=== PATIENT | female | born 1955 | race Caucasian/White ===

== ENCOUNTER → 2017-05-06 | Outpatient (CLI) | payer OTHER ==
[~2017-05-06] MED LIST: ACET325 PO; ALBU.083IS IH; ALBU8HFA2 INH; ALBU90I INH; ALBU90OI INH; ALBU90OI6 INH; ARIP10 PO; ASPI81EC PO; Abilify5 MG PO; Aspir-Trin325 MG PO; Augmentin 875-1 EACH PO; BISA10S PR; BUME2 PO; BUSP10 PO; BUSP5 PO; CEPH500 PO; CIPR250 PO; CIPR500 PO; CLON.1 PO; CLON1 PO; CLOT10 MT; CLOT10 SS; CYCL0.05OP; CYCL10 PO; Cipro500 MG PO; Cymbalta20 MG PO; DOCSEN PO; DOCU100 PO; DOXE10 PO; DOXE25 PO; DOXE50 PO; DULO30 PO; DULO60 PO; ENOX40I SC; FERR325 PO; FLUSAL1005 IH; FLUSAL2505 INH; FLUSAL5005 IH; FURO20 PO; FURO40 PO; Ferrous Glucon324 M1 PO; GABA100 PO; GABA300 PO; GUAI600T33 PO; HYDACE5 PO; HYDHOMSY; HYDMOR2 PO; HYDR1TAB94 PO; IBUP600 PO; IBUP800 PO; INSUASPI SC; INSULANI SC; INSULANPEN SC; LACT10SY PO; LACTULOSE20 GM/30 M PO; LAVAP17G PO; LEVFLO500 PO; LEVO750 PO; LIDO700A20 TOP; Lactulose10 GM/151 PO; MAGCHL64ER PO; MAGIC MOUTHWASH; MAGOXI400 PO; MEDR10 PO; METCAR500 PO; METF500 PO; METO2.5 PO; MILK THISTLE PO; MONT10T PO; MORP15ER PO; Melatonin5 M1 PO; Motion Sickness25 M1 PO; NICO21TP TOP; NORT10 PO; NYSTRITC; Norco 5-325 Ta1 EACH PO; Novolog Fl100 UNIT/1 SC; OLAN5 PO; OMEP20ER PO; OXYACE5T PO; OXYC10TA19 PO; OXYC5; OXYC5 PO; Omeprazole20 M1 PO; Oxycodone HCl20 M1 PO; Oxycontin20 MG PO; PANT40 PO; PERIDEX15 ML; PHENA200 PO; POTA10T; POTCHL20ER PO; PRAM.125 PO; PRAMIPEXOLE D0.25 MG PO; PRED10 PO; PRED20; PRED20 PO; Permethrin60 GM; Prednisone20 MG PO; Prilosec Otc20 MG PO; RANI150; RANI150 PO; RIFA550T2 PO; Robaxin500 MG PO; Ropinirole HCl0.5 MG PO; Roxicodone5 MG PO; SACC250C PO; SENN187 PO; SPIR50 PO; SPIRIVA RESPIMAT4 GM IH; TRAACE PO; Ultram50 MG PO; VANC250 IV; VANCOMYCIN2 GM/250 M IV; VITAMIN D PO; Ventolin/Prove6.7 GM; ZOLP10 PO; ZOLP5 PO; Zithromax250 MG PO; Zofran Odt4 MG SL; [UNRECOGNIZED DRUG - REMARK] PO
[2017-05-07 17:15] LABS: Creatinine Urine 17.2 mg/dL (27.00-270.00)
[2017-05-07 18:04] LABS: Calcium, Urine 6.9 mg/dL (2.0-17.5); Calcium, Urine Calculation 193.2 mg/24hrs (42.0-353.0)
== END ==
LOC: LAB 07:24 → LAB SHORT 07:24
PROVIDERS: Internal Medicine
DX: M81.0 Age-related osteoporosis without current pathological fracture (principal)
CPT/HCPCS: 81050; 82340; 82570

== ENCOUNTER → 2017-10-11 | Outpatient (CLI) | payer OTHER ==
[~2017-10-11] MED LIST changes: -BUSP10 PO; -BUSP5 PO; -GABA100 PO; -GABA300 PO; -HYDHOMSY; -HYDR1TAB94 PO; -IBUP800 PO; -LIDO700A20 TOP; -Lactulose10 GM/151 PO; -METCAR500 PO; -Omeprazole20 M1 PO; -PERIDEX15 ML; -POTA10T; -PRAM.125 PO; -PRAMIPEXOLE D0.25 MG PO; -RIFA550T2 PO; -Robaxin500 MG PO; -Ropinirole HCl0.5 MG PO; -SPIRIVA RESPIMAT4 GM IH; -Ultram50 MG PO; -Ventolin/Prove6.7 GM
[2017-10-11 16:16] LABS: BASOPHILS ABSOLUTE AUTO 0.07 K/mm3 (0.00-0.23); BASOPHILS PERCENT AUTO 1 % (0-2); EOSINOPHILS ABSOLUTE AUTO 0.39 K/mm3 (0.00-0.68); EOSINOPHILS PERCENT AUTO 5 % (0-6); Hematocrit 45.5 % (33.0-51.0); Hemoglobin 15.6 g/dL (11.5-16.0); IMMATURE GRAN ABSOLUTE AUTO 0.04 K/mm3 (0.00-0.10); IMMATURE GRAN PERCENT AUTO 1 % (0-1); LYMPHOCYTES ABSOLUTE AUTO 1.33 K/mm3 (0.84-5.20); LYMPHOCYTES PERCENT AUTO 15 % (21-46); MONOCYTES ABSOLUTE AUTO 0.59 K/mm3 (0.16-1.47); MONOCYTES PERCENT AUTO 7 % (4-13); Mean Corpuscular HGB 29.7 pg (26.0-34.0); Mean Corpuscular HGB Conc 34.3 g/dL (31.5-36.5); Mean Corpuscular Volume 87 fL (80-100); Mean Platelet Volume 12.4 fL (9.1-12.4); NEUTROPHILS ABSOLUTE AUTO 6.21 K/mm3 (1.96-9.15); NEUTROPHILS PERCENT AUTO 72 % (41-73); Platelet Count 85 K/mm3 (150-400); RDW Coefficient Variation 15.8 % (11.7-14.2); RDW Standard Deviation 48.6 fL (35.1-46.3); Red Blood Cell Count 5.26 M/mm3 (3.80-5.20); White Blood Cell Count 8.63 K/mm3 (4.00-11.30)
[2017-10-11 16:26] LABS: Albumin/Globulin Ratio 0.7 (0.8-1.8); Bilirubin, Total 1.8 mg/dL (0.1-1.0); Calcium, Blood 9.8 mg/dL (8.5-10.1); Creatinine, Blood 1.35 mg/dL (0.40-1.00); Globulin, Blood 4.1 g/dL (2.2-4.0); Total Protein, Blood 7.1 g/dL (6.4-8.2)
== END | disposition home or self-care (01) ==
LOC: LAB EV 16:12 → LAB SHORT 16:12
PROVIDERS: General Practice
DX: K74.60 Unspecified cirrhosis of liver (principal)
CPT/HCPCS: 80053; 85025

== ENCOUNTER → 2017-10-13 | Outpatient (CLI) | payer OTHER ==
[2017-10-13 17:06] LABS: Albumin, Blood 3.6 g/dL (3.4-5.0); Albumin/Globulin Ratio 0.9 (0.8-1.8); Bilirubin, Indirect 1.7 mg/dL (0.1-0.7); Bilirubin, Total 2.7 mg/dL (0.1-1.0); Creatinine, Blood 1.09 mg/dL (0.40-1.00); Globulin, Blood 4.2 g/dL (2.2-4.0); Total Protein, Blood 7.8 g/dL (6.4-8.2)
[2017-10-13 17:07] LABS: Potassium, Blood 6.3 mmol/L (3.5-5.5)
== END ==
LOC: LAB 16:34 → LAB SHORT 16:34
PROVIDERS: Internal Medicine Nephrology
DX: N18.3 Chronic kidney disease, stage 3 (moderate) (principal); E55.9 Vitamin D deficiency, unspecified; N25.81 Secondary hyperparathyroidism of renal origin; E78.00 Pure hypercholesterolemia, unspecified; E76.9 Glucosaminoglycan metabolism disorder, unspecified; R94.5 Abnormal results of liver function studies; R94.6 Abnormal results of thyroid function studies; D63.1 Anemia in chronic kidney disease
CPT/HCPCS: 80076; 82374; 82565; 84132; 84295

== ENCOUNTER → 2017-10-14 | Outpatient (CLI) | payer OTHER | END | disposition home or self-care (01) | LOC: LAB SHORT 11:39 → LAB 11:39 | DX: K74.60 Unspecified cirrhosis of liver (principal); K72.90 Hepatic failure, unspecified without coma | CPT/HCPCS: 82140 ==

== ENCOUNTER → 2017-10-14 | Outpatient (CLI) | payer OTHER ==
[2017-10-14 12:01] LABS: Potassium, Blood 4.3 mmol/L (3.5-5.5)
== END | disposition home or self-care (01) ==
LOC: LAB SHORT 11:38 → LAB 11:38
PROVIDERS: Internal Medicine Nephrology
DX: E87.5 Hyperkalemia (principal); E87.2 Acidosis
CPT/HCPCS: 82374; 84132

== ENCOUNTER 2017-10-21 17:36 | Observation (INO) | payer OTHER ==
[~2017-10-21] VITALS: Ht 152.4 cm; Wt 80.3 kg
[2017-10-21 20:04] LABS: BASOPHILS ABSOLUTE AUTO 0.02 K/mm3 (0.00-0.23); BASOPHILS PERCENT AUTO 0 % (0-2); EOSINOPHILS ABSOLUTE AUTO 0.33 K/mm3 (0.00-0.68); EOSINOPHILS PERCENT AUTO 6 % (0-6); Hematocrit 34.8 % (33.0-51.0); Hemoglobin 11.7 g/dL (11.5-16.0); IMMATURE GRAN ABSOLUTE AUTO 0.02 K/mm3 (0.00-0.10); IMMATURE GRAN PERCENT AUTO 0 % (0-1); LYMPHOCYTES ABSOLUTE AUTO 0.76 K/mm3 (0.84-5.20); LYMPHOCYTES PERCENT AUTO 15 % (21-46); MONOCYTES ABSOLUTE AUTO 0.59 K/mm3 (0.16-1.47); MONOCYTES PERCENT AUTO 12 % (4-13); Mean Corpuscular HGB 29.4 pg (26.0-34.0); Mean Corpuscular HGB Conc 33.6 g/dL (31.5-36.5); Mean Corpuscular Volume 87 fL (80-100); Mean Platelet Volume 11.2 fL (9.1-12.4); NEUTROPHILS ABSOLUTE AUTO 3.42 K/mm3 (1.96-9.15); NEUTROPHILS PERCENT AUTO 67 % (41-73); RDW Coefficient Variation 15.3 % (11.7-14.2); RDW Standard Deviation 49.2 fL (35.1-46.3); Red Blood Cell Count 3.98 M/mm3 (3.80-5.20); White Blood Cell Count 5.14 K/mm3 (4.00-11.30)
[2017-10-21] MEDS ORDERED: Lactulose10 GM/151 PO (20:07)
[2017-10-21] MEDS ORDERED: GABA300 PO (20:08)
[2017-10-21 20:09] LABS: Platelet Count 43 K/mm3 (150-400)
[2017-10-21 20:22] LABS: Magnesium, Blood 1.5 mg/dL (1.6-2.4)
[2017-10-21 20:38] LABS: Alanine Aminotransfer (ALT/SGP 54 U/L (12-78); Albumin, Blood 2.4 g/dL (3.4-5.0); Albumin/Globulin Ratio 0.8 (0.8-1.8); Alk Phos 255 U/L (50-136); Anion Gap 10 mmol/L (6-16); Aspartate Aminotrans (AST/SGOT 38 U/L (12-37); Bilirubin, Total 1.9 mg/dL (0.1-1.0); Blood Urea Nitrogen 8 mg/dL (8-24); Bun/Creatinine Ratio 11.9 (12.0-20.0); CO2, Blood 30 mmol/L (21-32); Chloride, Blood 97 mmol/L (98-108); Creatinine, Blood 0.67 mg/dL (0.40-1.00); Glomerular Filtration Rate >60 (60-); Glucose, Blood 212 mg/dL (70-99); Potassium, Blood 2.1 mmol/L (3.5-5.5); Sodium, Blood 137 mmol/L (136-145); Total Protein, Blood 5.4 g/dL (6.4-8.2)
[2017-10-22 03:27] LABS: BASOPHILS ABSOLUTE AUTO 0.02 K/mm3 (0.00-0.23); BASOPHILS PERCENT AUTO 1 % (0-2); EOSINOPHILS ABSOLUTE AUTO 0.23 K/mm3 (0.00-0.68); EOSINOPHILS PERCENT AUTO 7 % (0-6); Hematocrit 32.8 % (33.0-51.0); IMMATURE GRAN ABSOLUTE AUTO 0.01 K/mm3 (0.00-0.10); IMMATURE GRAN PERCENT AUTO 0 % (0-1); LYMPHOCYTES ABSOLUTE AUTO 0.62 K/mm3 (0.84-5.20); LYMPHOCYTES PERCENT AUTO 18 % (21-46); MONOCYTES ABSOLUTE AUTO 0.33 K/mm3 (0.16-1.47); MONOCYTES PERCENT AUTO 9 % (4-13); Mean Corpuscular HGB 29.5 pg (26.0-34.0); Mean Corpuscular HGB Conc 33.5 g/dL (31.5-36.5); Mean Corpuscular Volume 88 fL (80-100); Mean Platelet Volume 12.7 fL (9.1-12.4); NEUTROPHILS ABSOLUTE AUTO 2.32 K/mm3 (1.96-9.15); NEUTROPHILS PERCENT AUTO 66 % (41-73); RDW Coefficient Variation 15.4 % (11.7-14.2); RDW Standard Deviation 49.8 fL (35.1-46.3); Red Blood Cell Count 3.73 M/mm3 (3.80-5.20); White Blood Cell Count 3.53 K/mm3 (4.00-11.30)
[2017-10-22 03:34] LABS: Platelet Count 36 K/mm3 (150-400)
[2017-10-22 03:50] LABS: Alanine Aminotransfer (ALT/SGP 49 U/L (12-78); Albumin, Blood 2.1 g/dL (3.4-5.0); Albumin/Globulin Ratio 0.8 (0.8-1.8); Alk Phos 218 U/L (50-136); Anion Gap 8 mmol/L (6-16); Aspartate Aminotrans (AST/SGOT 34 U/L (12-37); Bilirubin, Total 1.5 mg/dL (0.1-1.0); Blood Urea Nitrogen 9 mg/dL (8-24); Bun/Creatinine Ratio 13.8 (12.0-20.0); CO2, Blood 31 mmol/L (21-32); Calcium, Blood 7.6 mg/dL (8.5-10.1); Chloride, Blood 99 mmol/L (98-108); Creatinine, Blood 0.65 mg/dL (0.40-1.00); Globulin, Blood 2.7 g/dL (2.2-4.0); Glomerular Filtration Rate >60 (60-); Glucose, Blood 299 mg/dL (70-99); Potassium, Blood 2.3 mmol/L (3.5-5.5); Sodium, Blood 138 mmol/L (136-145); Total Protein, Blood 4.8 g/dL (6.4-8.2)
[2017-10-22 05:26] LABS: Magnesium, Blood 2.3 mg/dL (1.6-2.4); Phosphorus, Blood 3.7 mg/dL (2.5-4.9)
[2017-10-22 13:12] LABS: Source, Urine Clean Catch
[2017-10-22 13:26] LABS: Appearance, Urine Clear (Clear); Bilirubin, Urine Neg (Neg); Blood, Urine 3+ (Neg); Color, Urine Yellow (P-Yellow); Glucose Qualitative, Urine 3+ (Neg); Ketones, Urine Neg (Neg); Leukocyte Esterase, Urine 1+ (Neg); Nitrite, Urine Neg (Neg); Protein, Urine Neg (Neg); Urobilinogen, Urine NORM (Normal)
[2017-10-22 13:35] LABS: Bacteria Many /hpf; Squamous Epithelial Cells Few /hpf (Few)
[2017-10-23 05:26] LABS: BASOPHILS ABSOLUTE AUTO 0.02 K/mm3 (0.00-0.23); BASOPHILS PERCENT AUTO 1 % (0-2); EOSINOPHILS ABSOLUTE AUTO 0.36 K/mm3 (0.00-0.68); EOSINOPHILS PERCENT AUTO 8 % (0-6); Hematocrit 32.8 % (33.0-51.0); IMMATURE GRAN ABSOLUTE AUTO 0.01 K/mm3 (0.00-0.10); IMMATURE GRAN PERCENT AUTO 0 % (0-1); LYMPHOCYTES ABSOLUTE AUTO 0.69 K/mm3 (0.84-5.20); LYMPHOCYTES PERCENT AUTO 16 % (21-46); MONOCYTES ABSOLUTE AUTO 0.39 K/mm3 (0.16-1.47); MONOCYTES PERCENT AUTO 9 % (4-13); Mean Corpuscular HGB 29.6 pg (26.0-34.0); Mean Corpuscular HGB Conc 33.5 g/dL (31.5-36.5); Mean Corpuscular Volume 88 fL (80-100); Mean Platelet Volume 10.8 fL (9.1-12.4); NEUTROPHILS ABSOLUTE AUTO 2.87 K/mm3 (1.96-9.15); NEUTROPHILS PERCENT AUTO 66 % (41-73); RDW Coefficient Variation 15.7 % (11.7-14.2); RDW Standard Deviation 50.6 fL (35.1-46.3); Red Blood Cell Count 3.71 M/mm3 (3.80-5.20); White Blood Cell Count 4.34 K/mm3 (4.00-11.30)
[2017-10-23 05:41] LABS: Platelet Count 43 K/mm3 (150-400)
[2017-10-23 05:46] LABS: Anion Gap 6 mmol/L (6-16); Blood Urea Nitrogen 10 mg/dL (8-24); Bun/Creatinine Ratio 13.6 (12.0-20.0); CO2, Blood 28 mmol/L (21-32); Calcium, Blood 8.8 mg/dL (8.5-10.1); Chloride, Blood 106 mmol/L (98-108); Creatinine, Blood 0.73 mg/dL (0.40-1.00); Glomerular Filtration Rate >60 (60-); Glucose, Blood 125 mg/dL (70-99); Magnesium, Blood 2.2 mg/dL (1.6-2.4); Phosphorus, Blood 2.6 mg/dL (2.5-4.9); Potassium, Blood 3.4 mmol/L (3.5-5.5); Sodium, Blood 140 mmol/L (136-145)
[2017-10-23] MEDS ORDERED: POTA10T (11:43)
== END 2017-10-23 12:32 | disposition home or self-care (01) ==
LOC: ER 17:36 → MEDS 17:37 → ENPENDDIS 10-23 09:30 → MEDS 10-23 12:32
PROVIDERS: Emergency Medicine; Hospitalist; Internal Medicine
DX: E87.6 Hypokalemia (principal); E83.42 Hypomagnesemia; J44.9 Chronic obstructive pulmonary disease, unspecified; E11.40 Type 2 diabetes mellitus with diabetic neuropathy, unspecified; F41.9 Anxiety disorder, unspecified; F32.9 Major depressive disorder, single episode, unspecified; B19.20 Unspecified viral hepatitis C without hepatic coma; F17.210 Nicotine dependence, cigarettes, uncomplicated; Z79.4 Long term (current) use of insulin; Z88.2 Allergy status to sulfonamides; Z88.5 Allergy status to narcotic agent; Z88.8 Allergy status to other drugs, medicaments and biological substances; Z79.899 Other long term (current) drug therapy
CPT/HCPCS: 36415; 80048; 80053; 81001; 82947; 83735; 84100; 84132; 85025; 87077; 87086; 87186; 93005; 93010; 94640; 94760; 96365; 96366; 96374; 96375; 96376; 99285; G0378; J0696; J1815; J2001; J2405; J3010; J3475; J3480; J7030; J7050; J7060

== ENCOUNTER → 2017-11-05 | Outpatient (CLI) | payer OTHER ==
[~2017-11-05] MED LIST changes: +GABA300 PO; +Lactulose10 GM/151 PO; +POTA10T
[2017-11-05 18:15] LABS: White Blood Cells, Urine TNTC /hpf (0-5)
[2017-11-05 18:16] LABS: Bacteria Few /hpf; Squamous Epithelial Cells Few /hpf (Few)
[2017-11-05 19:24] LABS: Protein, Urine Random 12.8 mg/dL (0.0-11.9)
[2017-11-05 19:38] LABS: Creatinine, Urine Random 10.5 mg/dL (27.00-270.00)
== END | disposition home or self-care (01) ==
LOC: LAB SHORT 12:30 → OLS 12:30
PROVIDERS: Internal Medicine
DX: K72.90 Hepatic failure, unspecified without coma (principal)
CPT/HCPCS: 81015; 82570; 84156

== ENCOUNTER → 2018-05-13 | Outpatient (CLI) | payer OTHER | LOC: LAB 17:41 → LAB SHORT 17:41 | DX: N39.0 Urinary tract infection, site not specified (principal) | CPT/HCPCS: 87077; 87086; 87186 ==

== ENCOUNTER → 2018-06-09 | Outpatient (CLI) | payer OTHER ==
[~2018-06-09] MED LIST changes: +BUSP5 PO; +HYDHOMSY; +METCAR500 PO; +PERIDEX15 ML; +PRAM.125 PO; +SPIRIVA RESPIMAT4 GM IH; +Ventolin/Prove6.7 GM
[2018-06-09 12:43] LABS: Source, Urine Clean Catch
[2018-06-09 14:11] LABS: White Blood Cells, Urine 25-50 /hpf (0-5)
[2018-06-09 14:12] LABS: Bacteria Many /hpf; Squamous Epithelial Cells Rare /hpf (Few)
== END ==
LOC: LAB SHORT 12:24 → LAB 12:24 → LAB FUT 05-05 17:30
PROVIDERS: Nurse Practitioner Family
DX: R32 Unspecified urinary incontinence (principal); E11.9 Type 2 diabetes mellitus without complications
CPT/HCPCS: 81015; 82043; 87077; 87086; 87186

== ENCOUNTER 2018-06-18 00:22 | Emergency (ER) | payer OTHER ==
[~2018-06-18] VITALS: Ht 149.9 cm; Wt 72.6 kg
[~2018-06-18 00:22] MED LIST changes: -BUSP5 PO; -HYDHOMSY; -METCAR500 PO; -PERIDEX15 ML; -PRAM.125 PO; -SPIRIVA RESPIMAT4 GM IH; -Ventolin/Prove6.7 GM
[2018-06-18] MEDS ORDERED: Ventolin/Prove6.7 GM (00:45)
[2018-06-18] MEDS ORDERED: DOXE50 PO (00:45)
[2018-06-18] MEDS ORDERED: POTCHL20ER PO (00:45)
[2018-06-18] MEDS ORDERED: LEVO750 PO (00:45)
[2018-06-18] MEDS ORDERED: BUSP5 PO (00:46)
[2018-06-18] MEDS ORDERED: METCAR500 PO (00:46)
[2018-06-18] MEDS ORDERED: SPIRIVA RESPIMAT4 GM IH (00:46)
[2018-06-18] MEDS ORDERED: HYDHOMSY (00:46)
[2018-06-18] MEDS ORDERED: PERIDEX15 ML (00:47)
== END 2018-06-18 02:14 | disposition home or self-care (01) ==
LOC: ER 00:22
DX: R07.89 Other chest pain (principal); J44.9 Chronic obstructive pulmonary disease, unspecified; Z88.2 Allergy status to sulfonamides; Z88.5 Allergy status to narcotic agent; Z87.891 Personal history of nicotine dependence; Z79.899 Other long term (current) drug therapy
CPT/HCPCS: 71046; 93005; 93010; 96372; 99283-25; J1885

== ENCOUNTER → 2018-06-18 | Outpatient (CLI) | payer OTHER ==
[2018-06-18 23:03] LABS: Adenovirus F 40/41 Not Detected (NOT DETECT); Astrovirus Not Detected (NOT DETECT); Campylobacter Sp Not Detected (NOT DETECT); Cryptosporidium Not Detected (NOT DETECT); Cyclospora Cayetanensis Not Detected (NOT DETECT); E. Coli O157 Not Detected (NOT DETECT); Entamoeba Histolytica Not Detected (NOT DETECT); Enteroaggregative E. coli-EAEC Not Detected (NOT DETECT); Enteropathogenic E. coli-EPEC Not Detected (NOT DETECT); Enterotoxigenic E. coli-ETEC Not Detected (NOT DETECT); Giardia Lamblia Not Detected (NOT DETECT); Norovirus GI/GII Not Detected (NOT DETECT); Plesiomonas Shigelloides Not Detected (NOT DETECT); Rotavirus A Not Detected (NOT DETECT); Salmonella Sp Not Detected (NOT DETECT); Sapovirus Not Detected (NOT DETECT); Shiga Toxin-prod E. coli-STEC Not Detected (NOT DETECT); Shigella/Enteroin E. coli-EIEC Not Detected (NOT DETECT); Vibrio Cholerae Not Detected (NOT DETECT); Vibrio Sp Not Detected (NOT DETECT); Yersinia Enterocolitica Not Detected (NOT DETECT)
== END | disposition home or self-care (01) ==
LOC: LAB SHORT 16:05 → LAB 16:05
PROVIDERS: Internal Medicine Gastroenterology
DX: R19.7 Diarrhea, unspecified (principal)
CPT/HCPCS: 87507

== ENCOUNTER 2018-07-27 01:42 | Emergency (ER) | payer OTHER ==
[~2018-07-27] VITALS: Ht 149.9 cm; Wt 68.0 kg
[~2018-07-27 01:42] MED LIST changes: +BUSP5 PO; +HYDHOMSY; +METCAR500 PO; +PERIDEX15 ML; +SPIRIVA RESPIMAT4 GM IH; +Ventolin/Prove6.7 GM
[2018-07-27] MEDS ORDERED: PRAM.125 PO (02:28)
== END 2018-07-27 03:42 | disposition home or self-care (01) ==
LOC: ER 01:42
DX: G25.81 Restless legs syndrome (principal); F41.9 Anxiety disorder, unspecified; Z88.2 Allergy status to sulfonamides; Z88.8 Allergy status to other drugs, medicaments and biological substances; Z88.5 Allergy status to narcotic agent; Z79.899 Other long term (current) drug therapy; Z79.891 Long term (current) use of opiate analgesic; Z79.4 Long term (current) use of insulin; J44.9 Chronic obstructive pulmonary disease, unspecified; F17.210 Nicotine dependence, cigarettes, uncomplicated

== ENCOUNTER 2018-08-29 17:33 | Emergency (ER) | payer OTHER ==
[~2018-08-29] VITALS: Ht 149.9 cm; Wt 68.0 kg
[~2018-08-29 17:33] MED LIST changes: +PRAM.125 PO
[2018-08-29] MEDS ORDERED: IBUP800 PO (18:32)
[2018-08-29] MEDS ORDERED: Norco 5-325 Ta1 EACH PO (18:32)
== END 2018-08-29 18:40 | disposition home or self-care (01) ==
LOC: ER 17:33
DX: R07.81 Pleurodynia (principal); M79.671 Pain in right foot; J45.909 Unspecified asthma, uncomplicated; Z88.2 Allergy status to sulfonamides; Z88.5 Allergy status to narcotic agent; Z88.8 Allergy status to other drugs, medicaments and biological substances; Z79.899 Other long term (current) drug therapy; Z86.19 Personal history of other infectious and parasitic diseases; Z87.891 Personal history of nicotine dependence; Z79.4 Long term (current) use of insulin
CPT/HCPCS: 71101; 73630; 99283-25

== ENCOUNTER 2018-09-05 20:43 | Emergency (ER) | payer OTHER ==
[~2018-09-05] VITALS: Ht 149.9 cm; Wt 68.0 kg
[~2018-09-05 20:43] MED LIST changes: +IBUP800 PO
[2018-09-05] MEDS ORDERED: BUSP10 PO (21:36)
[2018-09-05] MEDS ORDERED: GABA100 PO (21:36)
[2018-09-05] MEDS ORDERED: PRAMIPEXOLE D0.25 MG PO (21:36)
[2018-09-05] MEDS ORDERED: Omeprazole20 M1 PO (21:37)
[2018-09-05] MEDS ORDERED: DULO60 PO (21:38)
[2018-09-05] MEDS ORDERED: Ropinirole HCl0.5 MG PO (21:38)
[2018-09-05] MEDS ORDERED: RIFA550T2 PO (21:42)
[2018-09-05 21:44] LABS: Source, Urine Clean Catch
[2018-09-05 21:46] LABS: Bilirubin, Urine Neg (Neg); Blood, Urine Neg (Neg); Glucose Qualitative, Urine Neg (Neg); Ketones, Urine Neg (Neg); Leukocyte Esterase, Urine Neg (Neg); Nitrite, Urine Neg (Neg); Protein, Urine Neg (Neg); Specific Gravity, Urine 1.005 (1.003-1.022); Urobilinogen, Urine NORM (Normal)
[2018-09-05 21:47] LABS: Appearance, Urine Clear (Clear); Color, Urine Yellow (P-Yellow)
[2018-09-05 21:47] LABS: BASOPHILS ABSOLUTE AUTO 0.02 K/mm3 (0.00-0.23); BASOPHILS PERCENT AUTO 0 % (0-2); EOSINOPHILS ABSOLUTE AUTO 0.25 K/mm3 (0.00-0.68); EOSINOPHILS PERCENT AUTO 6 % (0-6); Hematocrit 32.9 % (33.0-51.0); Hemoglobin 10.3 g/dL (11.5-16.0); IMMATURE GRAN ABSOLUTE AUTO 0.01 K/mm3 (0.00-0.10); IMMATURE GRAN PERCENT AUTO 0 % (0-1); LYMPHOCYTES ABSOLUTE AUTO 0.73 K/mm3 (0.84-5.20); LYMPHOCYTES PERCENT AUTO 16 % (21-46); MONOCYTES ABSOLUTE AUTO 0.42 K/mm3 (0.16-1.47); MONOCYTES PERCENT AUTO 9 % (4-13); Mean Corpuscular HGB 24.6 pg (26.0-34.0); Mean Corpuscular HGB Conc 31.3 g/dL (31.5-36.5); Mean Corpuscular Volume 79 fL (80-100); NEUTROPHILS ABSOLUTE AUTO 3.08 K/mm3 (1.96-9.15); NEUTROPHILS PERCENT AUTO 68 % (41-73); Platelet Count 59 K/mm3 (150-400); RDW Coefficient Variation 19.6 % (11.7-14.2); RDW Standard Deviation 54.7 fL (35.1-46.3); Red Blood Cell Count 4.19 M/mm3 (3.80-5.20); White Blood Cell Count 4.51 K/mm3 (4.00-11.30)
[2018-09-05 22:03] LABS: Alanine Aminotransfer (ALT/SGP 52 U/L (12-78); Albumin, Blood 2.9 g/dL (3.4-5.0); Albumin/Globulin Ratio 0.8 (0.8-1.8); Alk Phos 284 U/L (50-136); Anion Gap 8 mmol/L (6-16); Aspartate Aminotrans (AST/SGOT 42 U/L (12-37); Bilirubin, Total 1.4 mg/dL (0.1-1.0); Blood Urea Nitrogen 19 mg/dL (8-24); Bun/Creatinine Ratio 25.2 (12.0-20.0); CO2, Blood 27 mmol/L (21-32); Calcium, Blood 8.6 mg/dL (8.5-10.1); Chloride, Blood 100 mmol/L (98-108); Creatinine, Blood 0.75 mg/dL (0.40-1.00); Globulin, Blood 3.8 g/dL (2.2-4.0); Glomerular Filtration Rate >60 (60-); Glucose, Blood 256 mg/dL (70-99); Sodium, Blood 135 mmol/L (136-145); Total Protein, Blood 6.7 g/dL (6.4-8.2)
[2018-09-05] MEDS ORDERED: Ultram50 MG PO (22:26)
== END 2018-09-05 23:20 | disposition home or self-care (01) ==
LOC: ER 20:43
PROVIDERS: Emergency Medicine
DX: S92.354A Nondisplaced fracture of fifth metatarsal bone, right foot, initial encounter for closed fracture (principal); R51 Headache; J44.9 Chronic obstructive pulmonary disease, unspecified; F17.200 Nicotine dependence, unspecified, uncomplicated; Z88.2 Allergy status to sulfonamides; Z88.5 Allergy status to narcotic agent; Z88.8 Allergy status to other drugs, medicaments and biological substances; Z79.899 Other long term (current) drug therapy; Z86.19 Personal history of other infectious and parasitic diseases; W19.XXXA Unspecified fall, initial encounter
CPT/HCPCS: 36415; 80053; 81003; 85025; 93005; 93010; 99283-25

== ENCOUNTER → 2018-09-30 | Outpatient (CLI) | payer OTHER ==
[~2018-09-30] MED LIST changes: +BUSP10 PO; +GABA100 PO; +HYDR1TAB94 PO; +LIDO700A20 TOP; +Omeprazole20 M1 PO; +PRAMIPEXOLE D0.25 MG PO; +RIFA550T2 PO; +Robaxin500 MG PO; +Ropinirole HCl0.5 MG PO; +Ultram50 MG PO
== END | disposition home or self-care (01) ==
LOC: LAB SHORT 17:33 → LAB 17:33
DX: N39.0 Urinary tract infection, site not specified (principal)
CPT/HCPCS: 87086

== ENCOUNTER 2018-10-09 22:02 | Emergency (ER) | payer OTHER ==
[~2018-10-09] VITALS: Ht 149.9 cm; Wt 69.0 kg
== END 2018-10-10 01:50 | disposition home or self-care (01) ==
LOC: ER 22:02
DX: S09.90XA Unspecified injury of head, initial encounter (principal); W01.198A Fall on same level from slipping, tripping and stumbling with subsequent striking against other object, initial encounter; Z88.2 Allergy status to sulfonamides; Z88.5 Allergy status to narcotic agent; Z88.8 Allergy status to other drugs, medicaments and biological substances; Z79.899 Other long term (current) drug therapy; Z79.4 Long term (current) use of insulin; J44.9 Chronic obstructive pulmonary disease, unspecified; F17.200 Nicotine dependence, unspecified, uncomplicated
CPT/HCPCS: 70450; 72125; 96372; 99283-25; J1885; L0160

== ENCOUNTER 2018-11-02 08:34 | Emergency (ER) | payer OTHER ==
[~2018-11-02] VITALS: Ht 149.9 cm; Wt 69.0 kg
[2018-11-02] MEDS ORDERED: Robaxin500 MG PO (10:34)
[2018-11-02] MEDS ORDERED: LIDO700A20 TOP (10:34)
[2018-11-02] MEDS ORDERED: Norco 5-325 Ta1 EACH PO (10:34)
== END 2018-11-02 10:45 | disposition home or self-care (01) ==
LOC: ER 08:34
DX: S22.41XA Multiple fractures of ribs, right side, initial encounter for closed fracture (principal); W19.XXXA Unspecified fall, initial encounter; Z88.2 Allergy status to sulfonamides; Z88.8 Allergy status to other drugs, medicaments and biological substances; Z88.5 Allergy status to narcotic agent; Z79.899 Other long term (current) drug therapy; Z79.4 Long term (current) use of insulin; J44.9 Chronic obstructive pulmonary disease, unspecified; F17.200 Nicotine dependence, unspecified, uncomplicated
CPT/HCPCS: 71101; 99283-25

== ENCOUNTER 2018-11-04 23:41 | Emergency (ER) | payer OTHER ==
[~2018-11-04] VITALS: Ht 149.9 cm; Wt 70.3 kg
[2018-11-05 01:00] LABS: BASOPHILS ABSOLUTE AUTO 0.03 K/mm3 (0.00-0.23); BASOPHILS PERCENT AUTO 1 % (0-2); EOSINOPHILS ABSOLUTE AUTO 0.31 K/mm3 (0.00-0.68); EOSINOPHILS PERCENT AUTO 6 % (0-6); Hematocrit 30.8 % (33.0-51.0); Hemoglobin 9.4 g/dL (11.5-16.0); IMMATURE GRAN ABSOLUTE AUTO 0.02 K/mm3 (0.00-0.10); IMMATURE GRAN PERCENT AUTO 0 % (0-1); LYMPHOCYTES ABSOLUTE AUTO 0.81 K/mm3 (0.84-5.20); LYMPHOCYTES PERCENT AUTO 16 % (21-46); MONOCYTES ABSOLUTE AUTO 0.53 K/mm3 (0.16-1.47); MONOCYTES PERCENT AUTO 11 % (4-13); Mean Corpuscular HGB Conc 30.5 g/dL (31.5-36.5); Mean Corpuscular Volume 79 fL (80-100); NEUTROPHILS ABSOLUTE AUTO 3.37 K/mm3 (1.96-9.15); NEUTROPHILS PERCENT AUTO 66 % (41-73); Platelet Count 54 K/mm3 (150-400); RDW Coefficient Variation 21.7 % (11.7-14.2); RDW Standard Deviation 61.2 fL (35.1-46.3); Red Blood Cell Count 3.91 M/mm3 (3.80-5.20); White Blood Cell Count 5.07 K/mm3 (4.00-11.30)
[2018-11-05 01:13] LABS: International Normalized Ratio 1.27; Prothrombin Time Results 13.2 Sec (9.7-11.5)
[2018-11-05 01:20] LABS: Alanine Aminotransfer (ALT/SGP 41 U/L (12-78); Albumin, Blood 2.6 g/dL (3.4-5.0); Albumin/Globulin Ratio 0.8 (0.8-1.8); Alk Phos 232 U/L (50-136); Anion Gap 7 mmol/L (6-16); Aspartate Aminotrans (AST/SGOT 25 U/L (12-37); Blood Urea Nitrogen 14 mg/dL (8-24); Bun/Creatinine Ratio 17.9 (12.0-20.0); CO2, Blood 27 mmol/L (21-32); Chloride, Blood 102 mmol/L (98-108); Creatinine, Blood 0.78 mg/dL (0.40-1.00); Globulin, Blood 3.4 g/dL (2.2-4.0); Glomerular Filtration Rate >60 (60-); Glucose, Blood 96 mg/dL (70-99); Potassium, Blood 4.2 mmol/L (3.5-5.5); Sodium, Blood 136 mmol/L (136-145)
== END 2018-11-05 02:01 | disposition home or self-care (01) ==
LOC: ER 23:41
PROVIDERS: Emergency Medicine
DX: S30.1XXA Contusion of abdominal wall, initial encounter (principal); W18.30XA Fall on same level, unspecified, initial encounter; Z88.2 Allergy status to sulfonamides; Z88.8 Allergy status to other drugs, medicaments and biological substances; Z88.5 Allergy status to narcotic agent; Z79.899 Other long term (current) drug therapy; Z79.4 Long term (current) use of insulin; J44.9 Chronic obstructive pulmonary disease, unspecified; F17.290 Nicotine dependence, other tobacco product, uncomplicated
CPT/HCPCS: 36415; 80053; 82140; 83690; 85025; 85610; 99283; A9270-GY

== ENCOUNTER → 2018-11-10 | Outpatient (CLI) | payer OTHER ==
[2018-11-10 13:15] LABS: BASOPHILS ABSOLUTE AUTO 0.02 K/mm3 (0.00-0.23); BASOPHILS PERCENT AUTO 1 % (0-2); EOSINOPHILS ABSOLUTE AUTO 0.38 K/mm3 (0.00-0.68); EOSINOPHILS PERCENT AUTO 9 % (0-6); Hematocrit 30.2 % (33.0-51.0); Hemoglobin 9.8 g/dL (11.5-16.0); IMMATURE GRAN ABSOLUTE AUTO 0.02 K/mm3 (0.00-0.10); IMMATURE GRAN PERCENT AUTO 1 % (0-1); LYMPHOCYTES ABSOLUTE AUTO 0.64 K/mm3 (0.84-5.20); LYMPHOCYTES PERCENT AUTO 15 % (21-46); MONOCYTES ABSOLUTE AUTO 0.51 K/mm3 (0.16-1.47); MONOCYTES PERCENT AUTO 12 % (4-13); Mean Corpuscular HGB 24.2 pg (26.0-34.0); Mean Corpuscular HGB Conc 32.5 g/dL (31.5-36.5); NEUTROPHILS ABSOLUTE AUTO 2.64 K/mm3 (1.96-9.15); NEUTROPHILS PERCENT AUTO 63 % (41-73); RDW Standard Deviation 55.6 fL (35.1-46.3); Red Blood Cell Count 4.05 M/mm3 (3.80-5.20); White Blood Cell Count 4.21 K/mm3 (4.00-11.30)
[2018-11-10 13:58] LABS: Mean Corpuscular Volume 75 fL (80-100)
[2018-11-10 14:54] LABS: Platelet Count 87 K/mm3 (150-400)
== END | disposition home or self-care (01) ==
LOC: LAB EV 12:55 → LAB SHORT 12:55
PROVIDERS: Physician Assistant
DX: S20.211D Contusion of right front wall of thorax, subsequent encounter (principal)
CPT/HCPCS: 85025

== ENCOUNTER 2019-01-19 21:06 | Emergency (ER) | payer OTHER ==
[~2019-01-19] VITALS: Ht 149.9 cm; Wt 67.1 kg
== END 2019-01-19 23:43 | disposition home or self-care (01) ==
LOC: ER 21:06
DX: G25.81 Restless legs syndrome (principal); Z88.2 Allergy status to sulfonamides; Z88.8 Allergy status to other drugs, medicaments and biological substances; Z88.5 Allergy status to narcotic agent; Z79.899 Other long term (current) drug therapy; Z79.4 Long term (current) use of insulin; J44.9 Chronic obstructive pulmonary disease, unspecified; F17.200 Nicotine dependence, unspecified, uncomplicated
CPT/HCPCS: 96372; 99283-25; J1885

== ENCOUNTER → 2019-01-27 | Outpatient (CLI) | payer OTHER ==
[2019-02-01 13:19] LABS: Stool Occult Bld Immuno 1 Negative (NEGATIVE)
== END | disposition home or self-care (01) ==
LOC: LAB 13:00 → LAB SHORT 13:00
PROVIDERS: Internal Medicine Gastroenterology
DX: K57.30 Diverticulosis of large intestine without perforation or abscess without bleeding (principal); Z86.010 Personal history of colon polyps
CPT/HCPCS: 82274

== ENCOUNTER → 2019-02-10 | Outpatient (CLI) | payer OTHER | END | disposition home or self-care (01) | LOC: LAB SHORT 15:39 → LAB EV 15:39 | DX: J02.9 Acute pharyngitis, unspecified (principal) | CPT/HCPCS: 87081; 87102; 87106 ==

== ENCOUNTER 2019-03-15 20:08 | Emergency (ER) | payer OTHER ==
[~2019-03-15] VITALS: Ht 152.4 cm; Wt 81.7 kg
[2019-03-15] MEDS ORDERED: Norco 5-325 Ta1 EACH PO (21:44)
== END 2019-03-15 21:56 | disposition home or self-care (01) ==
LOC: ER 20:08
DX: S22.41XA Multiple fractures of ribs, right side, initial encounter for closed fracture (principal); J44.9 Chronic obstructive pulmonary disease, unspecified; F17.200 Nicotine dependence, unspecified, uncomplicated; Z88.2 Allergy status to sulfonamides; Z88.8 Allergy status to other drugs, medicaments and biological substances; Z88.5 Allergy status to narcotic agent; Z79.899 Other long term (current) drug therapy; Z79.4 Long term (current) use of insulin; W01.0XXA Fall on same level from slipping, tripping and stumbling without subsequent striking against object, initial encounter
CPT/HCPCS: 71101; 99283-25; A9270; A9270-GY

== ENCOUNTER 2019-04-26 17:45 | Emergency (ER) | payer OTHER ==
[~2019-04-26] VITALS: Ht 149.9 cm; Wt 77.1 kg
[2019-04-26] MEDS ORDERED: Norco 5-325 Ta1 EACH PO (19:05)
== END 2019-04-26 19:19 | disposition home or self-care (01) ==
LOC: ER 17:45
DX: M53.3 Sacrococcygeal disorders, not elsewhere classified (principal); W18.30XA Fall on same level, unspecified, initial encounter; Z88.2 Allergy status to sulfonamides; Z88.8 Allergy status to other drugs, medicaments and biological substances; Z88.5 Allergy status to narcotic agent; Z79.899 Other long term (current) drug therapy; Z79.4 Long term (current) use of insulin; J44.9 Chronic obstructive pulmonary disease, unspecified; F17.200 Nicotine dependence, unspecified, uncomplicated
CPT/HCPCS: 72220; 99283-25; A9270-GY

== ENCOUNTER 2019-05-26 17:32 | Emergency (ER) | payer OTHER ==
[~2019-05-26] VITALS: Ht 149.9 cm; Wt 72.6 kg
[~2019-05-26 17:32] MED LIST changes: -Ropinirole HCl0.5 MG PO; +Ropinirole HCl1 MG PO
== END 2019-05-26 18:01 | disposition home or self-care (01) ==
LOC: ER 17:32
DX: M79.18 Myalgia, other site (principal); J44.9 Chronic obstructive pulmonary disease, unspecified; F17.200 Nicotine dependence, unspecified, uncomplicated; Z88.5 Allergy status to narcotic agent; Z79.899 Other long term (current) drug therapy; W19.XXXA Unspecified fall, initial encounter
CPT/HCPCS: 99283; A9270

== ENCOUNTER 2019-06-19 20:42 | Inpatient (IN) | payer OTHER ==
[~2019-06-19] VITALS: Ht 149.9 cm; Wt 82.2 kg
[2019-06-19 21:14] LABS: Hematocrit 40.2 % (33.0-51.0); Hemoglobin 12.2 g/dL (11.5-16.0); Mean Corpuscular HGB 30.7 pg (26.0-34.0); Mean Corpuscular HGB Conc 30.3 g/dL (31.5-36.5); Mean Corpuscular Volume 101 fL (80-100); Mean Platelet Volume 12.6 fL (9.1-12.4); Platelet Count 108 K/mm3 (150-400); RDW Coefficient Variation 15.9 % (11.7-14.2); Red Blood Cell Count 3.98 M/mm3 (3.80-5.20); White Blood Cell Count 30.01 K/mm3 (4.00-11.30)
[2019-06-19 21:15] LABS: Chloride (POC) 102 mmol/L (98-108); Creatinine (POC) 4.2 mg/dL (0.6-1.0); Glucose (ISTAT POC) 199 mg/dL (70-99); Hemoglobin (POC) 13.6 g/dL (12.0-16.0); Potassium (POC) 7.4 mmol/L (3.5-5.5); Sodium (POC) 128 mmol/L (135-148); Total CO2 (POC) 17 mmol/L (21-32)
[2019-06-19 21:35] LABS: Troponin I <0.015 ng/mL (0.000-0.040)
[2019-06-19 21:38] LABS: Alanine Aminotransfer (ALT/SGP 35 U/L (12-78); Albumin, Blood 2.4 g/dL (3.4-5.0); Albumin/Globulin Ratio 0.6 (0.8-1.8); Alk Phos 272 U/L (50-136); Anion Gap 14 mmol/L (6-16); Aspartate Aminotrans (AST/SGOT 40 U/L (12-37); Bilirubin, Total 2.7 mg/dL (0.1-1.0); Blood Urea Nitrogen 66 mg/dL (8-24); Bun/Creatinine Ratio 17.9 (12.0-20.0); CO2, Blood 16 mmol/L (21-32); Calcium, Blood 7.8 mg/dL (8.5-10.1); Chloride, Blood 101 mmol/L (98-108); Creatinine, Blood 3.69 mg/dL (0.40-1.00); Globulin, Blood 3.7 g/dL (2.2-4.0); Glomerular Filtration Rate 13 (60-); Glucose, Blood 198 mg/dL (70-99); Potassium, Blood 7.6 mmol/L (3.5-5.5); Sodium, Blood 131 mmol/L (136-145); Total Protein, Blood 6.1 g/dL (6.4-8.2)
[2019-06-19 21:41] LABS: BAND PERCENT MAN 23 % (0-8); BASOPHILS PERCENT MAN 0 % (0-2); EOSINOPHILS PERCENT MAN 0 % (0-6); LYMPHOCYTES PERCENT MAN 6 % (21-46); MONOCYTES PERCENT MAN 1 % (4-13); SEG NEUTROPHILS PERCENT MAN 70 % (41-73); TOTAL CELLS COUNTED 100
[2019-06-19 22:04] LABS: PCO2 Arterial 45.9 mmHg (35-45)
[2019-06-19 22:05] LABS: pH Blood Arterial 7.14 (7.35-7.45)
[2019-06-19 22:49] LABS: International Normalized Ratio 1.33
--- NOTE | 2019-06-19 23:25 | NUR ---
ADMIT: PT TRANSFERRED TO ICU 6 VIA GURNEY WITH HEART MONITOR ATTACHED, RN, RECREATIONAL ASSISTANT, AND RT AT BEDSIDE. PT ON BIPAP ON ARRIVAL. PT ABLE TO ANSWER SIMPLE QUESTIONS BUT GETS WINDED QUICK. LS COARSE DIMINISHED T/O WITH EXP WHEEZES T/O, VERY TIGHT. BIPAP 14/7 FIO2 40% WITH BIOX 93%. RR 17. PT DIFFICULT TO AROUSE AT TIMES. HEART SOUND DISTANT WITH MONITOR SHOWING ST WITH HR 102. SKIN PALE, COLD AND DRY. PPP BILAT AT 1+. PAS ON AND PUMPING. RIJ CENTRAL LINE WITH LEVOPHED @75CC/HR=20MCG/MIN. JUST TITRATED LEVOPHED DOWN TO 15MCG/MIN. NS BOLUS RUNNING IN. 20G IV LAC S/L. 18 G IV FIELD START L HAND S/L. ABD R/D WITH HYPO BTX4. GEORGE TEMP DRAINING DARK YELLOW URINE. TEMP 96.4
[2019-06-20] MEDS ORDERED: ALBU3IS INH (00:12)
[2019-06-20] MEDS ORDERED: Generlac10 GM/15 M PO (00:13)
[2019-06-20 00:54] LABS: Bun/Creatinine Ratio 18.3 (12.0-20.0); Calcium, Blood 7.3 mg/dL (8.5-10.1); Creatinine, Blood 3.39 mg/dL (0.40-1.00); Potassium, Blood 6.6 mmol/L (3.5-5.5)
--- NOTE | 2019-06-20 01:30 | NUR ---
CRITICAL VALUES: CRITICAL K+ 6.6 AND LACTIC ACID 4.[address] CHARLES WITH NEW ORDERS RECEIVED.
[2019-06-20 02:59] LABS: Adenovirus Not Detected (NOT DETECT); Bordetella pertussis Not Detected (NOT DETECT); Chlamydophila pneumoniae Not Detected (NOT DETECT); Coronavirus 229E Not Detected (NOT DETECT); Coronavirus HKU1 Not Detected (NOT DETECT); Coronavirus NL63 Not Detected (NOT DETECT); Coronavirus OC43 Not Detected (NOT DETECT); Human Metapneumovirus Not Detected (NOT DETECT); Human Rhinovirus/Enterovirus Not Detected (NOT DETECT); Influenza A Not Detected (NOT DETECT); Influenza A/2009-H1 Not Detected (NOT DETECT); Influenza A/H1 Not Detected (NOT DETECT); Influenza A/H3 Not Detected (NOT DETECT); Influenza B Not Detected (NOT DETECT); Mycoplasma pneumoniae Not Detected (NOT DETECT); Parainfluenza Virus 1 Not Detected (NOT DETECT); Parainfluenza Virus 2 Not Detected (NOT DETECT); Parainfluenza Virus 3 Not Detected (NOT DETECT); Parainfluenza Virus 4 Not Detected (NOT DETECT); Respiratory Syncytial Virus Not Detected (NOT DETECT)
[2019-06-20 04:45] LABS: Hematocrit 40.2 % (33.0-51.0); Hemoglobin 12.5 g/dL (11.5-16.0); Mean Corpuscular HGB 30.3 pg (26.0-34.0); Mean Corpuscular HGB Conc 31.1 g/dL (31.5-36.5); Mean Platelet Volume 11.6 fL (9.1-12.4); Platelet Count 129 K/mm3 (150-400); RDW Coefficient Variation 15.9 % (11.7-14.2); RDW Standard Deviation 57.1 fL (35.1-46.3); Red Blood Cell Count 4.12 M/mm3 (3.80-5.20); White Blood Cell Count 43.41 K/mm3 (4.00-11.30)
[2019-06-20 04:46] LABS: Mean Corpuscular Volume 98 fL (80-100)
[2019-06-20 05:09] LABS: Albumin/Globulin Ratio 0.8 (0.8-1.8); Bilirubin, Total 3.3 mg/dL (0.1-1.0); Bun/Creatinine Ratio 19.9 (12.0-20.0); Calcium, Blood 7.9 mg/dL (8.5-10.1); Creatinine, Blood 3.11 mg/dL (0.40-1.00); Globulin, Blood 3.7 g/dL (2.2-4.0); Potassium, Blood 6.4 mmol/L (3.5-5.5); Total Protein, Blood 6.7 g/dL (6.4-8.2)
--- NOTE | 2019-06-20 06:09 | NUR ---
SHIFT SUMMARY: PT IS NOW WIDE AWAKE AND JUST JIBBERING AWAY TO HERSELF. WHEN YOU GO IN THERE TO TALK WITH HER TO FIND OUT WHAT SHE WANTS, SHE'LL TALK TO YOU, THEN LAUGH. CONTINUALLY SAYS SHE HAS TO PEE, REMINDED THAT SHE HAS A GEORGE IN PLACE. K+ CONTINUES TO BE ELEVATED; HAS RECEIVED D50, INSULIN AND BICARB 2X FOR MY SHIFT AND ONCE IN THE ER. LEVOPHED HAS BEEN TITRATED DOWN TO 5MCG/MIN.
--- NOTE | 2019-06-20 09:01 | NUR ---
CARE ASSUMED CARE AND REPORT ASSUMED FROM HARLEEN ARMIJO. PT SLEEPING BUT EASILY AROUSES. WHEN SHE IS AWAKENED, SHE IS EUPORIC AND MOVES HER EXTREMITIES IN A SPASTIC MANOR. HAS DIFFICULTY FOLLOWING CONVERSATION. AFEBRILE 97.5. LEVOPHED GTT INFUSING AT 5 MCG; MAP 62-70. [place], HR 110. TOELRATING BIPAP WELL 14/7, FIO2 40%. PT ABLE TO TOLERATE FEW SIPS OF WATER AND TAKE PO PILLS. LUNG SOUNDS CLEAR BUT DIMINISHED AT THIS TIME. NS MIV INFUSING AT 100 ML/HR PER ORDER. WILL CONTINUE TO MONITOR. DISCUSSED WITH MD JERONIMO CRITICAL CARE CONSULT. WILL CONTINUE TO MONITOR.
[2019-06-20 11:16] LABS: Bun/Creatinine Ratio 22.1 (12.0-20.0); Calcium, Blood 7.5 mg/dL (8.5-10.1); Creatinine, Blood 2.94 mg/dL (0.40-1.00); Potassium, Blood 6.3 mmol/L (3.5-5.5)
[2019-06-20 11:49] LABS: Base Excess Venous -7.1 mmol/L; Bicarbonate Venous 18.9 mmol/L (24.0-30.0); PCO2 Venous 40.1 mmHg (38-42); PO2 Venous 57.2 mmHg (38-42); pH Blood Venous 7.29 (7.34-7.37)
--- NOTE | 2019-06-20 13:00 | NUR ---
REASSESSMENT PT INTUBATED AT 1212 TODAY AFTER STRUGGLING ON BIPAP. ETOMIDATE 20 MG AND ROCURONIUM 20 MG IVP GIVEN PRIOR TO INTUBATION. INTUBATION SMOOTHLY PERFORMED BY MD HUYNH. PT IMMEDIATELY PLACE IN BUE RESTRAINTS AND PROPOFOL GTT STARTED. OGT INSERTED AND PLACEMENT OF TUBES CONFIRMED WITH XRAY. 7.5 ETT, 23 AT LIP. VENT AC 16, TV 400, PEEP 10, FIO2 70%. CALCIUM GLUCONATE, 2 AMPS D50, AND 10 UNITS INSULIN GIVEN IVP FOR HIGH POTASSIUM. SODIUM BICARB GTT STARTED AT THIS TIME. WILL RECHECK CHEMISTRY THIS AFTERNOON. WILL CONTINUE TO MONITOR.
[2019-06-20 15:48] LABS: Base Excess Venous -7.8 mmol/L; Bicarbonate Venous 18.4 mmol/L (24.0-30.0); PCO2 Venous 41.1 mmHg (38-42); PO2 Venous 77.3 mmHg (38-42); pH Blood Venous 7.28 (7.34-7.37)
[2019-06-20 16:07] LABS: Anion Gap 9 mmol/L (6-16); Blood Urea Nitrogen 67 mg/dL (8-24); Bun/Creatinine Ratio 24.7 (12.0-20.0); CO2, Blood 21 mmol/L (21-32); Calcium, Blood 7.4 mg/dL (8.5-10.1); Chloride, Blood 104 mmol/L (98-108); Creatinine, Blood 2.71 mg/dL (0.40-1.00); Glomerular Filtration Rate 19 (60-); Glucose, Blood 293 mg/dL (70-99); Potassium, Blood 5.7 mmol/L (3.5-5.5); Sodium, Blood 134 mmol/L (136-145); Troponin I <0.015 ng/mL (0.000-0.040)
--- NOTE | 2019-06-20 16:10 | NUR ---
REASSESSMENT PT INTUBATED AND SEDATED. ETT PULLED BACK 5 CM; NOW 19 AT THE LIP; PLACEMENT VERIFIED WITH CXR AND MD HUYNH AWARE OF RESULTS. UPDATED AT BEDSIDE. VENT AC 16, 400, PEEP 10, FIO2 70%. SODIUM BICARB INFUSING AT 75 ML/HR PER ORDER. PROPOFOL GTT AT 40 MCG. LEVOPHED GTT AT 14 MCG; ATTEMPTING TO TITRATE DOWN. POTASSIUM LEVEL DECREASED TO 5.7 THIS AFTERNOON. BUE RESTRAINED. SINUSTACH, HR 120S. WILL CONTINUE TO MONITOR.
--- NOTE | 2019-06-20 17:05 | NUR ---
ECHOCARDIOGRAM COMPLETED
--- NOTE | 2019-06-20 18:11 | NUR ---
SHIFT SUMMARY PT INTUBATED AT 1212; SEE NOTE. SINCE THEN PT HAS BEEN ON PROPOFOL GTT. NIMBEX GTT STARTED 1700; INFUSING AT 2 MCG; PT TWITCHES TO STIMULATOR. FENTANYL 50 MCG IVP GIVEN NEEDED FOR SEDATION ADJUNCT. FAMILY UPDATED AT BEDSIDE. PT REMAINS IN BUE. HOB ELEVATED AND PT TURNED Q2H. OGT TO LIWS. LEVOPHED GTT INFUSING AT 14 MCG. SODIUM BICARB GTT INFUSING. MEDS GIVEN FOR POTASSIUM LEVEL. TMAX 99.4. WILL CONTINUE TO MONITOR.
--- NOTE | 2019-06-20 19:25 | NUR ---
ASSUMED CARE BEDSIDE REPORT RECIEVED. PT IS LAYING IN BED QUIETLY WITH SPOUSE AT BEDSIDE. PT IS INTUBATED, SEDATED, AND PARALYZED. VENT SETTINGS AC 16, TV 400, PEEP 10, FIO2 70%. VITAL SIGNS STABLE AT THIS TIME. CL TO RIJ C/D/I WITH BICARB INFUSING AT 75 ML/HR, PROPOFOL AT 40 MCG/KG/MIN, LEVOPHED 12 MCG/MIN, AND NIMBEX AT 2 MCG/KG/MIN. TRAIN OF FOUR IS 4/4 WITH NERVE STIMULATOR. PT TOLERATING VENT WELL AT THIS TIME. OGT IN PLACE TO LIS WITH BILE OUTPUT NOTED. GEORGE TEMP PROBE IN PLACE WITH YELLOW URINE OUTPUT NOTED. SBW RESTRAINTS IN PLACE. WILL CONTINUE TO MONITOR.
[2019-06-20 22:45] LABS: Vancomycin, Random 13.7 ug/mL
[2019-06-21 03:43] LABS: Bicarbonate Venous 25.4 mmol/L (24.0-30.0); PCO2 Venous 48.8 mmHg (38-42); PO2 Venous 55.8 mmHg (38-42); pH Blood Venous 7.36 (7.34-7.37)
[2019-06-21 03:48] LABS: Hematocrit 35.9 % (33.0-51.0); Hemoglobin 11.9 g/dL (11.5-16.0); Mean Corpuscular HGB 30.8 pg (26.0-34.0); Mean Corpuscular HGB Conc 33.1 g/dL (31.5-36.5); Mean Platelet Volume 10.2 fL (9.1-12.4); Platelet Count 114 K/mm3 (150-400); RDW Coefficient Variation 15.9 % (11.7-14.2); RDW Standard Deviation 53.5 fL (35.1-46.3); Red Blood Cell Count 3.86 M/mm3 (3.80-5.20); White Blood Cell Count 41.91 K/mm3 (4.00-11.30)
[2019-06-21 03:51] LABS: Mean Corpuscular Volume 93 fL (80-100)
[2019-06-21 04:08] LABS: BAND PERCENT MAN 21 % (0-8); BASOPHILS PERCENT MAN 0 % (0-2); EOSINOPHILS PERCENT MAN 0 % (0-6); LYMPHOCYTES ABSOLUTE MAN 0.83 K/mm3 (0.84-5.20); LYMPHOCYTES PERCENT MAN 2 % (21-46); MONOCYTES ABSOLUTE MAN 0.41 K/mm3 (0.16-1.47); MONOCYTES PERCENT MAN 1 % (4-13); NEUTROPHILS ABSOLUTE MAN 40.65 K/mm3 (1.96-9.15); SEG NEUTROPHILS PERCENT MAN 76 % (41-73); TOTAL CELLS COUNTED 100
[2019-06-21 04:10] LABS: Alanine Aminotransfer (ALT/SGP 35 U/L (12-78); Albumin, Blood 2.5 g/dL (3.4-5.0); Albumin/Globulin Ratio 0.7 (0.8-1.8); Alk Phos 184 U/L (50-136); Anion Gap 7 mmol/L (6-16); Aspartate Aminotrans (AST/SGOT 41 U/L (12-37); Bilirubin, Total 1.9 mg/dL (0.1-1.0); Blood Urea Nitrogen 70 mg/dL (8-24); Bun/Creatinine Ratio 32.4 (12.0-20.0); CO2, Blood 27 mmol/L (21-32); Calcium, Blood 7.4 mg/dL (8.5-10.1); Chloride, Blood 102 mmol/L (98-108); Creatinine, Blood 2.16 mg/dL (0.40-1.00); Globulin, Blood 3.7 g/dL (2.2-4.0); Glomerular Filtration Rate 25 (60-); Glucose, Blood 233 mg/dL (70-99); Magnesium, Blood 1.6 mg/dL (1.6-2.4); Phosphorus, Blood 4.3 mg/dL (2.5-4.9); Potassium, Blood 5.4 mmol/L (3.5-5.5); Sodium, Blood 136 mmol/L (136-145); Total Protein, Blood 6.2 g/dL (6.4-8.2); Troponin I <0.015 ng/mL (0.000-0.040)
--- NOTE | 2019-06-21 05:44 | NUR ---
SHIFT SUMMARY NO ACUTE CHANGES THIS SHIFT. PT REMAINS INTUBATED, SEDATED, AND PARALYZED. VENT SETTINGS AC 16, TV 400, PEEP 10 , FIO2 50%. PT WITH MINIMAL ETT SECRETIONS. CL TO RIJ IN PLACE WITH BICARB INFUSING AT 75 ML/HR, NS TKO, PROPOFOL 40 MCG/KG/MIN, NIMBEX 2 MCG/KG/MIN, AND LEVOPHED AT 9 MCG/MIN. VITAL SIGNS HAVE REMAINED STABLE. TRAIN OF FOUR HAS REMAINED 4/4 THIS SHIFT. PT TOLERATING VENT WELL. OGT IN PLACE TO LIS WITH MINIMAL TO NO OUTPUT NOTED. GEORGE TEMP PROBE IN PLACE WITH LARGE VOLUME OF YELLOW OUTPUT NOTED. SBW RESTRAINTS REMAIN IN PLACE. NO FAMILY AT BEDSIDE AT THIS TIME. WILL CONTINUE TO MONITOR AND REPORT OFF TO ONCOMING RN.
--- NOTE | 2019-06-21 09:18 | NUR ---
ASSUMED CARE: REPORT RECEIVED FROM FRANKLYN Harris RN. ASSUMED CARE OF THIS PT AT APPROX 0700. ON ASSESSMENT, THE PT IS INTUBATED, SEDATED & PARALYZED W/ NIMBEX. SHE APPEARS COMFORTABLE & TRAIN OF FOUR 4/4 W/ NERVE STIMULATOR USE. LS ARE COARSE T/O, PT REMAINS ON VENTILATOR W/ SETTINGS: AC 16/400/10/50%, O2 SATS > 90%. MONITOR SHOWS ST W/ HR 100s. BP STABLE W/ LEVOPHED DRIP TITRATION IN FLOWSHEET. 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 TEMP GEORGE PATENT/ DRAINING CLEAR YELLOW URINE. WILL CONTINUE TO MONITOR & UPDATE NEEDED.
--- NOTE | 2019-06-21 10:30 | NUR ---
CENTRAL LINE: DRESSING CHANGE COMPLETED AT APPROX 1000 USING STERILE TECHNIQUE.
--- NOTE | 2019-06-21 13:00 | NUR ---
TUBE FEEDINGS: VITAL HP TUBE FEEDS INITIATED AT APPROX 1300 AT 20 ML/HR, WHICH IS GOAL RATE. 30 ML H2O FLUSH Q4H. PER DIETARY ORDERS.
--- NOTE | 2019-06-21 17:31 | NUR ---
Antonina is well-known to me. she was on vent and minimally awake. She did not open eyes, but nodded that she understood I was present. Prayer and assurance provided. I will continue to visit Antonina in coming days.
--- NOTE | 2019-06-21 18:11 | NUR ---
SHIFT SUMMARY: NO ACUTE CHANGES SINCE PRIOR UPDATES. PT REMAINS INTUBATED, SEDATED W/ PROPOFOL, TITRATION IN FLOWSHEET. VENT SETTINGS: AC 16/400/10/40%, PT TOLERATING WELL W/ O2 SATS > 92%. LS COARSE T/O W/ EXP WHEEZING NOTED AT TIMES. MONITOR SHOWS SR-ST, HR 90-100s. BP STABLE W/ LEVOPHED TITRATION DOCUMENTED IN FLOWSHEET. PT TOLERATING TUBE FEED WELL W/ LOW RESIDUALS. TEMP GEORGE PATENT/ DRAINING CLEAR YELLOW URINE. SKIN OVERALL CDI, Q2H TURNS TO MAINTAIN SKIN INTEGRITY. WILL CONTINUE TO MONITOR & REPORT OFF TO ONCOMING RN.
--- NOTE | 2019-06-21 19:05 | NUR ---
ASSUME CARE: REPORT RECIEVED FROM OFF GOING RN BERTO. MONITOR INTACT SHOWING SINUS TACH. HEART RATE 100'S. INTUBATED SEDATED AND RESTRAINED. VENT SETTINGS AC 16, TV 400, FIO2 40%, PEEP 10, RATE 20-24, SPO2 95-99% LUNG SOUNDS COARSE AND DECREASED WITH OCC WHEEZE T/O. SX SMALL AMT OF COLMENARES SECRETUIONS. TF INFUSING AT 20ML/HR WHICH IS GOAL. 15 ML RESIDUAL REFED WITH ORAL CARE. ABDOMEN SOFT WITH BOWEL SOUNDS FOUR QUADS. GEORGE PATENT DRAINING HARVINDER URINE. PAS TO LOWER EXTREMITIES PEDAL PULSES PRESENT WIGGLES TOES AND FINGERS TO COMMAND. SPOUSE AT BEDSIDE FOR BEDSIDE REPORT. DRESSINGS INTACT TO VARIOUS WOUNDS ON BODY. CONTINUE TO MONITOR AND REPORT CHANGE IN PATIENT CONDITION
[2019-06-21 22:46] LABS: Vancomycin, Random 18.6 ug/mL
[2019-06-22 04:07] LABS: BASOPHILS ABSOLUTE AUTO 0.04 K/mm3 (0.00-0.23); BASOPHILS PERCENT AUTO 0 % (0-2); EOSINOPHILS ABSOLUTE AUTO 0.03 K/mm3 (0.00-0.68); EOSINOPHILS PERCENT AUTO 0 % (0-6); Hematocrit 33.9 % (33.0-51.0); Hemoglobin 11.2 g/dL (11.5-16.0); IMMATURE GRAN ABSOLUTE AUTO 0.39 K/mm3 (0.00-0.10); IMMATURE GRAN PERCENT AUTO 1 % (0-1); LYMPHOCYTES ABSOLUTE AUTO 0.72 K/mm3 (0.84-5.20); LYMPHOCYTES PERCENT AUTO 3 % (21-46); MONOCYTES ABSOLUTE AUTO 0.49 K/mm3 (0.16-1.47); MONOCYTES PERCENT AUTO 2 % (4-13); Mean Corpuscular HGB 30.4 pg (26.0-34.0); Mean Corpuscular Volume 92 fL (80-100); Mean Platelet Volume 10.3 fL (9.1-12.4); NEUTROPHILS ABSOLUTE AUTO 25.96 K/mm3 (1.96-9.15); NEUTROPHILS PERCENT AUTO 94 % (41-73); Platelet Count 68 K/mm3 (150-400); RDW Coefficient Variation 15.8 % (11.7-14.2); RDW Standard Deviation 52.7 fL (35.1-46.3); Red Blood Cell Count 3.69 M/mm3 (3.80-5.20); White Blood Cell Count 27.63 K/mm3 (4.00-11.30)
[2019-06-22 04:25] LABS: Albumin, Blood 2.2 g/dL (3.4-5.0); Albumin/Globulin Ratio 0.7 (0.8-1.8); Bilirubin, Total 1.4 mg/dL (0.1-1.0); Calcium, Blood 7.8 mg/dL (8.5-10.1); Creatinine, Blood 1.42 mg/dL (0.40-1.00); Globulin, Blood 3.3 g/dL (2.2-4.0); Magnesium, Blood 1.4 mg/dL (1.6-2.4); Potassium, Blood 4.4 mmol/L (3.5-5.5); Total Protein, Blood 5.5 g/dL (6.4-8.2)
[2019-06-22 05:16] LABS: International Normalized Ratio 1.34; Prothrombin Time Results 14.1 Sec (9.7-11.5)
[2019-06-22 05:41] LABS: PCO2 Arterial 43.2 mmHg (35-45); PO2 Arterial 52.2 mmHg (80-100); pH Blood Arterial 7.44 (7.35-7.45)
--- NOTE | 2019-06-22 06:42 | NUR ---
SHIFT SUMMARY REMAINS INTUBATED, SEDATED. AND RESTRAINED. VENT SETTINGS AC 16 TV 400, FIO2 50%, PEEP 10, RESPIRATIONS 20-24, SPO2 90-98%. LUNG SOUNDS COOARSE WITH DECREASED BASES. TUBE FEEDING INFUSING AT 20ML/HR PER [place] PUMP WITH 15,10, AND 15 MLS RESIDUAL REFED WITH ORAL CARE. ABDOMEN SOFT WITH BOWEL SOUNDS FOUR QUADS. GEORGE PATENT DRAINING HRAVINDER URINE. GENERALIZED DEPENDENT EDEMA NOTED WITH PAS TO LOWER EXTREMITIES AND ALL EXTREMITIES ELEVATED ON PILLOWS. CONTINUE TO MONITOR AND REPORT CHANGE IN PATIENT CONDITION. AROUSES TO VERBAL STIMULE AND ABLE TO FOLLOW SIMPLE COMMANDS I,E, WIGGLE TOES AND FINGERS. SX SMALL AMTS CREAMY COLMENARES PINK TINTGED SECRETIONS PER ETT.
--- NOTE | 2019-06-22 08:33 | NUR ---
ASSUMED CARE: REPORT RECEIVED FROM VÍCTOR Ceballos RN. ASSUMED CARE OF THIS PT AT APPROX 0700. ON ASSESSMENT, THE PT IS INTUBATED & SEDATED W/ PROPOFOL. SHE APPEARS COMFORTABLE & IS SHOWING NO S/SX PAIN OR DISCOMFORT AT THIS TIME. SHE AWAKENS EASILY TO VERBAL STIMULUS & IS FOLLOWING COMMANDS. LS ARE MORE CLEAR THAN YESTERDAY, SCANT AMNT CLEAR SPUTUM SUCTIONED THROUGH ETT. VENT SETTINGS: AC 16/400/10/50%. O2 SATS > 90%. MONITOR SHOWS SR-ST, 90-100s, BP STABLE W/ LEVOPHED DRIP. OGT W/ TF INFUSING AT GOAL RATE, LOW RESIDUALS. TEMP GEORGE PATENT/ DRAINING. SKIN OVERALL CDI, Q2H TURNS FOR SKIN INTEGRITY. WILL CONTINUE TO MONITOR & UPDATE NEEDED.
--- NOTE | 2019-06-22 10:59 | NUR ---
DR YEAGER: PROVIDER AT BEDSIDE TO EVAL PT. STS NO PLANS FOR EXTUBATION TODAY, ALLOW PT TO REST. CXR SLIGHTLY WORSENED & STILL REQUIRING HIGH PEEP TO MAINTAIN SATS. NO OTHER ORDERS AT THIS TIME. WILL CONTINUE TO MONITOR & UPDATE NEEDED.
--- NOTE | 2019-06-22 18:35 | NUR ---
SHIFT SUMMARY: NO ACUTE CHANGES SINCE PRIOR UPDATES. PT REMAINS INTUBATED & SEDATED W/ PROPOFOL. LS ARE MORE CLEAR, VENT SETTINGS: AC 16/400/10/45%. O2 SATS > 92%. MONITOR SHOWS SR-ST W/ HR 90-100s, BP STABLE W/ LEVOPHED DRIP TITRATION IN FLOWSHEET. PT PASSING FLATUS BUT NO BM TODAY. OGT CONTINUED W/ VITAL HP TUBE FEED AT GOAL RATE, RESIDUALS <15. TEMP GEORGE PATENT/ DRAINING CLEAR YELLOW URINE. DIFFUSE ABRASIONS TO SKIN SURFACE. WILL CONTINUE TO MONITOR & REPORT OFF TO ONCOMING RN.
[2019-06-23 04:30] LABS: BASOPHILS ABSOLUTE AUTO 0.02 K/mm3 (0.00-0.23); BASOPHILS PERCENT AUTO 0 % (0-2); EOSINOPHILS ABSOLUTE AUTO 0.27 K/mm3 (0.00-0.68); EOSINOPHILS PERCENT AUTO 2 % (0-6); Hematocrit 32.8 % (33.0-51.0); Hemoglobin 10.7 g/dL (11.5-16.0); IMMATURE GRAN ABSOLUTE AUTO 0.09 K/mm3 (0.00-0.10); IMMATURE GRAN PERCENT AUTO 1 % (0-1); LYMPHOCYTES PERCENT AUTO 4 % (21-46); MONOCYTES ABSOLUTE AUTO 0.48 K/mm3 (0.16-1.47); MONOCYTES PERCENT AUTO 3 % (4-13); Mean Corpuscular HGB 30.4 pg (26.0-34.0); Mean Corpuscular HGB Conc 32.6 g/dL (31.5-36.5); Mean Corpuscular Volume 93 fL (80-100); Mean Platelet Volume 11.5 fL (9.1-12.4); NEUTROPHILS ABSOLUTE AUTO 12.74 K/mm3 (1.96-9.15); NEUTROPHILS PERCENT AUTO 91 % (41-73); RDW Coefficient Variation 16.1 % (11.7-14.2); RDW Standard Deviation 55.2 fL (35.1-46.3); Red Blood Cell Count 3.52 M/mm3 (3.80-5.20)
[2019-06-23 04:32] LABS: Platelet Count 44 K/mm3 (150-400)
[2019-06-23 04:45] LABS: Anion Gap 7 mmol/L (6-16); Blood Urea Nitrogen 60 mg/dL (8-24); CO2, Blood 27 mmol/L (21-32); Calcium, Blood 8.1 mg/dL (8.5-10.1); Chloride, Blood 107 mmol/L (98-108); Glomerular Filtration Rate 48 (60-); Glucose, Blood 120 mg/dL (70-99); Phosphorus, Blood 2.8 mg/dL (2.5-4.9); Potassium, Blood 4.1 mmol/L (3.5-5.5); Sodium, Blood 141 mmol/L (136-145); Vancomycin, Random 16.6 ug/mL
[2019-06-23 05:31] LABS: PO2 Arterial 55.8 mmHg (80-100); pH Blood Arterial 7.43 (7.35-7.45)
--- NOTE | 2019-06-23 05:37 | NUR ---
ABG DRAWN PO2 55.8 INCREASE F102 TO 55%
--- NOTE | 2019-06-23 06:35 | NUR ---
PATIENT REMAINS INTUBATED AND SEDATED WITH VENT SET AT AC 16, TV 400, PEEP 10, FIO2 55% SUCTIONING THICK WHITE SPUTUM. FIO2 TITRATED UP BY RT DUE TO ABG RESULTS. TUBE FEEDING REMAINS AT GOAL RATE OF 20/HR WITH MIN RESIDUALS. LEVOPHED DRIP CONTINUES AT 3 MCG, ATTEMPTING TO KEEP MAP AT 60. HEPARIN DC'D DUE TO LOW PLT OF 44. PROPOFOL CONTINUE AT 45MCG FOR SEDATION PATIENT MOVING FEET SPONTANEOUSLY. GRIMACE WITH ORAL CARE AND DURING BATH. BILAT WRIST RESTRAINTS REMAIN IN PLACE DUE TO UNPREDICTABLE SEDATION AND BEHAVIOR.
--- NOTE | 2019-06-23 08:00 | NUR ---
INITIAL ASSESMENT PT INTUBATED AND SEDATED OB PROP. WILL WITHDRAW FROM PAIN AND GRIMACE, PUPILS EQUAL AND WILL NOT FOLLOW COMMANDS. HYPOTENSIVE AT TIMES WHEN WEANING LEVO AND WEANING TOLERATED FOR MAP GREATER THAN 60. PALP PULSES T/O AND AFEBRILE REMAINS IN SR. TOLERATING VENT SETTINGS BUT FIGHTS AND COUGHS VENT UPON REPOSITIONING AND SATS DROP TO HIGH 80S. DIMINISHED T/O AND SUCTIONED VIA ETT WITH MOD THICK YELLOW SXN. TOLERATING TF AND ABD SOFT ROUND AND OBESE WITH BTS T/O NO BM AND TO START BOWEL REG TONIGHT. INSULIN PER SS. UO ADEQUATE CLEAR YELLOW VIA GEORGE. TURN Q2 WILL WEAN VENT AND PRESSORS TOLERATED AND WILL CONT TO MONITOR
--- NOTE | 2019-06-23 12:00 | NUR ---
PT UPDATE REMAINS SEDATED WITH GRIMACE AND WITHDRAWL FROM PAINFUL STIM AND WEANING PROP TOLERATED. TOLERATING DECREASE OF PEEP TO 7.5 ALTHOUGH STILL DESATS WITH TURNS OR STIMULATION RELATED TO VENT RESITANCE AND COUGHING. SPUTUM TO BE SENT, SMALL YELLOW THICK SXN VIA ETT AND COURSE AND DIM BILAT. NO BM, UO ADEQUATE WILL CONT TO MONITOR
--- NOTE | 2019-06-23 16:00 | NUR ---
PT UPDATE WEANING VASOACTIVES AND VENT TOLERATED, VSS, AFEBRILE AND TURNS Q 2 HR WITH ORAL CARE PER PROTOCOL. UO ADEQUATE AND NO BM. WILL CONT TO MONITOR
--- NOTE | 2019-06-23 18:22 | NUR ---
No family present at time of visit. Prayed for Antonina at bedside and comforted through touch. She is sedated and non-responsive. Value Engineer services will remain available.
--- NOTE | 2019-06-23 21:40 | NUR ---
Assumed care at 1900. Bedside report given, Ed participated. Pt sedated, intubated, lines untangled, suction readjusted. Rails up, soft restraints have finger gap. Pt's limbs elevated for minor edema, repositioned.
[2019-06-24 04:01] LABS: BASOPHILS ABSOLUTE AUTO 0.01 K/mm3 (0.00-0.23); BASOPHILS PERCENT AUTO 0 % (0-2); EOSINOPHILS ABSOLUTE AUTO 0.25 K/mm3 (0.00-0.68); EOSINOPHILS PERCENT AUTO 4 % (0-6); Hematocrit 31.2 % (33.0-51.0); Hemoglobin 10.1 g/dL (11.5-16.0); IMMATURE GRAN ABSOLUTE AUTO 0.08 K/mm3 (0.00-0.10); IMMATURE GRAN PERCENT AUTO 1 % (0-1); LYMPHOCYTES ABSOLUTE AUTO 0.44 K/mm3 (0.84-5.20); LYMPHOCYTES PERCENT AUTO 6 % (21-46); MONOCYTES ABSOLUTE AUTO 0.43 K/mm3 (0.16-1.47); MONOCYTES PERCENT AUTO 6 % (4-13); Mean Corpuscular HGB 29.9 pg (26.0-34.0); Mean Corpuscular HGB Conc 32.4 g/dL (31.5-36.5); Mean Corpuscular Volume 92 fL (80-100); NEUTROPHILS ABSOLUTE AUTO 5.73 K/mm3 (1.96-9.15); NEUTROPHILS PERCENT AUTO 83 % (41-73); RDW Standard Deviation 53.5 fL (35.1-46.3); Red Blood Cell Count 3.38 M/mm3 (3.80-5.20); White Blood Cell Count 6.94 K/mm3 (4.00-11.30)
[2019-06-24 04:10] LABS: Platelet Count 28 K/mm3 (150-400)
[2019-06-24 04:20] LABS: Alanine Aminotransfer (ALT/SGP 35 U/L (12-78); Albumin, Blood 1.8 g/dL (3.4-5.0); Albumin/Globulin Ratio 0.6 (0.8-1.8); Alk Phos 206 U/L (50-136); Anion Gap 6 mmol/L (6-16); Aspartate Aminotrans (AST/SGOT 34 U/L (12-37); Bilirubin, Total 1.5 mg/dL (0.1-1.0); Blood Urea Nitrogen 49 mg/dL (8-24); Bun/Creatinine Ratio 50.4 (12.0-20.0); CO2, Blood 26 mmol/L (21-32); Calcium, Blood 8.1 mg/dL (8.5-10.1); Chloride, Blood 110 mmol/L (98-108); Creatinine, Blood 0.97 mg/dL (0.40-1.00); Globulin, Blood 3.2 g/dL (2.2-4.0); Glomerular Filtration Rate >60 (60-); Glucose, Blood 143 mg/dL (70-99); Magnesium, Blood 1.6 mg/dL (1.6-2.4); Phosphorus, Blood 2.1 mg/dL (2.5-4.9); Potassium, Blood 3.8 mmol/L (3.5-5.5); Sodium, Blood 142 mmol/L (136-145)
[2019-06-24 05:37] LABS: PCO2 Arterial 41.4 mmHg (35-45); pH Blood Arterial 7.44 (7.35-7.45)
[2019-06-24 05:38] LABS: PO2 Arterial 57.1 mmHg (80-100)
--- NOTE | 2019-06-24 08:00 | NUR ---
ASSUMED CARE: REPORT RECEIVED FROM FRANKLYN Harris, RN & MELVIN Castillo RN. ASSUMED CARE OF THIS PT AT APPROX 0700. ON ASSESSMENT, THE PT IS INTUBATED & SEDATED, APPEARS COMFORTABLE W/ NO CURRENT S/SX PAIN. LS ARE CLEAR IN UPPER LOBES, DIM IN LOWER LOBES. VENT SETTINGS: AC 16/400/7.5/55%. O2 SATS > 90% ON AVG, OCC DESATS TO 87% W/ COUGHING. MONITOR SHOWS SR W/ HR 90s, BP STABLE W/ LEVOPHED DRIP TITRATED IN FLOWSHEET. NO RESIDUAL DURING AM CHECK, VITAL HP TF INFUSING AT GOAL RATE. TEMP GEORGE PATENT/ DRAINING DARK YELLOW URINE. DIFFUSE BRUISING & SCABS TO SKIN SURFACE, REDNESS TO PANUS. WILL CONTINUE TO MONITOR & UPDATE NEEDED.
--- NOTE | 2019-06-24 08:45 | NUR ---
DR YEAGER: PROVIDER AT BEDSIDE TO EVAL PT. WOULD LIKE SEDATION VACATION TO BE COMPLETED & FOR HIM TO BE UPDATED ON PT's CURRENT NEURO STATUS. NO OTHER CHANGES AT THIS TIME. CONTINUE CURRENT VENT SETTINGS. WILL CONTINUE TO MONITOR & UPDATE NEEDED.
--- NOTE | 2019-06-24 10:36 | NUR ---
SEDATION VACATION: PROPOFOL ON STANDBY FROM . PT AWAKE W/ EYES OPEN SPONTANEOUSLY DURING THIS TIME. MOVEMENT IS NOTED DURING THIS TIME BUT NOT PURPOSEFUL. SHE CHEWS ON ETT, WINCES, MOVES BOTH LEGS & FEET CONTINUOUSLY, BUT DOES NOT MOVE BUE OR FOLLOW DIRECTION OTHER THAN TO OPEN EYES. SINCE SEDATION RESUMED, PT IS RESTING QUIETLY AGAIN. WILL CONTINUE TO MONITOR & UPDATE NEEDED.
--- NOTE | 2019-06-24 14:09 | NUR ---
CENTRAL LINE: PICC LINE PLACED BY JAI Leija RN, TO OSVALDO. CL TO R IJ REMOVED BY THIS RN AT 1345, MANUAL PRESSURE HELD FOR 10 MINS R/T PT's LOW PLATELET COUNT, NO OOZING NOTED AFTER MANUAL PRESSURE HELD. OCCLUSIVE DRESSING PLACED TO SITE & PT TOLERATED WE
--- NOTE | 2019-06-24 14:24 | NUR ---
ASSUMED CARE ASSUMED CARE OF PT FROM ALEKSANDER THOMSON. PT INTUBATED AND SEDATED. VENT SETTINGS AC 16, TV 400, PEEP 7.5, FIO2 55%. PT WITHDRAWS TO TACTILE STIMULUS. PROPOFOL GTT 40MCG/KG. MONITOR SHOWS SINUS RHYTHM/SINUS TACH WITH PAC'S, HR 90-100'S, BP WITH MAP >65 ON 2MCG/MIN LEVOPHED GTT. PT HAS OG TUBE IN PLACE WITH VITAL HIGH PROTEIN AT 20ML/HR c 30ML Q4H H2O FLUSH. ACTIVE BOWEL TONES T/O. PT HAD MEDIUM SOFT BM. PICC LINE PLACED TO OSVALDO THIS SHIFT, WITH LR AT 100ML/HR, PROPOFOL AND LEVOPHED. RIJ CL DC'D WITH PETROLEUM GAUZE PRESSURE DRESSING IN PLACE. ZAIN SOFT WRIST RESTRAINTS IN PLACE TO PROTECT LINES, TUBES. WILL CONTINUE TO MONITOR PT.
--- NOTE | 2019-06-24 15:30 | NUR ---
PT BECOMING RESTLESS IN BED, COUGHING AND GAGGING ON ET TUBE, DE-SATURATING TO 86-88%. MEDICATED WITH 50MCG FENTANYL. PT SETTLES SOMEWHAT. WILL CONTINUE TO MONITOR.
--- NOTE | 2019-06-24 18:05 | NUR ---
SHIFT SUMMARY PT CONTINUES INTUBATED AND SEDATED. PT DE-SATURATES WITH ANY REPOSITIONING TO MID TO UPPER 80'S. FIO2 INCREASED TO 60% ON VENTILATOR. TUBE FEEDING BOTTLE AND TUBING CHANGED. RESIDUAL CHECK 50ML, RE-FED. PROPOFOL CONTINUES AT 40 MCG/KG, LEVOPHED AT 2MCG/MIN AND LR AT 100ML/HR. PT CONTINUES RESTRAINED TO PROTECT LINES, TUBES. PT'S AND SON AT BEDSIDE, UPDATED ON PT CONDITION. WILL CONTINUE TO MONITOR PT AND GIVE HANDOFF REPORT TO ONCOMING RN.
--- NOTE | 2019-06-24 23:09 | NUR ---
Assumed care of pt at 1900. Family at bedside, pt resting, vented, sedated. Pt tolerating gtts. Ed expressed thanks for care, and stated he is happy his is here for care. Ed asked what time trials are done, and stated he'd be back then. States he wishes to participate in care.
[2019-06-25 03:30] LABS: BASOPHILS ABSOLUTE AUTO 0.02 K/mm3 (0.00-0.23); BASOPHILS PERCENT AUTO 0 % (0-2); EOSINOPHILS ABSOLUTE AUTO 0.54 K/mm3 (0.00-0.68); EOSINOPHILS PERCENT AUTO 10 % (0-6); Hematocrit 30.8 % (33.0-51.0); Hemoglobin 9.8 g/dL (11.5-16.0); IMMATURE GRAN ABSOLUTE AUTO 0.22 K/mm3 (0.00-0.10); IMMATURE GRAN PERCENT AUTO 4 % (0-1); LYMPHOCYTES ABSOLUTE AUTO 0.41 K/mm3 (0.84-5.20); LYMPHOCYTES PERCENT AUTO 7 % (21-46); MONOCYTES PERCENT AUTO 7 % (4-13); Mean Corpuscular HGB 29.9 pg (26.0-34.0); Mean Corpuscular HGB Conc 31.8 g/dL (31.5-36.5); Mean Corpuscular Volume 94 fL (80-100); Mean Platelet Volume 10.1 fL (9.1-12.4); NEUTROPHILS ABSOLUTE AUTO 4.06 K/mm3 (1.96-9.15); NEUTROPHILS PERCENT AUTO 72 % (41-73); RDW Coefficient Variation 16.2 % (11.7-14.2); RDW Standard Deviation 56.1 fL (35.1-46.3); Red Blood Cell Count 3.28 M/mm3 (3.80-5.20); White Blood Cell Count 5.65 K/mm3 (4.00-11.30)
[2019-06-25 03:36] LABS: Platelet Count 27 K/mm3 (150-400)
[2019-06-25 03:48] LABS: Alanine Aminotransfer (ALT/SGP 31 U/L (12-78); Albumin, Blood 1.6 g/dL (3.4-5.0); Albumin/Globulin Ratio 0.5 (0.8-1.8); Alk Phos 207 U/L (50-136); Anion Gap 5 mmol/L (6-16); Aspartate Aminotrans (AST/SGOT 33 U/L (12-37); Bilirubin, Total 1.7 mg/dL (0.1-1.0); Blood Urea Nitrogen 45 mg/dL (8-24); Bun/Creatinine Ratio 52.6 (12.0-20.0); CO2, Blood 25 mmol/L (21-32); Calcium, Blood 7.7 mg/dL (8.5-10.1); Chloride, Blood 113 mmol/L (98-108); Creatinine, Blood 0.86 mg/dL (0.40-1.00); Globulin, Blood 3.3 g/dL (2.2-4.0); Glomerular Filtration Rate >60 (60-); Glucose, Blood 153 mg/dL (70-99); Magnesium, Blood 1.6 mg/dL (1.6-2.4); Phosphorus, Blood 2.9 mg/dL (2.5-4.9); Potassium, Blood 3.4 mmol/L (3.5-5.5); Sodium, Blood 143 mmol/L (136-145); Total Protein, Blood 4.9 g/dL (6.4-8.2)
--- NOTE | 2019-06-25 05:42 | NUR ---
Pt tolerating further reduction in levophed gtt, now on standby. PEEP on vent turned back up at 10, as pt sats unable to maintain. However, lung sounds are clear to dim, no crackles. Pt restless. Pt held head up after being pulled up for chest xray. However, pt unable to follow commands.
--- NOTE | 2019-06-25 07:15 | NUR ---
REC'D BEDSIDE REPORT FROM FRANKLYN/MELVIN ARMIJO AND AM NOW ASSUMING CARE OF THIS PT.
--- NOTE | 2019-06-25 07:52 | NUR ---
DR MANCILLA IN TO ASSESS PT. DISCUSSED LOW K/IONIZED CA.
--- NOTE | 2019-06-25 09:41 | NUR ---
DR MCCABE AND THIS RN AT THE BEDSIDE TO ASSESS PT. UPDATED HIM ON PT'S STATUS. LOW ELECTOLYTE LEVELS THAT ARE CURRENTLY BEING REPLACED. PEEP DECREASED TO 5.0 AND RT TO WITHDRAW ETT 2.5. RT RAKESH INFORMED OF THIS FROM THIS RN. WILL GIVE LASIX IV, PT IS OVER 6+ LITERS, WILL RESTART LEVOPHED IF NEEDED.
--- NOTE | 2019-06-25 10:18 | NUR ---
PT REPOSITIONED AND BECOME VERY RESTLESS. INCREASED RR HIG 30-40'S, SP02 DECREASED TO 76% AT THIS TIME. RT AT THE BEDSIDE MAKING ADJUSTMENTS. SATS RETURNED TO >90% QUICKLY WITH 2 MINUTES 100% FI02 TITRATION. VENT SETTINGS: 16/400/5/50%.
--- NOTE | 2019-06-25 16:28 | NUR ---
SHIFT SUMMARY: PT IS DROWSY POST ENDOSCOPY, WHERE HE REC'D PROPOFOL 150MG IVP FOR SEDATION. PT EASILY AROUSABLE AND NO C/O AT THIS TIME. PT TO REMAIN ON PROTONIX/OCTREOTIDE GTT FOR NOW. OK TO START ON FULL LIQUID DIET ONCE AWAKE. LUNGS ARE CLEAR T/O BUT DIMINISHED IN THE BILATERAL BASES. SP02 >90% ON 2L 02 VIA N/C T/O SHIFT. HR REGULAR, SR-90'S RANGE. ABD IS LARGE/DISTENDED/TENDER IN THE RACHAEL (R/T "CHRONIC LIVER PAIN") PT ALSO C/O MODERATE/SEVERE PAIN AT TIMES R/T VENTRICAL HERNIA. PT RECENTLY HAD ENDOSCOPY DONE, WHERE SEVERAL BANDS WERE PLACED FOR BLEEDING ULCERS IN THE SMALL INTESTINE, PER DAY SURGERY STAFF. PT TO START ON CARAFATE/REGLAN. -FULL CODE STATUS -MONITOR FOR CONTINUED BLEEDING -MONITOR H+H
--- NOTE | 2019-06-25 19:05 | NUR ---
REPORT RECEIVED BEDSIDE REPORT RECEIVED FROM ALEKSANDER HOLLINGSWORTH. PT RESTING IN BED, SEDATED WITH PROPOFOL @ 40CC/HR AND LEVOPHED @ 3CC/HR, NS @ TKO; VENT SETTINGS AT SPONT PS 5/ VOL 400/PEEP 7/ FIO2 60%. VS; HR 107- ST WITH PACs PER MONITOR, RR 20 AND SAT 91%, B/P 125/51, 99.3 TEMP PER GEORGE CATH. TF INFUSING @ 20CC/HR. AT PT BEDSIDE. PT RESPONSIVE/OPENS EYES TO VOICE/PAIN/ACTIVITY. PT WITH BILAT SOFT WRIST RESTRAINTS IN PLACE, GEORGE TO DD, AND SCDs INTACT TO BLE. VOICED NO CONCERNS/QUESTIONS AT THIS TIME. WILL CONTINUE TO MONITOR PT THROUGHOUT THIS SHIFT.
--- NOTE | 2019-06-25 19:15 | NUR ---
REPORTED OFF TO ALEKSANDER DAVIS WHOM ARE NOW ASSUMING CARE OF THIS PT.
--- NOTE | 2019-06-25 19:29 | NUR ---
SHIFT SUMMARY: PT REMAINS INTUBATED AND SEDATED ON TITRATED PROPOFOL, CURRENTLY AT 50MCG/KG/MIN. PT AT TIMES WILL BE MORE ALERT AND CHEW ON ETT. PT DOES NOT OPEN EYES OR FOLLOW ANY COMMANDS. SPONTANEOUS MOVEMENT OF THE UE/LE'S BILATERALLY, BUT NO PURPOSEFUL MOVEMENT. PUPILS 4-5 AND SLUGGISH TO LIGHT. AT BEDSIDE AND UPDATED WITH PT'S STATUS AND PLAN OF CARE. LUNGS WITH MORE COARSENESS IN THE BILATERAL BASES THIS EVENING. PT REMAINS ON PS-5, TV-400, P-7, FI02-60%. PT AT TIMES WITH TACHYPNEA WITH RR >30'S. PICC IN THE LT UA WITH LEVOPHED DECREASE TO 3MCG/MIN THIS EVENING. PT DID WELL DIURESING WITH LASIX IVP. HR REGULAR, ST 100-110. ABD ROUND/SOFT/NO GRIMACE TO PALPATION. BT'S SOMEWHAT HYPOACTIVE DESPITE BEING AT GOAL RATE ON VHP 20ML/HR. RESIDUAL 50ML OR LESS THIS SHIFT. PT INCONTINENT OF LARGE SOFT BROWN BM.
[2019-06-26 05:07] LABS: BASOPHILS ABSOLUTE AUTO 0.04 K/mm3 (0.00-0.23); BASOPHILS PERCENT AUTO 1 % (0-2); EOSINOPHILS PERCENT AUTO 13 % (0-6); Hematocrit 32.4 % (33.0-51.0); IMMATURE GRAN ABSOLUTE AUTO 0.21 K/mm3 (0.00-0.10); IMMATURE GRAN PERCENT AUTO 3 % (0-1); LYMPHOCYTES ABSOLUTE AUTO 0.58 K/mm3 (0.84-5.20); LYMPHOCYTES PERCENT AUTO 8 % (21-46); MONOCYTES ABSOLUTE AUTO 0.58 K/mm3 (0.16-1.47); MONOCYTES PERCENT AUTO 8 % (4-13); Mean Corpuscular HGB 31.2 pg (26.0-34.0); Mean Corpuscular Volume 92 fL (80-100); NEUTROPHILS ABSOLUTE AUTO 4.77 K/mm3 (1.96-9.15); NEUTROPHILS PERCENT AUTO 67 % (41-73); RDW Coefficient Variation 16.3 % (11.7-14.2); RDW Standard Deviation 54.2 fL (35.1-46.3); Red Blood Cell Count 3.53 M/mm3 (3.80-5.20); White Blood Cell Count 7.08 K/mm3 (4.00-11.30)
[2019-06-26 05:12] LABS: Platelet Count 44 K/mm3 (150-400)
[2019-06-26 05:17] LABS: Anion Gap 5 mmol/L (6-16); Blood Urea Nitrogen 46 mg/dL (8-24); Bun/Creatinine Ratio 59.1 (12.0-20.0); CO2, Blood 25 mmol/L (21-32); Calcium, Blood 7.5 mg/dL (8.5-10.1); Chloride, Blood 108 mmol/L (98-108); Creatinine, Blood 0.78 mg/dL (0.40-1.00); Glomerular Filtration Rate >60 (60-); Glucose, Blood 231 mg/dL (70-99); Potassium, Blood 3.6 mmol/L (3.5-5.5); Sodium, Blood 138 mmol/L (136-145)
--- NOTE | 2019-06-26 06:30 | NUR ---
SHIFT SUMMARY PT RESTING IN BED THIS SHIFT, VENT SETTINGS CHANGED FROM PS 5/400/7/60 TO A/C 16, VOL 400, PEEP 8, FI02 50%. PT WILL AROUSE TO STIMULI BUT DOES NOT OPEN EYES OR FOLLOW COMMANDS. HEART RATE REMAINS 100s, ST WITH PACs. LUNGS CLEAR BUL AND DIMINISHED BLL, SATS 88-95% ON VENT. ET SUCTIONED SMALL AMT COLMENARES SPUTUM. B/P VARIED THIS SHIFT AND LEVOPHED TITRATED FOR EFFECT. PROPOFOL DECREASED TO 10 mcg THIS AM FOR SEDATION VACATION. BOWEL SOUNDS HYPOACTIVE, SMEAR BM, GEORGE TO DD WITH CLEAR YELLOW URINE NOTED; 1600cc OUT THIS SHIFT. SKIN AND ORAL CARE PERFORMED, SCDs IN PLACE, 2-3+ EDEMA PRESENT. BEDSIDE REPORT GIVEN TO DAY SHIFT RN, EDEL @ 0329.
--- NOTE | 2019-06-26 09:32 | NUR ---
DR CERVANTES IN TO ASSESS PT. UPDATED WITH PT STATUS. DISCUSSED PROPOFOL BEING ON STANDBY. PT IS CURRENTLY BITING ON THE ETT. EYES ARE OPEN, HOWEVER, PT DOES NOT TRACK/FOCUS ON ANYTHING AT THIS TIME. WILL D/C PROPOFOL AND START PT ON PRECEDEX GTT.
--- NOTE | 2019-06-26 17:04 | NUR ---
DR SIMMONS IN TO ASSESS PT. UPDATED HER ON PT'S CURRENT STATUS.
--- NOTE | 2019-06-26 18:09 | NUR ---
SHIFT SUMMARY: PT REMAINS SEDATED ON TITRATED PRECEDEX AND INTUBATED. PT WAS GIVEN A LONG SEDATION VACATION OFF OF PROPOFOL AND PT OPENED EYES, HOWEVER, NO TRACKING/FOCUSING/PURPOSEFUL MOVEMENT OR FOLLOWING COMMANDS SEEMS. LUNGS ARE CLEAR IN THE UPPER LOBES, WITH OCCASIONAL COARSENESS HEARD IN THE BILATERAL BASES, WHICH IS IMPROVED WITH COUGH. PT HAS WEAK COUGH/GAG REFLEX. SR WITH OCCAS/FREQUENT PAC'S. EDEMA IMPROVED ALL OVER R/T DIURESIS WITH LASIX. ABD ROUND/SOFT/NO GRIMACE TO PALPATION. BT'S ARE DISTANT/ACTIVE X4. VHP @ 30ML/HR AND PT TOLERATING WELL. DISCUSSED NEURO STATUS WITH DR CERVANTES AND AMT OF STOOLS. INCREASED LACTULOSE TO EVERY 8 HR. GEORGE CATH DRAINING CLEAR, DARK YELLOW COLORED URINE.
--- NOTE | 2019-06-26 19:00 | NUR ---
REPORT 1959 BEDSIDE REPORT RECEIVED FROM ALEKSANDER HOLLINGSWORTH. PT RESTING IN BED, SEDATED WITH PRECEDEX @ 0.5mcg/kg/min AND ON LEVOPHED @ 4/HR AND NS @ 10CC/HR, VENT SETTINGS A/C 16, VOL 400, PEEP 5, 40%FIO2. TF @ 30CC/HR PER PUMP. GEORGE TO DD. SCDs IN PLACE. PT TURNED TO RT SIDE WITH ASSIST X2, PILLOWS FOR SUPPORT, SMALL LOOSE BROWN BM, SKIN CARE DONE, HOB @ 30, BED LOW, RAILS UP X3, CALL LIGHT IN REACH, WILL CONTINUE TO MONITOR PT THIS SHIFT.
--- NOTE | 2019-06-26 19:14 | NUR ---
BEDSIDE REPORT GIVEN TO ALEKSANDER MARKS WHOM ARE NOW ASSUMING CARE OF THIS PT.
[2019-06-27 03:29] LABS: BASOPHILS ABSOLUTE AUTO 0.03 K/mm3 (0.00-0.23); BASOPHILS PERCENT AUTO 1 % (0-2); EOSINOPHILS ABSOLUTE AUTO 0.48 K/mm3 (0.00-0.68); EOSINOPHILS PERCENT AUTO 9 % (0-6); Hematocrit 33.6 % (33.0-51.0); Hemoglobin 10.9 g/dL (11.5-16.0); IMMATURE GRAN PERCENT AUTO 2 % (0-1); LYMPHOCYTES ABSOLUTE AUTO 0.67 K/mm3 (0.84-5.20); LYMPHOCYTES PERCENT AUTO 12 % (21-46); MONOCYTES ABSOLUTE AUTO 0.53 K/mm3 (0.16-1.47); MONOCYTES PERCENT AUTO 10 % (4-13); Mean Corpuscular HGB Conc 32.4 g/dL (31.5-36.5); Mean Corpuscular Volume 93 fL (80-100); Mean Platelet Volume 12.8 fL (9.1-12.4); NEUTROPHILS ABSOLUTE AUTO 3.73 K/mm3 (1.96-9.15); NEUTROPHILS PERCENT AUTO 67 % (41-73); RDW Coefficient Variation 15.9 % (11.7-14.2); RDW Standard Deviation 54.6 fL (35.1-46.3); Red Blood Cell Count 3.63 M/mm3 (3.80-5.20); White Blood Cell Count 5.54 K/mm3 (4.00-11.30)
[2019-06-27 03:34] LABS: Platelet Count 42 K/mm3 (150-400)
[2019-06-27 03:40] LABS: Anion Gap 5 mmol/L (6-16); Blood Urea Nitrogen 45 mg/dL (8-24); Bun/Creatinine Ratio 61.1 (12.0-20.0); CO2, Blood 26 mmol/L (21-32); Calcium, Blood 8.3 mg/dL (8.5-10.1); Chloride, Blood 117 mmol/L (98-108); Creatinine, Blood 0.74 mg/dL (0.40-1.00); Glomerular Filtration Rate >60 (60-); Glucose, Blood 241 mg/dL (70-99); Phosphorus, Blood 2.4 mg/dL (2.5-4.9); Potassium, Blood 3.3 mmol/L (3.5-5.5); Sodium, Blood 148 mmol/L (136-145)
--- NOTE | 2019-06-27 06:29 | NUR ---
shift summary PT REMAINS IN BED, TURN Q2HRS WITH RESTRAINT CHECKS. PT REMAINS ON VENT A/C 16/ 400/ 5/ 40% FIO2. LUNGS CLEAR TO BUL, DIM AND COARSE TO LLL, SATS 90-93%. HRR AT 70-80s, NSR WITH PACs PER MONITOR. SBP 100-130s. PT DOES NOT FOLLOW COMMANDS WHEN OFF SEDATION BUT DOES OPEN EYES, MOVE FEET. BS PRESENT X4 WITH TUBE FEED AT GOAL OF 40cc/HR. BLOOD SUGAR CHECKS Q6HRS; 204 & 210 /C 2u SS GIVEN. PICC LINE TO LT UPPER ARM WITH NS @ TKO, LEVOPHED @ 3cc/HR, AND PRECEDEX ON STANDBY. TEMP GEORGE IN PLACE WITH CLEAR HARVINDER URINE NOTED. SMALL BM AT BEGINNING OF SHIFT, SKIN CARES COMPLETED WITH TURNS & PRN. MAX TEMP OF 100.5 THIS SHIFT & FAN APPLIED, TYLENOL GIVEN. WILL CONTINUE TO MONITOR PT AND GIVE BEDSIDE REPORT WHEN NEXT SHIFT ARRIVES.
--- NOTE | 2019-06-27 07:44 | NUR ---
ASSUMED CARE: REPORT RECEIVED FROM ROB Dubon RN & ANIKA Castillo RN. ASSUMED CARE OF THIS PT AT APPROX 0700. ON ASSESSMENT, THE PT IS INTUBATED & SEDATED, RESTING QUIETLY. PRECEDEX HAS BEEN OFF SINCE APPROX 0345 PER REPORT. PT OPENS EYES SPONTANEOUSLY & MOVES BLE. NO MOVEMENT NOTED TO BUE & PT NOT FOLLOWING COMMANDS OR TRACKING W/ EYES. VENT SETTINGS: AC 16/400/5/40% W/ O2 SATS > 90% ON AVG. LS ARE COARSE ON L SIDE, DIM IN BASES. MONITOR SHOWS SR W/ HR 70s, BP STABLE W/ LEVOPHED DRIP TITRATION DOCUMENTED IN FLOWSHEET. TUBE FEED INFUSING AT GOAL RATE OF 40 ML/HR, TEMP GEORGE PATENT/ DRAINING. SKIN OVERALL FRAGILE & ECCHYMOTIC W/ BRUISING TO R HIP & SCATTERED ACCROSS ABD. WILL CONTINUE TO MONITOR & UPDATE NEEDED.
--- NOTE | 2019-06-27 10:08 | NUR ---
DR CERVANTES: PROVIDER AT BEDSIDE TO EVAL PT. STS NO PLANS TO EXTUBATE BASED ON PT's CURRENT MENTATION. UPDATED HIM THAT PT's STATED SHE TOOK "AT LEAST 2 DAYS" TO WAKE FULLY FROM SEDATION DURING HER LAST INTUBATION. PROVIDER PLACED PT ON SPONTANEOUS W/ PS 5, PT TOLERATING WELL W/ O2 SATS > 90%.
--- NOTE | 2019-06-27 18:26 | NUR ---
RECTAL TUBE: TUBE PLACED FOR CONTINUOUS LIQUID STLS.
--- NOTE | 2019-06-27 19:00 | NUR ---
REPORT BEDSIDE REPORT RECEIVED FROM ALEKSANDER THOMSON. PT ALERT AND REMAINS ON VENT WITH SETTINGS SPONT PS 5/ VOL 400/ PEEP 5/ 45% FIO2. HRR, SR WITH PACs PER MONITOR. PICC TO LT UPPER ARM WITH LEVO @ 4mcg/HR AND NS @ 10cc/HR. GEORGE AND RECTAL TUBE DRAINING TO GRAVITY. BILAT SOFT WRIST RESTRAINTS IN PLACE AND EDEMA NOTED. ET TUBE 21cm AT THE LIPS. WILL CONTINUE TO MONITOR PT THIS SHIFT.
--- NOTE | 2019-06-27 19:14 | NUR ---
SHIFT SUMMARY: NO ACUTE CHANGES SINCE PRIOR UPDATES. PT MORE ALERT THIS AFTERNOON, TRACKING INTERMITTENTLY W/ EYES. SHE CONTINUES NOT FOLLOWING COMMANDS OR MOVING BUE. LS COARSE IN LLL, PT W/ INCREASED THICK COLMENARES/PINK SPUTUM SUCTIONED THROUGH ETT, COUGHING MORE FREQUENTLY. VENT SETTINGS UNCHANGED: SPONTANEOUS W/ PS 5/5 & 40% FIO2. O2 SATS > 90% ON AVG, OCC DESATS TO 85% W/ COUGHING/SUCTIONING. MONITOR SHOWS SR W/ HR 80-90s, BP STABLE W/ LEVOPHED DRIP TITRATION IN FLOWSHEET. TUBE FEEDS INFUSING AT GOAL RATE, LOW RESIDUALS. RECTAL TUBE PLACED FOR CONTINUOUS LIQUID STLS. TEMP GEORGE PATENT/ DRAINING. THOROUGH CATH CARE COMPLETED AFTER INCONTINENT STLS. WILL CONTINUE TO MONITOR & REPORT OFF TO ONCOMING RN.
[2019-06-28 04:24] LABS: BASOPHILS ABSOLUTE AUTO 0.02 K/mm3 (0.00-0.23); BASOPHILS PERCENT AUTO 0 % (0-2); EOSINOPHILS ABSOLUTE AUTO 0.45 K/mm3 (0.00-0.68); EOSINOPHILS PERCENT AUTO 8 % (0-6); Hematocrit 31.3 % (33.0-51.0); Hemoglobin 9.9 g/dL (11.5-16.0); IMMATURE GRAN ABSOLUTE AUTO 0.08 K/mm3 (0.00-0.10); IMMATURE GRAN PERCENT AUTO 1 % (0-1); LYMPHOCYTES PERCENT AUTO 10 % (21-46); MONOCYTES ABSOLUTE AUTO 0.66 K/mm3 (0.16-1.47); MONOCYTES PERCENT AUTO 11 % (4-13); Mean Corpuscular HGB 29.6 pg (26.0-34.0); Mean Corpuscular HGB Conc 31.6 g/dL (31.5-36.5); Mean Corpuscular Volume 94 fL (80-100); NEUTROPHILS PERCENT AUTO 69 % (41-73); RDW Coefficient Variation 16.1 % (11.7-14.2); RDW Standard Deviation 54.8 fL (35.1-46.3); Red Blood Cell Count 3.34 M/mm3 (3.80-5.20); White Blood Cell Count 5.91 K/mm3 (4.00-11.30)
[2019-06-28 04:29] LABS: Platelet Count 38 K/mm3 (150-400)
[2019-06-28 04:37] LABS: Anion Gap 2 mmol/L (6-16); Blood Urea Nitrogen 43 mg/dL (8-24); Bun/Creatinine Ratio 67.9 (12.0-20.0); CO2, Blood 29 mmol/L (21-32); Chloride, Blood 120 mmol/L (98-108); Creatinine, Blood 0.63 mg/dL (0.40-1.00); Glomerular Filtration Rate >60 (60-); Glucose, Blood 205 mg/dL (70-99); Potassium, Blood 3.2 mmol/L (3.5-5.5); Sodium, Blood 151 mmol/L (136-145)
--- NOTE | 2019-06-28 05:50 | NUR ---
SHIFT SUMMARY PT CONTINUES TO REST IN BED, REMAINS ALERT, TRACKS BUT DOES NOT FOLLOW COMMANDS. SHAKES HEAD Y/N BUT NOT CONSISTANT WITH ANSWERS. VENT REMAINS ON SPONT WITH PRESSURE SUPPORT 5, VOL 400, PEEP 5, FI02 45% AND SATS >90%. PT IS NOT SEDATED AND HAS BEEN WEANED OFF OF LEVOPHED, NS REMAINS AT TKO VIA LT PICC LINE. HEART RATE IR, SR /C PACs, RATE 100s. LUNGS COARSE TO RUL, CLEAR TO [place], DIMINISHED IN BASES, RATE 20s. BOWEL SOUNDS PRESENT; GEORGE TO DD AND RECTAL TUBE IN PLACE R/T LOOSE STOOLS. SKIN WITH IMPROVING BRUISES TO RT HIP AND ABDOMEN WITH SCATTERED SCABS AND BRUISES OVER BODY. FREQ. ORAL CARE, SKIN CARE, AND TURNS COMPLETED. FENTANYL GIVEN ONCE THIS SHIFT FOR RESTLESSNESS. FAMILY ATTENTATIVE TO PT. WILL CONTINUE TO MONITOR PT REST OF THIS SHIFT.
--- NOTE | 2019-06-28 08:10 | NUR ---
ASSUMED CARE: REPORT RECEIVED FROM ALEXY Dubon RN. ASSUMED CARE OF THIS PT AT APPROX 0700. ON ASSESSMENT, THE PT IS AWAKE & INTUBATED. SHE IS CALM & COOPERATIVE, ANSWERING YES/NO QUESTIONS W/ HEAD NODS. NO MOVEMENT NOTED TO BUE, MOVING BLE SPONTANEOUSLY & TRACKING W/ EYES. LS ARE COARSE IN RUL, DIM IN BASES. O2 SATS > 90% ON AVG W/ VENT SETTINGS: SPONTANEOUS W/ PS 5/5 & 50% FIO2. MONITOR SHOWS ST W/ HR 90-110s, BP STABLE, LEVOPHED OFF SINCE 0215 PER REPORT. TF INFUSING AT GOAL RATE OF 40M ML/HR, RECTAL TUBE PATENT/ DRAINING BROWN LIQUID STL. TEMP GEORGE PATENT/ DRAINING DARK YELLOW URINE. SKIN OVERALL CDI. WILL CONTINUE TO MONITOT & UPDATE NEEDED.
--- NOTE | 2019-06-28 13:38 | NUR ---
Initial Pal Care Clinical visit: Staff referral for Pal Care received from [facility]. Pt is currently ventilated and has been for over a weeek. 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 She is 64 and has a hx of COPD, DM, CKD, hep C cirrhosis. She does not smoke or drink per H&P. She is and raising grandchildren with her . No family present during my visit. Pt is alert and able to nod or shake head in response to questions. I introduced myself to Antonina. She does not have any sedation at this time per RN. She appears alert, I cannot determine orientation but I have no indication that she is confused. She appears calm with no nonverbal indicators of distress noted. When asked if she is feeling any pain or distress she shakes her head no. When asked if she is feeling anxious, she shakes her head no. I asked if I could return tomorrow and visit further and she nodded yes. Her hands are edematous. Case conferenced with pt's RN after my visit. Plan for PC to visit daily to build rapport and discuss goals of care, advanced care planning and pt's goals when she is extubated and able to participate more.
--- NOTE | 2019-06-28 13:39 | NUR ---
FREE WATER FLUSH: FREE WATER FLUSH THROUGH TUBE FEEDING INCREASED BY 50 ML FOR A TOTAL OF 300ML Q6H.
--- NOTE | 2019-06-28 16:00 | NUR ---
DR CARDENAS: PROVIDER AT BEDSIDE TO EVAL PT. SHE IS AWAKE & NODDING YES/NO TO QUESTIONS ASKED OF HER. DR CARDENAS FEELS IT BEST, BASED ON HIGH FIO2 REQUIREMENTS & CONTINUED AMNTS THICK SECRETIONS, TO KEEP THE PT INTUBATED ONE MORE NIGHT. SHE IS OKAY TO REMAIN ON SPONTANEOUS IF TOLERATING WELL. PLAN IS FOR EXTUBATION IN AM IF IMPROVEMENTS TO MENTATION CONTINUE.
--- NOTE | 2019-06-28 16:39 | NUR ---
Antonina was awake at time of visit. She is vented, but tried to communicate. I provided prayer and calm assurance. No family present. Gave Antonina assurance of excellent care/attention. I will remain available to Antonina and her family.
--- NOTE | 2019-06-28 17:52 | NUR ---
SHIFT SUMMARY: NO ACUTE CHANGES SINCE PRIOR UPDATES. PT CONTINUES NOT MOVING BUE, BUT IS MORE ALERT THAN THIS AM. LS ARE CLEAR T/O, SLIGHT COARSENESS TO RUL. O2 SATS > 92% ON AVG W/ OCC DESATS TO 86% W/ SUCTIONING. VENT SETTINGS: SPONTANEOUS W/ PS 5/5 & 40% FIO2. MONITOR SHOWS SR-ST W/ FREQUENT PAC's, HR 90-100s. TF INFUSING AT GOAL RATE W/ LOW RESIDUALS, RECTAL TUBE DRAINING BROWN LIQUID STLS. TEMP GEORGE PATENT/ DRAINING. SKIN OVERALL CDI. WILL CONTINUE TO MONITOR & REPORT OFF TO ONCOMING RN.
--- NOTE | 2019-06-28 19:15 | NUR ---
REPORT BEDSIDE REPORT RECEIVED FROM ALEKSANDER THOMSON. PT RESTING IN BED, ALERT, ABLE TO SHAKE HEAD TO Y/N QUESTIONS. DENIES PAIN/DISCOMFORT AT THIS TIME. PT WITH VENT SETTINGS AT SPONT PRESSURE SUPPORT 5, VOL 400, PEEP 5, FIO2 45%. VS STABLE, TF @ GOAL AT 40ML/HR WITH FLUSH FREE WATER INCREASED TO 300ML Q6HRS. PT DOES NOT MOVE UE BUT MOVES SHOULDERS, LE, AND HEAD. SPUTUM REMAINS THICK WHITE. GEORGE AND RECTAL TUBE IN PLACE. PICC LINE TO LT UPPER ARM WITH ONLY NS INFUSING AT 10cc/HR. WILL CONTINUE TO MONITOR PT THIS SHIFT.
[2019-06-29 04:35] LABS: BASOPHILS ABSOLUTE AUTO 0.03 K/mm3 (0.00-0.23); BASOPHILS PERCENT AUTO 0 % (0-2); EOSINOPHILS ABSOLUTE AUTO 0.38 K/mm3 (0.00-0.68); EOSINOPHILS PERCENT AUTO 5 % (0-6); Hematocrit 31.1 % (33.0-51.0); Hemoglobin 9.9 g/dL (11.5-16.0); IMMATURE GRAN ABSOLUTE AUTO 0.11 K/mm3 (0.00-0.10); IMMATURE GRAN PERCENT AUTO 2 % (0-1); LYMPHOCYTES ABSOLUTE AUTO 0.76 K/mm3 (0.84-5.20); LYMPHOCYTES PERCENT AUTO 10 % (21-46); MONOCYTES ABSOLUTE AUTO 0.66 K/mm3 (0.16-1.47); MONOCYTES PERCENT AUTO 9 % (4-13); Mean Corpuscular HGB Conc 31.8 g/dL (31.5-36.5); Mean Corpuscular Volume 94 fL (80-100); Mean Platelet Volume 12.5 fL (9.1-12.4); NEUTROPHILS ABSOLUTE AUTO 5.48 K/mm3 (1.96-9.15); NEUTROPHILS PERCENT AUTO 74 % (41-73); RDW Coefficient Variation 15.9 % (11.7-14.2); RDW Standard Deviation 54.7 fL (35.1-46.3); White Blood Cell Count 7.42 K/mm3 (4.00-11.30)
[2019-06-29 04:41] LABS: Platelet Count 49 K/mm3 (150-400)
[2019-06-29 04:50] LABS: Albumin, Blood 1.8 g/dL (3.4-5.0); Anion Gap 6 mmol/L (6-16); Blood Urea Nitrogen 41 mg/dL (8-24); Bun/Creatinine Ratio 66.8 (12.0-20.0); CO2, Blood 27 mmol/L (21-32); Calcium, Blood 8.1 mg/dL (8.5-10.1); Chloride, Blood 123 mmol/L (98-108); Creatinine, Blood 0.61 mg/dL (0.40-1.00); Glomerular Filtration Rate >60 (60-); Glucose, Blood 196 mg/dL (70-99); Phosphorus, Blood 1.6 mg/dL (2.5-4.9); Potassium, Blood 3.2 mmol/L (3.5-5.5); Sodium, Blood 156 mmol/L (136-145)
--- NOTE | 2019-06-29 05:48 | NUR ---
SHIFT SUMMARY PT RESTING IN BED THIS SHIFT, VENT ON SPONT PS 5, VOL 400, PEEP 5, FIO2 FROM 45% TO 35% TONIGHT WITH SATS >90%. SMALL AMT THICK SPUTUM SUCTIONED DURING THE NIGHT. LUNGS CLEAR EXCEPT COARSE IN RT UPPER LOBE. [id number], SR /C PACs. BS PRESENT, TF @ GOAL OF 40CC/HR WITH 300ML FREE WATER Q6 HRS. SKIN CONTINUES TO HEAL AND EDEMA REMAINS. GEORGE AND FLEXISEAL TO DD. BS JUST OVER 200 AND S/S GIVEN PER ORDER. ONLY IV THIS SHIFT IS NS INFUSING AT KVO VIA PICC IN LT ARM. WILL GIVE BEDSIDE REPORT LATER THIS AM WHEN DAY SHIFT RN ARRIVES.
--- NOTE | 2019-06-29 07:30 | NUR ---
ASSUMED CARE AT 0700. REPORT FROM DAR ARMIJO. PT INTUBATED, VENT SETTINGS SPONT PS5/5/35%. NOT CURRENTLY SEDATED. PT OPENS EYES ON COMMANDS. ABLE TO MOVE FEET ON COMMAND. NO MOVEMENT TO UPPER EXTREMITIES. TRACKS STAFF IN ROOM FOR SHORT PERIODS OF TIME, APPEARS TO FALL ASLEEP s STIMULATION. INTERMITTANTLY CHEWING ON ETT. LUNGS DIMISHED IN RLL. PT c COUGH, GAG AND SWALLOW. SMALL AMOUNT OF THIS WHITE SECRETIONS THROUGH ETT. SINUS ARRTHYMIA c PACS. VSS. TUBE FEEDS AT GOAL, 40 ML/HR c 300 ML q 6 HR FLUSHES. RESIDUAL 10 ML THIS AM. ABD ROUND, SOFT, NON TENDER. BT HYPOACTIVE. EXTREMITIES EDEMATOUS, ELEVATED ON PILLOWS. GEORGE PATENT AND DRAINING CLEAR HARVINDER URINE TO GRAVITY. RECTAL TUBE IN PLACE, BAG CHANGED ON NOC SHIFT. NO STOOL IN BAG AT THIS TIME. PICC TO LIZABETH DC. PLAN FOR POSSIBLE EXTUBATION TODAY. WILL CONTINUE TO MONITOR.
--- NOTE | 2019-06-29 09:45 | NUR ---
DR CARDENAS IN TO SEE PT THIS AM. PLAN FOR EXTUBATION. RT AT BEDSIDE. PT c COUGH, GAG AND SWALLOW. FOLLOWS COMMANDS, CALM AND COOPERATIVE. EXTUBATED AT 0926. PLACED ON 4L O2 VIA NC. WEAK COUGH. NEEDS COACHING. MANAGING SECRETIONS. WILL CONTINUE TO ENCOURAGE COUGH AND DEEP BREATHING.
--- NOTE | 2019-06-29 11:25 | NUR ---
Palliative care visit: Pt was extubated this am. She is sleeping with O2 mask appliance on. She did not wake to voice or light touch. Pt does not demonstrate any nonverbal s/s of pain or distress, except dyspnea. Reviewed EMR & case conferenced with RN. She reports pt has been nonverbal since extubation. She has not had sedation for several days now. She follows commands and makes eye contact but has not spoken. Pt moving upper arms shoulders but is not using hands yet. RN unsure what pt's baseline mentation and cognition is. Asked that she speak to our weaver wire loom who knows this pt well. Pt's is planning to come in to visit this afternoon and give us more information. ST, OT, PT ordered. Case conferenced with and updated Medicine Tech Aleta on current status as above also.
--- NOTE | 2019-06-29 17:02 | NUR ---
SHIFT SUMMARY PT EXTUBATED THIS SHIFT. TOLERATED WELL. CURRENTLY ON 4L O2 VIA NC, SATS >92%. LUNGS DIMINISHED IN BASES. STRENGTH OF COUGH HAS IMPROVED THIS SHIFT, WET, NON PRODUCTIVE. PT MANAGING SECRETIONS. WEAK VOICE, MOUTHING WORDS c LITTLE SOUND. FOLLOWS SIMPLE COMMANDS. A&OX 2. DENIES PAIN OR COMPLAINTS. RECOGNIZES FAMILY. EXTREMITIES CONTINUE TO BE EDEMATOUS. IVF CHANGED TO D5 AT 75ML/HR, WILL START AFTER KPHOS IN D50 AT 102 ML/HR IS COMPLETE. WILL RECHECK BMP AT 1930 TO MONITOR NA+. PT NOT ELIGIBLE FOR BEDSIDE SWALLOW D/T WEAK VOICE. SPEECH THERAPY ORDERED FOR AM. PT/OT EVAL TODAY. PT PARTICIPATED IN THERAPY. CONTINUED TO NOT MOVE UPPER EXTREMITIES. GEORGE REMAINS IN PLACE, PATENT, DRAINING TO GRAVITY. RECTAL TUBE DRAINING TO GRAVITY. REPORT TO ONCOMING NURSE.
--- NOTE | 2019-06-29 17:22 | NUR ---
Initial spiritual care note: Antonina had been recently extubated and could not speak. She appeared mentally altered, but recognized me and smiled. Nodded head "yes" to prayer. Held her hand and provided encouragement/assurance of care. She responds well to my interventions. Spouse, Ed, arrived. I will remain available.
--- NOTE | 2019-06-29 19:14 | NUR ---
REPORT BEDSIDE REPORT RECEIVED FROM ALEKSANDER MARIA. PT RESTING IN BED, ALERT, NODS HEAD Y/N AND WHISPERS A FEW WORDS. RN REPORTS PT HAS WEAK COUGH, WEAK WHISPER BUT HAS IMPROVED SINCE EXTUBATED. SHE REPORTS BS OKAY, PICC LINE, RECTAL TUBE, AND GEORGE REMAIN IN PLACE, CONTINUED EDEMA AND BRUISES TO SKIN. RN REPORTS PT DID COOPERATE WITH PT/OT TODAY AND HAS SPEECH EVAL TOMORROW AM PT IS ASKING FOR FOOD. PT HAS NS @ 10cc/HR AND D5 @ 75cc/HR INFUSING VIA PICC LINE AND BMP ORDERED FOR 1930. VS OBTAINED AT THIS TIME. WILL CONTINUE TO MONITOR PT.
[2019-06-29 20:19] LABS: Anion Gap 1 mmol/L (6-16); Blood Urea Nitrogen 35 mg/dL (8-24); CO2, Blood 27 mmol/L (21-32); Calcium, Blood 8.2 mg/dL (8.5-10.1); Chloride, Blood 126 mmol/L (98-108); Creatinine, Blood 0.63 mg/dL (0.40-1.00); Glomerular Filtration Rate >60 (60-); Glucose, Blood 228 mg/dL (70-99); Potassium, Blood 3.3 mmol/L (3.5-5.5); Sodium, Blood 154 mmol/L (136-145)
[2019-06-30 03:45] LABS: BASOPHILS ABSOLUTE AUTO 0.03 K/mm3 (0.00-0.23); BASOPHILS PERCENT AUTO 0 % (0-2); EOSINOPHILS ABSOLUTE AUTO 0.41 K/mm3 (0.00-0.68); EOSINOPHILS PERCENT AUTO 5 % (0-6); Hematocrit 31.2 % (33.0-51.0); Hemoglobin 9.7 g/dL (11.5-16.0); IMMATURE GRAN PERCENT AUTO 1 % (0-1); LYMPHOCYTES ABSOLUTE AUTO 0.68 K/mm3 (0.84-5.20); LYMPHOCYTES PERCENT AUTO 8 % (21-46); MONOCYTES ABSOLUTE AUTO 0.66 K/mm3 (0.16-1.47); MONOCYTES PERCENT AUTO 8 % (4-13); Mean Corpuscular HGB 29.8 pg (26.0-34.0); Mean Corpuscular HGB Conc 31.1 g/dL (31.5-36.5); Mean Corpuscular Volume 96 fL (80-100); Mean Platelet Volume 10.6 fL (9.1-12.4); NEUTROPHILS ABSOLUTE AUTO 6.91 K/mm3 (1.96-9.15); NEUTROPHILS PERCENT AUTO 79 % (41-73); Platelet Count 59 K/mm3 (150-400); RDW Coefficient Variation 16.1 % (11.7-14.2); RDW Standard Deviation 55.4 fL (35.1-46.3); Red Blood Cell Count 3.26 M/mm3 (3.80-5.20); White Blood Cell Count 8.79 K/mm3 (4.00-11.30)
[2019-06-30 03:57] LABS: Albumin, Blood 1.8 g/dL (3.4-5.0); Anion Gap 5 mmol/L (6-16); Blood Urea Nitrogen 28 mg/dL (8-24); Bun/Creatinine Ratio 51.4 (12.0-20.0); CO2, Blood 27 mmol/L (21-32); Calcium, Blood 8.1 mg/dL (8.5-10.1); Chloride, Blood 127 mmol/L (98-108); Creatinine, Blood 0.55 mg/dL (0.40-1.00); Glomerular Filtration Rate >60 (60-); Glucose, Blood 177 mg/dL (70-99); Phosphorus, Blood 1.9 mg/dL (2.5-4.9); Sodium, Blood 159 mmol/L (136-145)
--- NOTE | 2019-06-30 06:05 | NUR ---
SHIFT SUMMARY PT RESTING IN BED THIS SHIFT, ALERT, NODS/WHISPERS ANSWERS TO QUESTIONS/NEEDS. PT HEART RATE 100-110s, IRREGULAR WITH PACs. LUNGS COARSE/WHEEZE TO RUL, CLEAR TO OTHER LOBES. PT DESATS AT TIMES AND ENCOURAGED TO DEEP BREATHE THROUGH NOSE, OXYGEN INCREASED FROM 3L/NC TO 5L/NC. BOWEL SOUNDS PRESENT, GEORGE AND FLEXISEAL TO DD. PT REMAINS NPO WITH NS @ 10CC/HR AND D5 @ 75CC/HR VIA PICC TO LT UPPER ARM. PT BRUISES TO ABD AND RT HIP HEALING. BS CHECKS Q6HRS, NO S/S GIVEN BUT HS LANTUS GIVEN. WILL GIVE BEDSIDE REPORT LATER THIS AM WHEN DAY SHIFT RN ARRIVES. WILL CONTINUE TO MONITOR PT THIS SHIFT.
--- NOTE | 2019-06-30 07:58 | NUR ---
ASSUMED CARE RECEIVED REPORT FROM ALEKSANDER TRACEY. PT IS ALERT, SHE IS FOLLOWING BASIC COMMANDS, BUT IS SLOW TO RESPOND. SHE HAS MINIMAL GROSS MOVEMENT, VERY WEAK. APHONIC, SHE CAN ONLY WHISPER. SHE HAS A PICC LINE, SITE IS WN. SHE HAS D5W AT 75ML/HR. SHE HAS BILATERAL SCDs. SHE IS GETTING 4L NC, AND SAT'ING LOW 90's. SHE APPEARS TO BE IN A SINUS ARRHYTHMIA WITH PACs. BED IS LOW AND LOCKED.
--- NOTE | 2019-06-30 10:07 | NUR ---
UPDATE PT HAD BARIUM SWALLOW TEST THIS MORNING, SHE LEFT FOR IMAGING AT 0852 AND WAS BACK IN THE ICU 0915. PER SPEACH THERAPY SHE DID NOT PASS, AND IS SILENTLY ASPIRATING. I WILL TALK TO DR. CARDENAS ABOUT WHETHER WE WANNA DO DOBHOF VS G-TUBE. PT NEEDS LACTULOSE AND NUTRITION. CURRENTLY PT IS HAVING SATs 84-88% WHEN SHE HAS BEEN AROUND 92% ON 5L NC. TRIED SITTING HER UP MORE UPRIGHT, DEEP BREATHING AND COUGHING. REMAINS IN THE MID 80s, PAGED RT. RT IS GETTING HER HOOKED UP TO A HIGH FLOW, WITH HUMIDITY NC.
--- NOTE | 2019-06-30 11:00 | NUR ---
Spoke with Dr Wood prior to Pt visit. Dr Wood reports Pt had barrium swallow study this AM. Results suggest Pt experiences severe chronic silent aspiration. Pt sitting in recliner chair upon arrival. Accompanied by nursing faculty Rica. Pt's level of understanding is impaired at this time as evidenced by how Pt answers this RN's questions. Asked Pt if there is a television in the room Pt responds by turn her head from side to side indicating no and verbalizing no. Asked Pt if this RN was wearing a watch and Pt responds yes without looking to see if this RN was wearing a watch. Pt also responds incorrectly with color of shirt this RN is wearing. Spoke with bedside RN Anya and discussed case. Attempted to call Pt's spouse Jose. Voicmail box is full and unable to leave message. Palliative Care will F/U when is visiting.
--- NOTE | 2019-06-30 12:57 | NUR ---
UPDATE PT IS DOING 5-6L HIGH FLOW NC AND WAS CONTINUING TO SAT MID 80'S TO 90%. BUT AFTER MOVING IT INTO HER MOUTH SHE WAS SAT'ING IN THE 90'S ON 4-6L THE HIGH FLOW NC WITH HUMIDITY. PT APPEARS TO BE COMFORTABLE AND IN NO RESPIRATORY DISTRESS OR PAIN. PT IS STILL APHONIC, AND SLOW TO RESPOND.
--- NOTE | 2019-06-30 15:17 | NUR ---
UPDATE INSERTED DOBHOF TO 46CM SAMUEL, RADIOLOGIST TOLD ME TO ADVANCE IT 10CM, AND IT WOULD BE GOOD. CURRENTLY AT 56CM. MUD CLEANER OPERATOR AWARE, AND HAS PUT IN ORDERS FOR TUBE FEEDING AND FLUSHES. PT TOLERATED IT POORLY, TRYING TO FIGHT ME, AND HAS A NOSE BLEED. I HAD TO PUT HER IN BILATERAL SWB RESTRAINTS TO PREVENT HER FROM PULLING IT OUT. SHE IS BACK IN BED. BED IS LOW AND LOCKED.
--- NOTE | 2019-06-30 17:48 | NUR ---
Pt visit this evening. Pt appears dyspneic, anxious, and confused. Pt's Edbrenda at bedside. Engaged in therapeutic discussion regarding plan of care and results of barrium swallow study. Discussed the possibility of needing to revisit goals of care in the near future and options for plan of care. Discussed if Pt's respiratory status declines if Pt would want to be re-intubated and the risk factors of being re-intubate. Discussed the possibility of G-tube and if Pt would be a candidate for G-tube. Mike V/U and states "I have a lot to think about". Encouraged Jose to continue routine conversations with Intensavist and Hospitalist for updates and recommendations. No other concerns reported at this time. Spoke with bedside ALEKSANDER Gregory and discussed case. Spoke with Dr Wood and discussed case. Palliative Care will remain available.
--- NOTE | 2019-06-30 18:40 | NUR ---
Routine spiritual care note: Antonina was alone in room when I visited. She is awake, but not lucid. She did not respond to me at all. Prayer provided and comfort through touch. I will remain available.
--- NOTE | 2019-06-30 19:00 | NUR ---
SHIFT SUMMARY PT HAS HAD NO ACUTE EVENTS TODAY, ASIDE FOR A PERIOD OF O2 SATS IN THE 80'S, BUT WITH NO APPARENT RESPIRATORY DISTRESS. SHE HAD A BUSY MORNING, AND DAY - AND WITH A LITTLE BIT OF FENTANYL, SHE HAS BEEN SLEEPING THE LAST FEW HOURS. WHEN AWAKE SHE IS ALERT, BUT IM UNSURE OF HOW ORIENTED SHE IS - BECAUSE SHE NODS YES/NO, FOLLOWS BASIC COMMANDS, BUT SHE NODS TO THINGS THAT DON'T SENSE. LIKE "AM I WEARING A WATCH?" SHE NODS YES, AND I AM NOT WEARING A WATCH. SHE WAS UPGRADED TO A HIGH FLOW, HIGH HUMIDITY NC TODAY ~5LPM TODAY DUE TO HER SATs MAINTAINING 84-88%, SHE WAS A MOUTH BREATHER SO THE HHNC IS PLACED IN THE MOUTH AND SHES BEEN IN THE 90'S. GOAL IS TO STAY ABOVE 88% (COPD PT). SHE IS IN A SINUS RHYTHM WITH MANY PACs AND SOME PVCs. HER SWELLING IS IMPMROVING, EXTREMETIES HAVE BEEN ELEVATED ALL DAY. SHE SPENT THE FIRST HALF OF THE DAY IN THE CHAIR, AND HAS BEEN USING THE FLUTTER VALVE WITH ASSISTANCE. SHE HAS BEEN COUGHING AND DEEP BREATHING THROUGHOUT THE DAY. SHE HAS BILATERAL SCD'S. SHE HAS BILATERAL SWB RESTRAINTS DUE TO PULLING AT HER DOBHOF, WHICH WAS PLACED TODAY FOR LACTULOSE, AND GLUCERNA 1.2 TF (CONFIRMED WITH CHEST XRAY). GOAL RATE WILL EVENTUALLY BE 50ML/HR, BUT PER DR CARDENAS WILL REMAIN AT 10-15ML/HR WHILE D5W IS INFUSING AT 125ML/HR. PICC LINE SITE IS WNL, AND ALL PORTS INFUSE/FLUSH WELL. SHE RECIEVED ONE DOSE OF LACTULOSE AND BEEN MAKING LIQUID BROWN STOOL FILLING IN HER RECTAL TUBE. GEORGE IS PATENT AND FILLING WITH PLENTY OF ORANGE/TEA COLORED URINE. KPHOS HAS REPLACED LOW K AND PHOS, AND D5W WAS INCREASED TO 125ML/HR TO DILUTE HIGH SODIUM. CAME TO VISIT PT TODAY AND HAS BEEN UPDATED, AND HAS TALKED TO PALLIATIVE CARE.
--- NOTE | 2019-06-30 19:59 | NUR ---
ASSUME CARE RECEIVED REPORT FROM ALEKSANDER DODSON. PATIENT IN BED, VSS. SATS ABOVE 95% ON 5L HIFLO.LUNGS DIMINISHED THROUGHOUT. TKA AND KPHOS INFUSING THROUGH PICC LINE. PATIENT ABLE TO FOLLOW SIMPLE COMMANDS. FLEXISEAL IN PLACE AND DRAINING LIGHT BROWN LIQUID STOOL. GEORGE IN PLACE PATENT AND FLOWING TO GRAVITY WITH DARK TEA COLORED URINE. PATIENT IS SLIGHTLY DISTENDED. PULSES STRONG THROUGHOUT. TUBE FEEDS GOING AT 10ML/HR. D5 1/2NS AT 125ML/HR. WILL CONTINUE TO MONITOR.
[2019-07-01 03:51] LABS: BASOPHILS ABSOLUTE AUTO 0.05 K/mm3 (0.00-0.23); BASOPHILS PERCENT AUTO 1 % (0-2); EOSINOPHILS ABSOLUTE AUTO 0.45 K/mm3 (0.00-0.68); EOSINOPHILS PERCENT AUTO 4 % (0-6); Hematocrit 31.8 % (33.0-51.0); IMMATURE GRAN ABSOLUTE AUTO 0.07 K/mm3 (0.00-0.10); IMMATURE GRAN PERCENT AUTO 1 % (0-1); LYMPHOCYTES ABSOLUTE AUTO 0.62 K/mm3 (0.84-5.20); LYMPHOCYTES PERCENT AUTO 6 % (21-46); MONOCYTES ABSOLUTE AUTO 0.69 K/mm3 (0.16-1.47); MONOCYTES PERCENT AUTO 7 % (4-13); Mean Corpuscular HGB 30.6 pg (26.0-34.0); Mean Corpuscular HGB Conc 31.4 g/dL (31.5-36.5); Mean Corpuscular Volume 97 fL (80-100); Mean Platelet Volume 10.9 fL (9.1-12.4); NEUTROPHILS ABSOLUTE AUTO 8.24 K/mm3 (1.96-9.15); NEUTROPHILS PERCENT AUTO 82 % (41-73); Platelet Count 78 K/mm3 (150-400); RDW Coefficient Variation 16.1 % (11.7-14.2); RDW Standard Deviation 56.5 fL (35.1-46.3); Red Blood Cell Count 3.27 M/mm3 (3.80-5.20); White Blood Cell Count 10.12 K/mm3 (4.00-11.30)
[2019-07-01 04:07] LABS: Alanine Aminotransfer (ALT/SGP 104 U/L (12-78); Albumin, Blood 1.9 g/dL (3.4-5.0); Albumin/Globulin Ratio 0.5 (0.8-1.8); Alk Phos 367 U/L (50-136); Anion Gap 4 mmol/L (6-16); Aspartate Aminotrans (AST/SGOT 163 U/L (12-37); Bilirubin, Total 2.5 mg/dL (0.1-1.0); Blood Urea Nitrogen 17 mg/dL (8-24); Bun/Creatinine Ratio 32.1 (12.0-20.0); CO2, Blood 26 mmol/L (21-32); Calcium, Blood 7.7 mg/dL (8.5-10.1); Chloride, Blood 122 mmol/L (98-108); Creatinine, Blood 0.53 mg/dL (0.40-1.00); Globulin, Blood 3.7 g/dL (2.2-4.0); Glomerular Filtration Rate >60 (60-); Glucose, Blood 201 mg/dL (70-99); Magnesium, Blood 1.8 mg/dL (1.6-2.4); Phosphorus, Blood 2.7 mg/dL (2.5-4.9); Potassium, Blood 3.2 mmol/L (3.5-5.5); Sodium, Blood 152 mmol/L (136-145); Total Protein, Blood 5.6 g/dL (6.4-8.2)
--- NOTE | 2019-07-01 06:14 | NUR ---
SHIFT SUMMARY PT CONTINUES TO FOLLOW COMMANDS INTERMITTENTLY; A BIT DIFFICULT TO TELL SINCE SHE IS WEAK. WHEEZING WITH EVERY BREATH, ON 4L NC WITH SATS ABOVE 92%. AFEBRILE. VSS. 20MEQ KCL REPLACED. PT CONTINUES TO HAVE LIQUID LIGHT BROWN STOOL FROM RECTAL TUBE. NO ACUTE ISSUES OVERNIGHT.
--- NOTE | 2019-07-01 07:27 | NUR ---
ASSUMED CARE PT IS LYING IN BED ASLEEP. SHE HAS A PICC LINE, SITE IS WNL - D5W @ 125ML/HR. SHE IS ON 5L HIGH FLOW NC. SHE HAS BILATERAL SCD'S ON, AND IS IN BILATERAL SWB RESTRAINTS. SHE IS IN SINUS RHYTHM, WITH STABLE VITALS. HER RR IS HIGH 20'S. BED LOW AND LOCKED. CALL LIGHT WITHIN REACH.
[2019-07-01 10:25] LABS: PCO2 Arterial 38.2 mmHg (35-45); PO2 Arterial 77.8 mmHg (80-100)
--- NOTE | 2019-07-01 12:00 | NUR ---
UPDATE/INTUBATION THIS MORNING I TOOK CARE OF PT WHO WAS DOING POOR NEUROLOGICALLY AND RESPIRATORY ACUÑA. SHE HAD WORSENED SINCE YESTERDAY WHEN I HAD HER. INCREASED WORK OF BREATHING, AND DECREASED RESPONSIVENESS. HER XRAY COMPARED TO YESTERDAY WAS MUCH, MUCH WORSE. IT WAS DECIDED BY DR CARDENAS TO RE-INTUBATE, WE ATTEMPTED TO CONTACT AND SON BUT NO ANSWER MULTIPLE TIMES. SHE WAS GIVEN 4MG OF VERSED AND 40 MG OF PROPOFOL AT 0829. A 7.5 ETT WAS INSERTED AT 0830 WITH 24CM AT THE LIP. 40 MG MORE OF PROPOFOL WAS GIVEN AT 0832 AND 0833 SHE WAS STARTED ON THE GTTP AT 35MCG/KG/MIN. SHE WAS GIVEN A 500CC D5W BOLUS STARTED AT 0835. AND DUE TO A MAP OF < 60 SHE WAS STARTED ON LEVOPHED GTTP AT 5MCG/MIN. ALBUMIN HAS BEEN ORDERED (3XBOTTLES; CURRENTLY ON 07/05). LEVO HAS BEEN HIGH 10MCG/MIN, BUT HAS STEADILY BEEN TITRATED DOWN TO 6MCG/MIN CURRENTLY. PROPOFOL IS CURRENTLY AT 50MCG/KG/MIN, WITH ADEQUATE SEDATION. VENT SETTINGS ARE CURRENTLY AC 14/300/5/40%. THE DAUGHTER IN LAW PICKED UP AND CAME TO SEE PT POST INTUBATION. EVENTUALLY AND SON CAME IN. THEY ARE UPDATED ON CURRENT SITUATION. THEY ARE AWAITING RESULTS OF CT SCAN. TUBE FEEDING WAS CHANGED DUE TO BEING ON PROPOFOL, AND D5W. IT WAS CHANGED TO VITAL HIGH PROTEIN, I WILL STILL KEEP IT RUNNING AT 10ML/HR D5W IS STILL INFUSING AT 125ML/HR.
--- NOTE | 2019-07-01 18:05 | NUR ---
Routine spiritual care note: Antonina was alone in room and non-responsive. Vented. Prayer at bedside. T/C to spouse, Ed. He tells me that he would feel guilty if he "didn't try everything" to sustain Antonina's life. He appears to understand that she may be nearing end of life. He responded well to theraputic listening and gentle breastfeeding peer counselor. We have a good rapport. Lab Clerk services will remain available.
--- NOTE | 2019-07-01 18:42 | NUR ---
SHIFT SUMMARY SEE PREVIOUS NOTE FOR MAJORITY OF EVENTS THAT OCCURED TODAY. SHE IS CURRENTLY INTUBATED WITH A A 7.5 ETT, 21 @ THE LIP. VENT SETTINGS: AC 14/300/5/40%. CURRENT GTTPS: PROPOFOL 50MCG/KG/MIN, LEVOPHED 5MCG/MIN, D5W 125ML/HR, AND NS TKO. SHE IS ADEQUETLY SEDATED, WITH GOAL MAP > 60. SHE HAS VITAL HIGH PROTEIN TF INFUSING AT 10ML, WITH Q4H 30CC WATER FLUSHES VIA DOBHOF. BILATERAL SCD'S ON FOR VTE PROPHYLAXIS. VAP PROTOCOL IS IN EFFECT. ORAL CARE IS DONE Q4H, AND HER MOUTH IS VERY BLOODY AND DIRTY. SHE HAS BILATERAL SWB RESTRAINTS SECURED TO BED TO PREVENT SELF EXTUBATION. BED IS LOW AND LOCKED. FAMILY HAS BEEN UP TO SEE PT, AND HAVE BEEN UPDATED.
--- NOTE | 2019-07-01 19:08 | NUR ---
Review of pt with nurisng. Will get update tomorrow see how pt responds. will reveiw with rachelle flaherty approaching with plan
--- NOTE | 2019-07-01 19:38 | NUR ---
ASSUME CARE PT PRESENTS IN BED, APPEARS ADEQUATELY SEDATED. ON VENT AC 14/300/5/40%. 7.5 ETT, 21 YVETTE. LEVOPHED AT 5, PROPOFOL AT 50 MCG/KG/HR, NS TKO, D5 AT 125ML/HR. ZAIN SCDS, BED IN LOW POSITION, FAMILY AT BEDSIDE. VSS.
--- NOTE | 2019-07-02 02:05 | NUR ---
STATUS UPDATE PT AT 35% FIO2. DESAT TO 86%, 100% FI02 DELIVERED AND PT RECOVERED WITH SATS ABOVE 92%. RR WAGNER RAMIREZ CALLED TO BEDSIDE TO ASSESS.
--- NOTE | 2019-07-02 03:19 | NUR ---
RESPIRATORY STATUS AT 0300, NOTICED PATIENT WAS HAVING INCREASED WORK OF BREATHING, LOTS OF ACCESSORY MUSCLE USE. RT WAGNER RAMIREZ HAD INCREASED FIO2 TO 50% AFTER PT DESAT TO 86% (PREVIOUS NOTE). SUCTIONED PATIENT, SCANT SECRETIONS. LUNGS DIMINISHED, COARSE AND WHEEZY. RT WAGNER RAMIREZ CALLED AGAIN. BREATHING TREATMENT GIVEN, PT STILL INCREASED WOB AND ACCESSORY MUSCLE USE.
[2019-07-02 04:02] LABS: BASOPHILS ABSOLUTE AUTO 0.04 K/mm3 (0.00-0.23); BASOPHILS PERCENT AUTO 1 % (0-2); EOSINOPHILS ABSOLUTE AUTO 0.41 K/mm3 (0.00-0.68); EOSINOPHILS PERCENT AUTO 7 % (0-6); Hematocrit 27.4 % (33.0-51.0); Hemoglobin 8.5 g/dL (11.5-16.0); IMMATURE GRAN ABSOLUTE AUTO 0.06 K/mm3 (0.00-0.10); IMMATURE GRAN PERCENT AUTO 1 % (0-1); LYMPHOCYTES ABSOLUTE AUTO 0.67 K/mm3 (0.84-5.20); LYMPHOCYTES PERCENT AUTO 11 % (21-46); MONOCYTES ABSOLUTE AUTO 0.41 K/mm3 (0.16-1.47); MONOCYTES PERCENT AUTO 7 % (4-13); Mean Corpuscular HGB 29.4 pg (26.0-34.0); Mean Corpuscular Volume 95 fL (80-100); Mean Platelet Volume 12.4 fL (9.1-12.4); NEUTROPHILS ABSOLUTE AUTO 4.47 K/mm3 (1.96-9.15); NEUTROPHILS PERCENT AUTO 74 % (41-73); Platelet Count 66 K/mm3 (150-400); RDW Coefficient Variation 16.3 % (11.7-14.2); RDW Standard Deviation 54.1 fL (35.1-46.3); Red Blood Cell Count 2.89 M/mm3 (3.80-5.20); White Blood Cell Count 6.06 K/mm3 (4.00-11.30)
[2019-07-02 04:20] LABS: Magnesium, Blood 1.7 mg/dL (1.6-2.4)
[2019-07-02 04:22] LABS: Albumin, Blood 2.6 g/dL (3.4-5.0); Anion Gap 6 mmol/L (6-16); Blood Urea Nitrogen 17 mg/dL (8-24); Bun/Creatinine Ratio 29.6 (12.0-20.0); CO2, Blood 21 mmol/L (21-32); Calcium, Blood 7.4 mg/dL (8.5-10.1); Chloride, Blood 115 mmol/L (98-108); Creatinine, Blood 0.58 mg/dL (0.40-1.00); Glomerular Filtration Rate >60 (60-); Glucose, Blood 221 mg/dL (70-99); Phosphorus, Blood 2.2 mg/dL (2.5-4.9); Sodium, Blood 142 mmol/L (136-145)
--- NOTE | 2019-07-02 04:59 | NUR ---
STATUS UPDATE AT 0450, NOTICED BLOOD COMING FROM GEORGE CATHETER. CALLED DR. CARDENAS ABOUT ELECTROLYTES (K: 3.0; PO4: 2.2; CA+ 7.4, MAG 1.7, AND LOW ALBUMIN: 2.6), MENTIONED INCREASED WORK OF BREATHING THAT HAS NOT RESOLVED EVEN W INCREASE SEDATION, AND NOTIFIED HIM OF BLOOD FROM GEORGE. PT PLATELETS 66. ORDER FOR 40MEQ KCL GIVEN; NO OTHER ORDERS AT THIS TIME. WILL CONTINUE TO MONITOR.
--- NOTE | 2019-07-02 06:08 | NUR ---
SHIFT SUMMARY PT DESAT TO 86%, CALLED RT TO ROOM. FIO2 ADJUSTED TO 50%. WENT TO REPOSITION PATIENT AND NOTICED PT WAS HAVING INCREASE WORK OF BREATHING, ACCESSORY MUSCLE USE. RT CAME TO ASSESS. LATER IN NIGHT, NOTICED BLOOD FROM GEORGE CATHETER. DR. CARDENAS NOTIFIED, NO ORDERS GIVEN FOR DROP IN PLATELETS, H&H, AND BLEEDING FROM GEORGE CATHETER. K 3.0-- 40MEQ KCL ORDERED. FIRST BAG INFUSING NOW. PATIENT CONTINUES TO WITHDRAW FROM PAIN, BUT STILL NOT FOLLOWING COMMANDS. PATIENT ON 4 MCG/KG/HR OF NOREPI. PROPFOL AT 50 MCG/KG/HR, AND D5 INFUSING AT 125ML/HR. TUBE FEEDS RUNNING AT 10ML/HR. PT REMAINED AFEBRILE THROUGHOUT NIGHT. HR 80-90S. NO OTHER ISSUES. WILLL CONTINUE TO MONITOR.
--- NOTE | 2019-07-02 07:00 | NUR ---
ASSUMED CARE: RECEIVED BEDSIDE REPORT FROM OSBALDO RN. PT IS INTUBATED AC/14/300/5/45%. BREATHING IS NOTED TO BE LABORED AND SHE APPEARS TO BE BREATHING OVER THE VENT NOTED BY THE ALARMS ON THE VENT. ATTEMPTED TO DO INLINE SUCTION, SCANT AMOUNT OF THICK RED DRAINAGE REMOVED. WILL ASSESS FURTHER. RECTAL TUBE DRAINAGE BAG NOTED TO BE APPROX 1/2 FULL WITH LIQUID STOOL. GEORGE IS NOTED TO BE PATENT AND DRAINING DARK RED FLUID. OSBALDO RN STATES DR CARDENAS IS AWARE OF CHANGE IN URINE AND DROP IN HGB. DR CARDENAS IN WHILE REPORT IS BEING DONE, AND VERAFIED HE WAS AWARE. NO NEW ORDERS. WILL REVIEW ORDERS AND CHART FRUTHER. WILL CONTINUE TO MONITOR AND ASSESS FURTHER.
--- NOTE | 2019-07-02 07:05 | NUR ---
IVF RUNNING: KCL 20MEQ @ 10MEQ/HR (50ML/HR) LEVOPHED @ 5MCG/MIN TURNED DOWN TO 4MCG/MIN TO KEEP MAP GREATER THAN 60 D5 @ 125ML/HR PROPOFOL 50MCG/KD/MIN @ DOSING WT OF 75KG
[2019-07-02 10:05] LABS: Vancomycin, Trough 17.6 ug/mL (5.0-10.0)
--- NOTE | 2019-07-02 10:45 | NUR ---
UPDATE: CALLED BACK TO UPDATE HOW THE NIGHT WENT. STATES HE WILL BE IN AFTER WORK THIS AFTERNOON AFTER 2:30pm
[2019-07-02 15:28] LABS: Hematocrit 28.6 % (33.0-51.0)
[2019-07-02 15:55] LABS: Base Excess Venous -3.9 mmol/L; Bicarbonate Venous 21.5 mmol/L (24.0-30.0); PCO2 Venous 34.4 mmHg (38-42); PO2 Venous 80.3 mmHg (38-42); pH Blood Venous 7.39 (7.34-7.37)
--- NOTE | 2019-07-02 17:42 | NUR ---
SHIFT SUMMARY: BLOOD DRAWN SEVERAL TIMES TODAY TO CHECK DIFFERENT LAB VALUES. ONCE VENT SETTINGS WHERE CHANGED TO AC/14/350/5/45% PT RR DECREASED DOWN INTO THE 20'S AND APPEARS MUCH MORE COMFORTABLE WITH LESS RESISTANCE TO THE VENT. FAMILY UPDATED BY DR MITCHELL ON THE PLAN OF CARE AND ANSWERED THEIR QUESTIONS. FAMILY APPEARS TO BE IN SOMEWHAT UNDERSTADING OF THE PLAN AND IN AGREEANCE. WILL CONTINUE TO MONITOR AND ASSESS.
--- NOTE | 2019-07-02 19:30 | NUR ---
ASSUME CARE PT IN BED, APPEARS WELL SEDATED. VENT SETTINGS: AC 14/350/5/45%. 7.5 ETT, 20 YVETTE. TF RUNNING AT 10 ML/HR, NOREPI AT 6 MCG/HR, PROPOFOL AT 50 MCG/KG/HR, D5 INFUSING AT 75/HR. RECTAL TUBE OUT. GEORGE DRAINING TO GRAVITY.
--- NOTE | 2019-07-03 00:48 | NUR ---
PRESSURE ULCER PRESSURE ULCER NOTED ON PT'S R NARE FROM NG TUBE. REPOSITIONED TO KEEP PRESSURE OFF.
--- NOTE | 2019-07-03 02:00 | NUR ---
ASSUMING CARE OF PT. REPORT FROM JAYCEE ARMIJO. ALL GTT'S AND TUBES GONE OVER AT BEDSIDE.
[2019-07-03 04:29] LABS: BASOPHILS ABSOLUTE AUTO 0.05 K/mm3 (0.00-0.23); BASOPHILS PERCENT AUTO 1 % (0-2); EOSINOPHILS ABSOLUTE AUTO 0.78 K/mm3 (0.00-0.68); EOSINOPHILS PERCENT AUTO 10 % (0-6); Hematocrit 27.8 % (33.0-51.0); Hemoglobin 8.9 g/dL (11.5-16.0); IMMATURE GRAN ABSOLUTE AUTO 0.05 K/mm3 (0.00-0.10); IMMATURE GRAN PERCENT AUTO 1 % (0-1); LYMPHOCYTES ABSOLUTE AUTO 0.73 K/mm3 (0.84-5.20); LYMPHOCYTES PERCENT AUTO 10 % (21-46); MONOCYTES ABSOLUTE AUTO 0.54 K/mm3 (0.16-1.47); MONOCYTES PERCENT AUTO 7 % (4-13); Mean Corpuscular HGB 30.4 pg (26.0-34.0); Mean Corpuscular Volume 95 fL (80-100); Mean Platelet Volume 11.8 fL (9.1-12.4); NEUTROPHILS ABSOLUTE AUTO 5.47 K/mm3 (1.96-9.15); NEUTROPHILS PERCENT AUTO 72 % (41-73); Platelet Count 89 K/mm3 (150-400); RDW Coefficient Variation 16.7 % (11.7-14.2); RDW Standard Deviation 54.5 fL (35.1-46.3); Red Blood Cell Count 2.93 M/mm3 (3.80-5.20); White Blood Cell Count 7.62 K/mm3 (4.00-11.30)
[2019-07-03 04:41] LABS: International Normalized Ratio 1.39; Prothrombin Time Results 14.6 Sec (9.7-11.5)
[2019-07-03 04:46] LABS: Alanine Aminotransfer (ALT/SGP 64 U/L (12-78); Albumin, Blood 2.3 g/dL (3.4-5.0); Albumin/Globulin Ratio 0.8 (0.8-1.8); Alk Phos 302 U/L (50-136); Anion Gap 6 mmol/L (6-16); Aspartate Aminotrans (AST/SGOT 53 U/L (12-37); Bilirubin, Total 2.4 mg/dL (0.1-1.0); Blood Urea Nitrogen 23 mg/dL (8-24); Bun/Creatinine Ratio 35.2 (12.0-20.0); CO2, Blood 21 mmol/L (21-32); Calcium, Blood 7.5 mg/dL (8.5-10.1); Chloride, Blood 114 mmol/L (98-108); Creatinine, Blood 0.65 mg/dL (0.40-1.00); Glomerular Filtration Rate >60 (60-); Glucose, Blood 207 mg/dL (70-99); Magnesium, Blood 1.7 mg/dL (1.6-2.4); Phosphorus, Blood 2.4 mg/dL (2.5-4.9); Potassium, Blood 3.5 mmol/L (3.5-5.5); Sodium, Blood 141 mmol/L (136-145); Total Protein, Blood 5.3 g/dL (6.4-8.2)
--- NOTE | 2019-07-03 06:28 | NUR ---
ASSUMED CARE OF PT AT 0200. SBT DONE THIS AM AND PT DID WELL. SEDATION VACATION UNTIL NOW. PT WILL FLUTTER EYE'S TO TRY TO OPEN THEM ON COMMAND. RESTARTED PROPOFOL AT 25MCG/KG/MIN DOWN FROM 50MCG. REMAINS ON LEVOPHED AT 6MCG/MIN TO KEEP MAP GREATER THAN 60. STILL PUTTING OUT LIQUID STOOL OUT OF RECTAL TUBE. WILL REPORT TO DAY RN.
--- NOTE | 2019-07-03 08:00 | NUR ---
INITIAL ASSESMENT PT INTUBATED AND SEDATED, WILL FROWN TO PAINFUL STIM, PUPILS EQUAL. HR IN THE 80S TO 90S TMAX 100.4, LEVO REMAINS AND WILL WEAN TOLERATED, WIDE PULSE PRESSURE SBP IN THE 100S, MAP GREATER THAN 60. PALP PULSES BILAT ARMS AND HAND WITH PITTING EDEMA, ELEVATED ON PILLOWS. TOLERATING VENT SETTINGS WITH SATS IN LOW 90S, THICK YELLOW SXN VIA ETT. WILL FIGHT AND RESIST VENT WHEN MOVED OR STIM WITH SATS DECREASING TO THE HIGH 80S WITH MODERATE RECOVERY. COURSE AND DIM BILAT. TOLERATING TF, FMS IN PLACE DRAING DARK BROWN LIQUID STOOL, LACTULOSE REMAINS. OBESE BT PRESENT. UO ADEQUATE CLEAR AND YELLOW. WILL CONT TO MONITOR
--- NOTE | 2019-07-03 16:00 | NUR ---
PT UPDATE REMAINS INTUBATED AND SEDATED, NEURO REMAINS STABLE AND UNCHANGED, CORE TEMP REDUCING, PALP PULSES, HR REMAINS STABLE, LEVO REMAINS AND UNABLE TO WEAN. TOLERATING VENT SETTINGS WITH SATS IN LOW 90S. TOLERATING TF, FMS IN PLACE. TF TUBING AND CANNISTER CHANGED. UO ADEQUATE, PICC DRESSING CHANGED. WILL CONT TO MONITOR
--- NOTE | 2019-07-03 20:56 | NUR ---
[place] of Care: Care assumed at 1900hr. Patient intubated/sedated. Responds to painful/noxious stimuli, but not following any commands. Appears calm/comfortable when not stimulated by staff. Propofol gtt at 25mcgkg/min, plan for sedation vacation late this shift. Levophed gtt at 6mcg/min, MAP's in the 70's. Attempted to decreased levophed gtt to 5mcg/min at this time, systolic BP decreased to 70's, MAP's 40's, levophed increased back to 6mcg/min. Ventilator to AC-14/350/5/40%, tolerating vent mode without difficulty. PICC line to OSVALDO patent and intact, infusing without difficulty. Lagunas cath patent and intact, draining clear yellow urine. Rectal tube in place, draining liquid brown stool. Patient's at bedside. Will continue to monitor for pain, comfort, safety.
[2019-07-04 03:32] LABS: BASOPHILS ABSOLUTE AUTO 0.06 K/mm3 (0.00-0.23); BASOPHILS PERCENT AUTO 1 % (0-2); EOSINOPHILS ABSOLUTE AUTO 0.86 K/mm3 (0.00-0.68); EOSINOPHILS PERCENT AUTO 13 % (0-6); Hematocrit 30.9 % (33.0-51.0); Hemoglobin 9.7 g/dL (11.5-16.0); IMMATURE GRAN ABSOLUTE AUTO 0.06 K/mm3 (0.00-0.10); IMMATURE GRAN PERCENT AUTO 1 % (0-1); LYMPHOCYTES ABSOLUTE AUTO 0.75 K/mm3 (0.84-5.20); LYMPHOCYTES PERCENT AUTO 11 % (21-46); MONOCYTES ABSOLUTE AUTO 0.68 K/mm3 (0.16-1.47); MONOCYTES PERCENT AUTO 10 % (4-13); Mean Corpuscular HGB 29.8 pg (26.0-34.0); Mean Corpuscular HGB Conc 31.4 g/dL (31.5-36.5); Mean Corpuscular Volume 95 fL (80-100); Mean Platelet Volume 11.8 fL (9.1-12.4); NEUTROPHILS ABSOLUTE AUTO 4.36 K/mm3 (1.96-9.15); NEUTROPHILS PERCENT AUTO 64 % (41-73); Platelet Count 111 K/mm3 (150-400); RDW Standard Deviation 55.5 fL (35.1-46.3); Red Blood Cell Count 3.25 M/mm3 (3.80-5.20); White Blood Cell Count 6.77 K/mm3 (4.00-11.30)
[2019-07-04 03:50] LABS: Alanine Aminotransfer (ALT/SGP 53 U/L (12-78); Albumin, Blood 2.2 g/dL (3.4-5.0); Albumin/Globulin Ratio 0.6 (0.8-1.8); Alk Phos 331 U/L (50-136); Anion Gap 6 mmol/L (6-16); Aspartate Aminotrans (AST/SGOT 46 U/L (12-37); Bilirubin, Total 2.7 mg/dL (0.1-1.0); Blood Urea Nitrogen 23 mg/dL (8-24); Bun/Creatinine Ratio 40.3 (12.0-20.0); CO2, Blood 21 mmol/L (21-32); Chloride, Blood 120 mmol/L (98-108); Creatinine, Blood 0.57 mg/dL (0.40-1.00); Globulin, Blood 3.5 g/dL (2.2-4.0); Glomerular Filtration Rate >60 (60-); Glucose, Blood 163 mg/dL (70-99); Magnesium, Blood 1.9 mg/dL (1.6-2.4); Phosphorus, Blood 2.3 mg/dL (2.5-4.9); Sodium, Blood 147 mmol/L (136-145); Total Protein, Blood 5.7 g/dL (6.4-8.2)
--- NOTE | 2019-07-04 06:19 | NUR ---
Shift Summary: Patient Vent switched to pressure support of 7/5 at 0500hr. Propofol placed on stand-by at 0430hr. Patient now opens eyes spontaneously, but not following any commands or tracking staff. Decision made with RT Rick to leave patient on pressure support for remainder of shift as tolerated. Also leaving Propofol gtt and stand-by as tolerated to allow patient to fully wake and better assess neuro status. No s/s of pain or discomfort noted, remaining calm. Rectal tube remains patent and intact, draining moderate amount of liquid brown/green stool. Lagunas remains patent and intact, draining clear yellow urine. Levophed gtt remained at 6mcg/min throughout shift, BP stable. Will continue to monitor until report to day shift RN.
--- NOTE | 2019-07-04 11:19 | NUR ---
CARE ASSUMED REPORT RECEIVED, CARE ASSUMED AT 0700 FROM ALEKSANDER ROTH. PT INTUBATED ON SPONTANEOUS. NO SEDATION. PT DOES HAVE SPONTANEOUS MOVEMENT BUT MINIMALLY INTERACTIVE, SEE ASSESSMENT. BP STABLE WITH LEVOPHED, SEE FLOWSHEET FOR TITRATIONS. SPO2 90'S, PT AFEBRILE. HR 80'S. RECTAL TUBE AND GEORGE IN PLACE. PT RESTRAINED BILATERAL WRISTS.
--- NOTE | 2019-07-04 19:23 | NUR ---
REPORT TO IRA RN AND TERRY RN TO ASSUME CARE
--- NOTE | 2019-07-04 19:23 | NUR ---
SUMMARY PT HAS REMAINED UNSEDATED AND VENTED THROUGHOUT SHIFT. PT OPENING EYES TO SOUND, BUT NOT FOLLOWING DIRECTIONS OR MAKING PURPOSEFUL MOVEMENTS. DOES WITHDRAW TO PAIN. PT HAS TOLERATED SPONTANEOUS MODE ON VENT DURATION OF DAY. TITAL VOLUMES ADEQUATE, RR EVEN, UNLABORED WITH RATE 12-22. ORDER TO CHANGE TO AC AT NIGHT OR IF PT STOPS TOLERATING VENT. LEVOPHED TITRATED TO 5 MCG/MIN, UNABLE TO TITRATE FURTHER DUE TO MAPS 60-65 THROUGHOUT DAY. HR STABLE IN 80'S. PT AFEBRILE. TUBE FEEDING CHANGED PER ORDERS. RECTAL TUBE CONTINUES TO DRAIN LIQUID BROWN STOOL. ADEQUATE OUTPUT FROM GEORGE. SEE I/O FLOWSHEET. PLAN FOR ENT CONSULT TOMORROW FOR POSSIBLE TRACH PLACEMENT.
--- NOTE | 2019-07-04 22:47 | NUR ---
ASSUMED CARE AT 1900, RECEIVED BEDSIDE REPORT FROM JOSH ARMIJO. ITRACE LINES, ORDERS, LABS REVIEWED. PT ON PS 7/5 SWITCHED TO AC 14/350/40/5 VENT SETTINGS @2100. PT OPENING EYES SPONTANEOUSLY, TO VOICE AND TOUCH. FAMILY ENTERED SHORTLY AFTER, IN GOOD SPIRITS. PT RESPONDED TO HAND TOUCH AND LANG PATH THERAPIST WITH RIGHT HAND AND EYE OPENING. PT DID NOT MESS ATTENDANT CREW NURSE'S HAND IN SAME ATTEMPT. PT NOT ATTEMPTING TO SPEAK, AND DOES NOT FOLLOW COMMANDS. PT STILL REQUIRING LEVOPHED FOR STABLE BPs, BUT NOT LABILE.
[2019-07-05 04:22] LABS: BASOPHILS ABSOLUTE AUTO 0.06 K/mm3 (0.00-0.23); BASOPHILS PERCENT AUTO 1 % (0-2); EOSINOPHILS ABSOLUTE AUTO 0.76 K/mm3 (0.00-0.68); EOSINOPHILS PERCENT AUTO 12 % (0-6); Hematocrit 29.3 % (33.0-51.0); IMMATURE GRAN ABSOLUTE AUTO 0.05 K/mm3 (0.00-0.10); IMMATURE GRAN PERCENT AUTO 1 % (0-1); LYMPHOCYTES PERCENT AUTO 13 % (21-46); MONOCYTES ABSOLUTE AUTO 0.56 K/mm3 (0.16-1.47); MONOCYTES PERCENT AUTO 9 % (4-13); Mean Corpuscular HGB 29.4 pg (26.0-34.0); Mean Corpuscular HGB Conc 30.7 g/dL (31.5-36.5); Mean Corpuscular Volume 96 fL (80-100); Mean Platelet Volume 11.6 fL (9.1-12.4); NEUTROPHILS PERCENT AUTO 65 % (41-73); Platelet Count 102 K/mm3 (150-400); RDW Coefficient Variation 17.2 % (11.7-14.2); RDW Standard Deviation 58.1 fL (35.1-46.3); Red Blood Cell Count 3.06 M/mm3 (3.80-5.20); White Blood Cell Count 6.33 K/mm3 (4.00-11.30)
[2019-07-05 04:38] LABS: International Normalized Ratio 1.27; Prothrombin Time Results 13.4 Sec (9.7-11.5)
[2019-07-05 04:41] LABS: Anion Gap 5 mmol/L (6-16); Blood Urea Nitrogen 19 mg/dL (8-24); Bun/Creatinine Ratio 37.3 (12.0-20.0); CO2, Blood 22 mmol/L (21-32); Calcium, Blood 8.1 mg/dL (8.5-10.1); Chloride, Blood 121 mmol/L (98-108); Creatinine, Blood 0.51 mg/dL (0.40-1.00); Glomerular Filtration Rate >60 (60-); Glucose, Blood 197 mg/dL (70-99); Magnesium, Blood 1.9 mg/dL (1.6-2.4); Phosphorus, Blood 1.9 mg/dL (2.5-4.9); Potassium, Blood 3.1 mmol/L (3.5-5.5); Sodium, Blood 148 mmol/L (136-145)
[2019-07-05 05:04] LABS: PCO2 Arterial 34.6 mmHg (35-45); PO2 Arterial 71.4 mmHg (80-100); pH Blood Arterial 7.39 (7.35-7.45)
--- NOTE | 2019-07-05 06:42 | NUR ---
PT REMAINED STABLE THROUGH THE NIGHT, OCCASIONALLY COUGHING ON VENT, BUT OTHERWISE TOLERATING. PT FREQUENTLY OPENING EYES NOW AND A LITTLE MORE ALERT. PT STILL NOT MOVING MUCH ON OWN. VENT SETTINGS 14/350/40/5. PT STILL STABLE ON LEVOPHED AT 5 MCG.
--- NOTE | 2019-07-05 07:49 | NUR ---
CARE ASSUMED REPORT RECEIVED, CARE ASSUMED AT 0700 FROM ALEKSANDER CHARLES AND ALEKSANDER ROTH. PT INTUBATED ON PRESSURE SUPPORT, TOLERATING WELL - SEE ASSESSMENT. LEVOPHED TITRATED - SEE FLOWSHEET. VITALS STABLE. PT MUCH MORE AWAKE UPON INTIAL ASSESSMENT BUT QUICKLY FELL ASLEEP AFTER ASSESSMENT. CONTINUES TO BE WITHOUT SEDATION. PT DOES MOVE HEAD AROUND WHEN AWAKE, BUT RELAXED, NO FACIAL GRIMACE WHILE ASLEEP. WILL COTINUE TO CLOSELY MONITOR FOR PAIN/DISCOMFORT. PT NOT RESPONDING TO YES/NO QUESTIONS REGARDING PAIN OR CARE AT THIS TIME. GEORGE & RECTAL TUBE IN PLACE FOR ELIMINATION. BILAT WRIST RESTRAINTS FOR SAFETY.
--- NOTE | 2019-07-05 13:48 | NUR ---
UPDATE THIS AFTERNOON, PT HAS BECOME INCREASINGLY MORE AGITATED/RESTLESS. SHE IS NOT FOLLOWING DIRECTIONS, MAKING EYE CONTACT, OR REDIRECTABLE. WITHIN THE LAST HALF HOUR PT HAS STARTED THRASHING HER HEAD BACK AND FORTH, LIFTING UP BOTH SHOULDERS OFF OF BED, AND KICKING LEGS AROUND. ATTEMPT TO REDIRECT, ATTEMPT TO ASK PT YES/NO QUESTIONS WITH NO SUCCESS, REPOSITIONED FOR COMFORT. UPDATED DR. MITCHELL PT AT RISK OF DISLODGING ETT. ORDER FOR FENTANYL AND IF UNSUCCESSFUL AT CALMING PATIENT TURN PATIENT BACK TO AC VENT MODE AND RESEDATE. MEDICATED WITH FENTANYL AND PT CONTINUES TO ESCALATE. PROPOFOL STARTED. SEE FLOWSHEET. VENT TO AC BY RT MAYO.
--- NOTE | 2019-07-05 17:03 | NUR ---
Met with son and DIL at bedside. They tell me family remains hopeful Antonina will do well with trach and be able to return home soon afterwards. Antoinna is the center of this family, and they admit that losing her is unthinkable. Prayer and clinical counselor provided to good effect. I will remain available.
--- NOTE | 2019-07-05 18:56 | NUR ---
SUMMARY SINCE PREVIOUS NOTE, PT HAS REMAINED SEDATED. CONTINUES TO AROUSE BUT MUCH LESS RESTLESS. RESPIRATORY RATE IMPROVED. LEVOPHED TITRATED UP FOR LOWERED BP, SEE FLOWSHEET. SEE REPEAT ASSESSMENTS. PLAN FOR BEDSIDE TRACH PLACEMENT TOMORROW AT [address] MITCHELL CONFIRMED WITH DR. CARDENAS, WAREHOUSE PACKAGING SUPERVISOR FOR TOMORROW, PLAN FOR BEDSIDE TRACH. DR. RIVAS REQUESTING OPERATING ROOM SCOPE. ANJELICA, NURSING MEDICAL PSYCHOTHERAPIST AGREED TO EVALUATE AVAILABLITY AND REPORT BACK. PT'S UPDATED AND AGREES TO BE HERE EARLY AND DURING PROCEDURE TO SIGN CONSENT FOR PATIENT. PT CONTINUES WITH GEORGE, RECTAL TUBE AND TUBE FEEDING. PLAN TO STOP TUBE FEEDING 8 HOURS PRIOR TO PROCEDURE PER ORDERS. PT HAS HAD FAMILY AT BEDSIDE MAJORITY OF SHIFT. DR. MITCHELL HAS BEEN IN AND OUT OF ROOM TODAY, UPDATING FAMILY ON PLAN OF CARE. FAMILY AGREEABLE.
--- NOTE | 2019-07-05 19:27 | NUR ---
REPORT TO JAYCEE, RN TO ASSUME CARE
--- NOTE | 2019-07-05 20:58 | NUR ---
ASSUME CARE PT CALM IN BED, SEDATED. VENT SETTINGS 14/350/5/35%. AFEBRILE. VSS. PROP AT 50MG/HR, 1/2NS INFUSING AT 10/HR, LEVO AT 6MCG/KG/HR. TUBE FEEDS RUNNING AT 25/HR WITH Q3H WATER FLUSHES OF 150ML. GEORGE CATHETER PATENT AND DRAINING TO GRAVITY. BOWEL MANAGEMENT SYSTEM DRAINING DARK LIQUID STOOL. PATIENT'S FAMILY AT BEDSIDE.
[2019-07-06 03:34] LABS: BASOPHILS ABSOLUTE AUTO 0.06 K/mm3 (0.00-0.23); BASOPHILS PERCENT AUTO 1 % (0-2); EOSINOPHILS ABSOLUTE AUTO 1.02 K/mm3 (0.00-0.68); EOSINOPHILS PERCENT AUTO 17 % (0-6); Hematocrit 30.3 % (33.0-51.0); Hemoglobin 9.5 g/dL (11.5-16.0); IMMATURE GRAN ABSOLUTE AUTO 0.04 K/mm3 (0.00-0.10); IMMATURE GRAN PERCENT AUTO 1 % (0-1); LYMPHOCYTES ABSOLUTE AUTO 0.79 K/mm3 (0.84-5.20); LYMPHOCYTES PERCENT AUTO 13 % (21-46); MONOCYTES ABSOLUTE AUTO 0.58 K/mm3 (0.16-1.47); MONOCYTES PERCENT AUTO 10 % (4-13); Mean Corpuscular HGB 29.8 pg (26.0-34.0); Mean Corpuscular HGB Conc 31.4 g/dL (31.5-36.5); Mean Corpuscular Volume 95 fL (80-100); NEUTROPHILS ABSOLUTE AUTO 3.56 K/mm3 (1.96-9.15); NEUTROPHILS PERCENT AUTO 59 % (41-73); Platelet Count 100 K/mm3 (150-400); RDW Coefficient Variation 17.2 % (11.7-14.2); RDW Standard Deviation 58.4 fL (35.1-46.3); Red Blood Cell Count 3.19 M/mm3 (3.80-5.20); White Blood Cell Count 6.05 K/mm3 (4.00-11.30)
[2019-07-06 03:43] LABS: Base Excess Venous -3.4 mmol/L; PCO2 Venous 31.8 mmHg (38-42); PO2 Venous 70.9 mmHg (38-42); pH Blood Venous 7.43 (7.34-7.37)
[2019-07-06 03:48] LABS: International Normalized Ratio 1.31; Prothrombin Time Results 13.8 Sec (9.7-11.5)
[2019-07-06 03:50] LABS: Albumin, Blood 2.1 g/dL (3.4-5.0); Anion Gap 5 mmol/L (6-16); Blood Urea Nitrogen 16 mg/dL (8-24); Bun/Creatinine Ratio 36.5 (12.0-20.0); CO2, Blood 21 mmol/L (21-32); Chloride, Blood 120 mmol/L (98-108); Creatinine, Blood 0.44 mg/dL (0.40-1.00); Glomerular Filtration Rate >60 (60-); Glucose, Blood 224 mg/dL (70-99); Magnesium, Blood 1.8 mg/dL (1.6-2.4); Potassium, Blood 3.3 mmol/L (3.5-5.5); Sodium, Blood 146 mmol/L (136-145)
--- NOTE | 2019-07-06 06:49 | NUR ---
SHIFT SUMMARY PT ON 8MCG/HR OF LEVOPHED WITH MAP>60. ATTEMPTS TO WEAN OFF LEVO UNSUCCESSFUL. AFEBRILE THROUGHOUT NIGHT. SECRETIONS LESS THAN BEFORE, STILL THICK CREAMY AND BLOOD TINGED. FLEXISEAL DRAINING WELL. 400 OUTPUT THROUGHOUT NIGHT. URINE OUTPUT 650 FOR THE SHIFT. PT CONTINUED TO WITHDRAW FROM PAINFUL STIMULI. WILL CONTINUE TO MONITOR.
--- NOTE | 2019-07-06 06:51 | NUR ---
TUBE FEEDS TUBE FEEDS OFF AT 0400 FOR TRACH PLACEMENT TODAY (07/06)_.
--- NOTE | 2019-07-06 11:03 | NUR ---
AM NOTE... PT IS RESTRAINED, ON PROPOFOL, VENTED WITH NOTED SETTINGS. HAS LEVOPHED GTT THAT IS BEING TITRATED NOTED. PT FLEXI SEAL IS DRAINING ORANGE FLUID. MINIMAL ET SECREATIONS BUT HAS SCAN AMOUNT OF ORAL BLEEDING NOTED. TUBE FEEDING HAS BEEN OFF ALL SHIFT AND CLAMPED. IVF PER L ARM PICC. SUPPLIES ARE BEING GATHERED AND ARRANGE FOR THE NOON PERC. TRACH.
--- NOTE | 2019-07-06 12:38 | NUR ---
07/06/19 Elis Ly MONITOR INTACT WITH CONTINUOUS PULSE OXIMETRY AND INTERMITTENT BP AT START OF PERCUTANEOUS TRACH PROCEDURE.
--- NOTE | 2019-07-06 15:50 | NUR ---
RESTARTTING TF ON GLUCERNA 1.2 AT 25ML PER ORDER.
--- NOTE | 2019-07-06 19:00 | NUR ---
ASSUMED CARE ASSUMED CARE OF PATIENT. REMAINS MECHANICALLY VENTILATED- AC 14, TV 350, PEEP 5, FIO2 35%. RR 25-35. TRACH SITE WITH SMALL AMOUNT OF BLEEDING NOTED. SX SMALL AMOUNT BLOODY SECRETIONS FROM TRACH. SEDATED WITH PROPOFOL @ 40MCG/KG/MIN. NOT FOLLOWING COMMANDS. NO SPONTANEOUS MOVEMENT NOTED. BILATERAL SOFT WRIST RESTRAINTS IN PLACE. MONITOR SHOWS NSR, RATE 70s. BP STABLE WITH LEVOPHED @ 3MCG/MIN. AFEBRILE. DOBHOFF TO RIGHT NARES WITH PIVOT 1.5 @ GOAL RATE OF 25CC/HR. GEORGE PATENT AND DRAINING CLEAR YELLOW URINE. RECTAL TUBE PATENT WITH LIQUID BROWN STOOL. PAS TO BLE. SEE SHIFT ASSESSMENT FOR FULL ASSESSMENT.
--- NOTE | 2019-07-06 19:02 | NUR ---
PT HAS HAD MINIMAL BLEEDING FROM TRACH SITE INTERNAL OR EXTERNAL. PT VENT SETTING AC 14,350,35%, PEEP 5. I/O NOTED . VSS AND LEVOPHED GTT DOWN TO 3MCG. TF INFUSING AT 25ML AND Q4 FLUSH OF 150ML PER ORDER. ARMS AND HEELS FLOATED.
[2019-07-07 04:00] LABS: BASOPHILS ABSOLUTE AUTO 0.02 K/mm3 (0.00-0.23); BASOPHILS PERCENT AUTO 1 % (0-2); EOSINOPHILS ABSOLUTE AUTO 0.52 K/mm3 (0.00-0.68); EOSINOPHILS PERCENT AUTO 15 % (0-6); Hematocrit 25.9 % (33.0-51.0); Hemoglobin 8.1 g/dL (11.5-16.0); IMMATURE GRAN ABSOLUTE AUTO 0.03 K/mm3 (0.00-0.10); IMMATURE GRAN PERCENT AUTO 1 % (0-1); LYMPHOCYTES ABSOLUTE AUTO 0.54 K/mm3 (0.84-5.20); LYMPHOCYTES PERCENT AUTO 16 % (21-46); MONOCYTES ABSOLUTE AUTO 0.37 K/mm3 (0.16-1.47); MONOCYTES PERCENT AUTO 11 % (4-13); Mean Corpuscular HGB Conc 31.3 g/dL (31.5-36.5); Mean Corpuscular Volume 96 fL (80-100); Mean Platelet Volume 11.8 fL (9.1-12.4); NEUTROPHILS ABSOLUTE AUTO 1.96 K/mm3 (1.96-9.15); NEUTROPHILS PERCENT AUTO 57 % (41-73); Platelet Count 63 K/mm3 (150-400); RDW Coefficient Variation 17.4 % (11.7-14.2); RDW Standard Deviation 59.8 fL (35.1-46.3); White Blood Cell Count 3.44 K/mm3 (4.00-11.30)
[2019-07-07 04:14] LABS: Albumin, Blood 2.8 g/dL (3.4-5.0); Anion Gap 4 mmol/L (6-16); Blood Urea Nitrogen 18 mg/dL (8-24); Bun/Creatinine Ratio 32.6 (12.0-20.0); CO2, Blood 22 mmol/L (21-32); Chloride, Blood 118 mmol/L (98-108); Creatinine, Blood 0.55 mg/dL (0.40-1.00); Glomerular Filtration Rate >60 (60-); Glucose, Blood 137 mg/dL (70-99); Magnesium, Blood 2.2 mg/dL (1.6-2.4); Phosphorus, Blood 3.3 mg/dL (2.5-4.9); Potassium, Blood 3.9 mmol/L (3.5-5.5); Sodium, Blood 144 mmol/L (136-145)
--- NOTE | 2019-07-07 06:32 | NUR ---
SHIFT SUMMARY NO ACUTE CHANGES DURING NOC. REMAINS MECHANICALLY VENTILATED- AC 14, TV 350, PEEP 5, FIO2 BETWEEN 35-40%. FIOW NOW AT 40%. RESP RATE MID-20s TO MID-30s. SX SMALL AMOUNT OF BLOODY SECRETIONS FROM TRACH. TRACH SITE WITH SMALL AMOUNT OF SANGUINOUS DRAINAGE. TRACH SUTURES IN PLACE. SEDATED WITH PROPOFOL BETWEEN 40-50MCG/KG/MIN- NOW AT 50MCG/KG/MIN. MEDICATED WITH FENTANYL 25MCG IV X 3 DOSES AN ADJUNCT TO SEDATION AND FOR FACIAL GRIMACING. BILATERAL SOFT WRIST RESTRAINTS REMAIN IN PLACE. WITHDRAWS TO NOXIOUS STIMULI. MINIMAL SPONTANEOUS MOVEMENT NOTED IN HEAD. NO OTHER SPONTANEOUS MOVEMENT NOTED. LEVOPHED INFUSED BETWEEN 2-4MCG/MIN TO MAINTAIN MAP >55- NOW INFUSING @ 4MCG/MIN. OSVALDO PICC LINE NOTED. MONITOR SHOWS NSR, RATE 70-80s. AFEBRILE. DOBHOFF WITH PIVOT 1.5 AT GOAL RATE OF 25CC/HR. 150CC H20 FLUSH Q3H. RECTAL TUBE WITH 200CC LIQUID BROWN STOOL. GEORGE PATENT AND DRAINING YELLOW URINE. SOME BLOOD NOTED IN URINE THIS AM. PAS TO BLE. WILL REPORT TO DAY SHIFT RN WHEN AVAILABLE.
--- NOTE | 2019-07-07 09:35 | NUR ---
BEDSIDE REPORT TAKEN AT 0700. PT SEDATED ON 50MCG PROPOFOL FOR MECH VENT. PT MINIMALLY RESPONSIVE, REPOSNDS TO NOXIOUS STIMULI W GRIMACE AND MOVEMENT OF HEAD. WHEN SEDATION DECREASED WORK OF BREATHING INCREASED WITH RESP RATE 30-40 AND RETRACTIONS. LUNGS W INSP/EXP WHEEZES T/O, COARSE T/O. THICK COLMENARES SECRETIONS SX FROM TRACH. PT'S GIVEN UPDATE VIA PHONE.
--- NOTE | 2019-07-07 10:42 | NUR ---
DR CARDENAS AT BEDSIDE. PROPOFOL DECREASED TO 40MCG.
--- NOTE | 2019-07-07 18:33 | NUR ---
Prayer provided at bedside for Antonina. No family present at time of visit. Antonina was non-responsive. I will remain available.
--- NOTE | 2019-07-07 18:53 | NUR ---
PRECEDEX TITRATED DOWN TO 15MCG. NO CHANGE IN PT'S MENTATION RELATED TO DECREASED SEDATION. FENT IVP GIVEN X3 FOR INCREASED RESP/RESP EFFORT. LEVOPHED IS ON STANDBY, SBP>60. LIQUID STOOL TO FLEXISEAL 2ND LACTULOSE. URINE CHANGED FROM ORANGE/HARVINDER/ TO MORE OF A RED COLOR W RED SEDIMENT. PT REMAINED W/O SWALLOW AND LOST GAG TOWARDS END OF SHIFT. LASIX GIVEN W ALBUMIN PER DR CARDENAS. FIO2 INCREASED TO 45% AT 1800 FOR SATS AT 87%. SOME PINK TINGED BLOOD SX'D FROM ETT. TRACH CARE COMPLETED AT 1700.
--- NOTE | 2019-07-07 19:00 | NUR ---
ASSUMED CARE ASSUMED CARE OF PATIENT. REMAINS MECHANICALLY VENTILATED- AC 14, TV 350, PEEP 5, FIO2 45%. RESP RATE 25-30s, APPEARS LABORED. TRACH SITE CLEAR. SX SMALL AMOUNT OF THIN BLOODY SECRETIONS FROM TRACH AND FROM MOUTH. SEDATED WITH PROPOFOL @ 15MCG/KG/MIN. WITHDRAWS EXTREMITIES SLIGHTLY TO NOXIOUS STIMULI. SOME OCCASIONAL FACIAL GRIMACING NOTED. NO OTHER SPONTANEOUS MOVEMENT NOTED. BILATERAL SOFT WRIST RESTRAINTS IN PLACE. MONITOR SHOWS ST WITH PACs, RATE 100-110. BP STABLE. LEVOPHED REMAINS OFF. TEMP 99.5F VIA GEORGE TEMP PROBE. DOBHOFF TO RIGHT NARES- PIVOT 1.5 IMMUNE INFUSING AT GOAL RATE OF 25CC/HR. 30CC H20 Q4H. GEORGE PATENT AND DRAINING YELLOW URINE WITH SOME SMALL STREAKS OF BLOOD NOTED IN TUBING. RECTAL TUBE PATENT AND DRAINING ORANGISH-BROWN LIQUID STOOL. PAS TO BLE. OSVALDO PICC LINE NOTED. SEE SHIFT ASSESSMENT FOR FULL ASSESSMENT.
[2019-07-08 05:03] LABS: BASOPHILS ABSOLUTE AUTO 0.02 K/mm3 (0.00-0.23); BASOPHILS PERCENT AUTO 0 % (0-2); EOSINOPHILS ABSOLUTE AUTO 0.43 K/mm3 (0.00-0.68); EOSINOPHILS PERCENT AUTO 9 % (0-6); Hematocrit 25.6 % (33.0-51.0); Hemoglobin 7.9 g/dL (11.5-16.0); IMMATURE GRAN ABSOLUTE AUTO 0.04 K/mm3 (0.00-0.10); IMMATURE GRAN PERCENT AUTO 1 % (0-1); LYMPHOCYTES ABSOLUTE AUTO 0.59 K/mm3 (0.84-5.20); LYMPHOCYTES PERCENT AUTO 13 % (21-46); MONOCYTES ABSOLUTE AUTO 0.41 K/mm3 (0.16-1.47); MONOCYTES PERCENT AUTO 9 % (4-13); Mean Corpuscular HGB 30.3 pg (26.0-34.0); Mean Corpuscular HGB Conc 30.9 g/dL (31.5-36.5); Mean Corpuscular Volume 98 fL (80-100); Mean Platelet Volume 12.1 fL (9.1-12.4); NEUTROPHILS ABSOLUTE AUTO 3.12 K/mm3 (1.96-9.15); NEUTROPHILS PERCENT AUTO 68 % (41-73); RDW Coefficient Variation 17.3 % (11.7-14.2); RDW Standard Deviation 59.9 fL (35.1-46.3); Red Blood Cell Count 2.61 M/mm3 (3.80-5.20); White Blood Cell Count 4.61 K/mm3 (4.00-11.30)
[2019-07-08 05:06] LABS: Platelet Count 50 K/mm3 (150-400)
[2019-07-08 05:21] LABS: Albumin, Blood 3.6 g/dL (3.4-5.0); Anion Gap 8 mmol/L (6-16); Blood Urea Nitrogen 25 mg/dL (8-24); Bun/Creatinine Ratio 40.3 (12.0-20.0); CO2, Blood 21 mmol/L (21-32); Calcium, Blood 8.3 mg/dL (8.5-10.1); Chloride, Blood 114 mmol/L (98-108); Creatinine, Blood 0.62 mg/dL (0.40-1.00); Glomerular Filtration Rate >60 (60-); Glucose, Blood 169 mg/dL (70-99); Phosphorus, Blood 4.4 mg/dL (2.5-4.9); Potassium, Blood 4.1 mmol/L (3.5-5.5); Sodium, Blood 143 mmol/L (136-145)
--- NOTE | 2019-07-08 06:35 | NUR ---
SHIFT SUMMARY NO ACUTE CHANGES DURING NOC. REMAINS MECHANICALLY VENTILATED- AC 14, TV 350, PEEP 5, FIO2 45%. RR 16-20s. TRACH SITE WITH SMALL AMOUNT OF BLOODY DRAINAGE NOTED. SUTURES INTACT. SC SMALL AMOUNT OF BLOODY SECRETIONS FROM TRACH AND FROM MOUTH. ALSO OCCASIONALLY SUCTIONING THICK COLMENARES SPUTUM. SEDATED WITH PROPOFOL BETWEEEN 15-30MCG/KG/MIN- NOW INFUSING @ 30MCG/KG/MIN. MEDICATED WITH FENTANYL 50MCG IV X 3 DOSES FOR FACIAL GRIMACING AND FOR INCREASED RR/WORK OF BREATHING. NO SPONTANEOUS MOVEMENT NOTED. WITHDRAWS MINIMALLY TO NOXIOUS STIMULI. BILATERAL SOFT WRIST RESTRAINTS REMAIN IN PLACE. VSS T/O NOS. MONITOR SHOWS ST WITH PACs. DOBHOFF WITH PIVOT 1.5 AT GOAL RATE OF 25CC/HR. 30CC H20 Q4H. RECTAL TUBE PATENT AND DRAINING LIQUID BROWN STOOL. FOLE PATENT AND DRAINING YELLOW URINE- BLOOD NOTED IN TUBING THIS AM. PAS TO BLE. OSVALDO PICC NOTED. OSVALDO WITH WEEPING EDEMA NOTED. WILL REPORT TO DAY SHIFT RN WHEN AVAILABLE.
--- NOTE | 2019-07-08 07:26 | NUR ---
BEDSIDE REPORT TAKEN AT 0700. PT SEDATED ON 30MCG PROPOFOL FOR MECH VENT. PT RESP ARE MUCH LESS LABORED TODAY, RATE AROUND 20. LEVOPHED REMAINS OFF. WEEPING NOTED TO LEFT ARM, GENERALIZED EDEMA WORSE OVERALL. BLOOD NOTED IN URINE, PLATELETS DOWN TO 50, HBG 7.9. PT'S SON AT BEDSIDE FOR REPORT.
--- NOTE | 2019-07-08 10:22 | NUR ---
DR CARDENAS IN TO SEE PT. PRECEDEX GTT TO BE STARTED WITH FENT IVP PRN, WILL WEAN PT OFF PROPOFOL TOLERATED.
--- NOTE | 2019-07-08 13:21 | NUR ---
PT'S BP TRENDING DOWN. PRECEDEX AT 0.3MCG. DR CARDENAS NOTIFIED, LEVOPHED RESTARTED AT 5MCG WITH A GOAL MAP OF 55. PT REMAINS MINIMALLY RESPONSIVE; RESP EVEN AND UNLABORED ON SPONT W PS OF 5.
--- NOTE | 2019-07-08 14:42 | NUR ---
DURING TURN PT OPENED BOTH EYES. PT DID NOT TRACK W EYES, RESP INCREASED 30, RESP LABORED, DOES NOT FOLLOW COMMANDS. PRECEDEX AT 0.3MCG. LEVOPHED AT 5MCG. LASIX W ALBUMIN GIVEN IV. FENT 25MCG GIVEN FOR GRIMACE AND INCREASED RESP EFFORT
--- NOTE | 2019-07-08 16:49 | NUR ---
PT OPENED EYES WITH TURN, GRIMACING, OPENED MOUTH FOR ORAL; UNSURE IF THIS WAS INTENIONAL. PT RESP RATE W INCREASED LABORED BREATHING(ACCESSORY MUSCLE USE) NOTED W TURN. INNER CANNUNLA CHANGED BY RAKESH RT. PRECEDEX INCREASED TO 0.4MCG FOR INCREASED DISCOMFORT/RESP EFFORT. PT CONT TO TOLERATE SPONT PS 5 SETTINGS (STATS >90%).
--- NOTE | 2019-07-08 19:30 | NUR ---
ASSUMED CARE ASSUMED CARE OF PATIENT AT 1900. REMAINS MECHANICALLY VENTILATED- AC 14, TV 350, PEEP 5, FIO2 45%. RR 20S-30s. TRACH SITE NOTED WITH SUTURES INTACT- NO DRAINAGE AT THIS TIME. SX SMALL AMOUNT OF THICK COLMENARES SPUTUM. SEDATED WITH PRECEDEX @ 0.4MCG/KG/HR. OPENS EYES WITH NOXIOUS STIMULI. WITHDRAWS TO STIMULI. NO OTHER SPONTANEOUS MOVEMENT NOTED. JASMEET, 4MM, SLUGGISH. BILATERAL SOFT WRIST RESTRAINTS IN PLACE. MONITOR SHOWS NSR, RATE 70-80s. LEVOPHED GTT AT 3MCG/MIN TO KEEP MAP >55. DOBHOFF WITH PIVOT 1.5 AT GOAL RATE OF 25CC/HR. 300CC H20 Q4H. RECTAL TUBE IN PLACE WITH LIQUID BROWN STOOL. GEORGE PATENT AND DRAINING YELLOW URINE- OCCASIONAL BLOOD NOTED IN URINE. OSVALDO PICC NOTED. OSVALDO WITH WEEPING EDEMA. SCDs TO BLE. SEE SHIFT ASSESSMENT FOR FULL ASSESSMENT.
--- NOTE | 2019-07-08 20:15 | NUR ---
PT DID WELL ON THE PRECEDEX GTT COMPARED TO THE PROPOFOL GTT; PT OPENED EYES AND SLIGHTLY MORE RESPONSIVE ON PRECEDEX GTT. LEVOPHED AT 3MCG AT END OF SHIFT. PT'S DAUGHTER CAME IN TO VISIT DURING THE AFTERNOON. LEFT ARM CONTINUED TO WEEP. LASIX FOLLOWED BY ALBUMIN GIVEN PER DR CARDENAS, PT'S BP TOLERATED THE LASIX, LEVOPHED DID NOT NEED TO BE TITRATED UP AFTER LASIX GIVEN. TRACH DRESSING W SCANT AMOUNT OF BLOOD TO IT WHEN CHANGED. INNER CANNULA CAHNGED BY RT CAMERON. NO BLOOD NOTED FROM SUCTIONING TRACH, BUT THICK COLMENARES SECRETIONS SUCTIONED. BEDSIDE REPORT GIVEN TO ADRIEL ARMIJO AT 1900.
[2019-07-09 03:59] LABS: BASOPHILS ABSOLUTE AUTO 0.01 K/mm3 (0.00-0.23); BASOPHILS PERCENT AUTO 0 % (0-2); EOSINOPHILS ABSOLUTE AUTO 0.28 K/mm3 (0.00-0.68); EOSINOPHILS PERCENT AUTO 6 % (0-6); Hemoglobin 7.8 g/dL (11.5-16.0); IMMATURE GRAN ABSOLUTE AUTO 0.03 K/mm3 (0.00-0.10); IMMATURE GRAN PERCENT AUTO 1 % (0-1); LYMPHOCYTES ABSOLUTE AUTO 0.54 K/mm3 (0.84-5.20); LYMPHOCYTES PERCENT AUTO 12 % (21-46); MONOCYTES PERCENT AUTO 7 % (4-13); Mean Corpuscular HGB 30.2 pg (26.0-34.0); Mean Corpuscular HGB Conc 31.2 g/dL (31.5-36.5); Mean Corpuscular Volume 97 fL (80-100); Mean Platelet Volume 11.8 fL (9.1-12.4); NEUTROPHILS ABSOLUTE AUTO 3.34 K/mm3 (1.96-9.15); NEUTROPHILS PERCENT AUTO 74 % (41-73); RDW Coefficient Variation 17.3 % (11.7-14.2); RDW Standard Deviation 59.7 fL (35.1-46.3); Red Blood Cell Count 2.58 M/mm3 (3.80-5.20)
[2019-07-09 04:08] LABS: Platelet Count 40 K/mm3 (150-400)
[2019-07-09 04:16] LABS: Albumin, Blood 3.8 g/dL (3.4-5.0); Anion Gap 7 mmol/L (6-16); Blood Urea Nitrogen 34 mg/dL (8-24); Bun/Creatinine Ratio 55.6 (12.0-20.0); CO2, Blood 21 mmol/L (21-32); Calcium, Blood 8.7 mg/dL (8.5-10.1); Chloride, Blood 116 mmol/L (98-108); Creatinine, Blood 0.61 mg/dL (0.40-1.00); Glomerular Filtration Rate >60 (60-); Glucose, Blood 125 mg/dL (70-99); Phosphorus, Blood 3.5 mg/dL (2.5-4.9); Potassium, Blood 3.6 mmol/L (3.5-5.5); Sodium, Blood 144 mmol/L (136-145)
--- NOTE | 2019-07-09 06:32 | NUR ---
SHIFT SUMMARY NO ACUTE CHANGES. REMAINS MECHANICALLY VENTILATED. AC VENTILATION SINCE 2329. INCREASED SPUTUM NOTED THIS AM- THICK COLMENARES WITH SOME BLOODY STREAKS. RR 20s-30s. FIO2 INCREASED TO 55% AT THIS TO KEEP SATS >88%. PRECEDEX INFUSED AT 0.4MCG/KG/HR T/O MOST OF SHIFT. APPROXIMATELY 45 MINUTE SEDATION VACATION DONE THIS AM WITHOUT ANY CHANGE IN NEURO STATUS. OPENS EYES TO STIMULI/REPOSITIONING AND OCCASIONAL MOVEMENT NOTED IN LEFT FOOT. NO OTHER SPONTANEOUS MOVEMENT NOTED. BILATERAL SOFT WRIST RESTRAINTS IN PLACE. VSS. TUBE FEEDING AT GOAL RATE OF 25CC/HR. RECTAL TUBE PATENT WITH LIQUID BROWN STOOL. GEORGE PATENT AND DRAINING BLOODY URINE. PAS TO BLE. OSVALDO PICC NOTED. LEFT UPPER EXTREMITY WITH WEEPING EDEMA. WILL REPORT TO DAY SHIFT RN WHEN AVAILABLE.
--- NOTE | 2019-07-09 10:38 | NUR ---
CARE ASSUMED CARE AND REPORT ASSUMED FROM ADRIEL ARMIJO. TRACH SECURED AND VENT SPONTANEOUS 10/5, TV 350, FIO2 50%. LUNG SOUNDS COARSE, RHONCHOROUS, WITH WHEEZING. BUE RESTRAINED SINCE PT IS CONFUSED AND HAS THE POSSIBILITY OF PULLING TRACH OUT. PRECEDEX GTT TURNED OFF AT 0900 THIS AM. PT CONTINUES TO NOT RESPOND TO VERBAL STIMULI; WILL RESPOND TO OCCASIONAL PAINFUL STIMULI. LEVOPHED GTT STARTED THIS MORNING AT START OF SHIFT DUE TO BP 70S/30S. SINCE HAVING PRECEDEX GTT OFF, BP HAS INCREASED AND LEVOPHED IS NOW OFF. DOPHOFF CLOGGED THIS AM AND UNABLE TO CLEAR WITH HOT WATER AND SODA. DOPHOFF REMOVED AND NGT INSERTED. TUBE FEEDINGS CONTINUED AT GOAL RATE. WILL CONTINUE TO MONITOR.
--- NOTE | 2019-07-09 11:52 | NUR ---
REASSESSMENT PT REMAINS ON VENT SPONTANEOUS 03/06, TV 350, FIO2 50%. TRACH REMAINS SECURE. SPUTUM SAMPLE SENT TO LAB; SLIGHLTLY BLOODY AT THIS TIME. LUNG SOUNDS REMAIN COARSE, RHONCHOROUS AND WHEEZY IN ALL [place], WITH RR 30S. SINUSTACH, HR 100-110. LEVOPHED GTT OFF; PRECEDEX GTT OFF. TOLERATING TF AT GOAL RATE. WILL CONTINUE TO MONITOR.
--- NOTE | 2019-07-09 16:00 | NUR ---
REASSESSMENT PT NOT RESPONDING TO PAINFUL OR VERBAL STIMULI. REMAINS OFF ALL SEDATION. TRACH SECURED AND VENT SPONTANEOUS 10/5, TV 350, FIO2 45%. LUNG SOUNDS REMAIN COARSE, RHONCHOROUS, AND WHEEZY. NSR, HR 90S. BP WNL. WILL CONTINUE TO MONITOR.
--- NOTE | 2019-07-09 18:03 | NUR ---
SHIFT SUMMARY PT MINIMALLY RESPONSIVE ENTIRE SHIFT. REMAINS ON VENTILATOR, SPONTANEOUS 03/06. LUNG SOUNDS COARSE ENTIRE SHIFT. RESTRAINTS REMOVED THIS AFTERNOON SINCE PT IS NOT MOVING ARMS. LACTULOSE DISCONTINUED WITH PT HAVING PERSISTENT DIARRHEA. DOPHOFF REMOVED AND NGT INSERTED. LEVOPHED INFUSED FOR FEW HOURS IN AM BUT IS NOW OFF. PRECEDEX GTT OFF SINCE 0900. PT TURNED Q2H AND HOB ELEVATED. WILL GIVE BEDSIDE, HANDOFF REPORT TO OSBALDO ARMIJO.
--- NOTE | 2019-07-09 19:03 | NUR ---
ASSUME CARE PT PRESENTS IN BED, NOT VERY RESPONSIVE. OPENS EYES, BUT NO TRACKING. RESPONDS TO PAINFUL STIMULI. TRACH AND VENT ON SPONTANEOUS SETTINGS 10/5, 350/40%. WILL BE ON AC TONIGHT. WEEPY L ARM. TEMP 99., GEORGE CATHETER PATENT AND DRAINIGN TO GRAVITY. IVF TKO. WILL CONTINUE TO MONITOR.
--- NOTE | 2019-07-10 03:46 | NUR ---
NEURO STATUS PT OPENS EYES TO NOXIOUS STIMULI, BUT DOES NOT FOLLOW COMMANDS OR TRACK. SHE IS UNRESTRAINED, BUT NOT PULLING AT TUBES/LINES/TRACH. PATIENT GRIMACES TO PAIN, BUT NO WITHDRAWAL.
[2019-07-10 03:51] LABS: BASOPHILS ABSOLUTE AUTO 0.01 K/mm3 (0.00-0.23); BASOPHILS PERCENT AUTO 0 % (0-2); EOSINOPHILS PERCENT AUTO 0 % (0-6); Hemoglobin 8.6 g/dL (11.5-16.0); IMMATURE GRAN ABSOLUTE AUTO 0.08 K/mm3 (0.00-0.10); IMMATURE GRAN PERCENT AUTO 2 % (0-1); LYMPHOCYTES ABSOLUTE AUTO 0.33 K/mm3 (0.84-5.20); LYMPHOCYTES PERCENT AUTO 7 % (21-46); MONOCYTES ABSOLUTE AUTO 0.17 K/mm3 (0.16-1.47); MONOCYTES PERCENT AUTO 3 % (4-13); Mean Corpuscular HGB 30.3 pg (26.0-34.0); Mean Corpuscular HGB Conc 31.9 g/dL (31.5-36.5); Mean Corpuscular Volume 95 fL (80-100); Mean Platelet Volume 12.5 fL (9.1-12.4); NEUTROPHILS ABSOLUTE AUTO 4.38 K/mm3 (1.96-9.15); NEUTROPHILS PERCENT AUTO 88 % (41-73); Platelet Count 58 K/mm3 (150-400); RDW Coefficient Variation 17.7 % (11.7-14.2); Red Blood Cell Count 2.84 M/mm3 (3.80-5.20); White Blood Cell Count 4.97 K/mm3 (4.00-11.30)
[2019-07-10 04:04] LABS: Alanine Aminotransfer (ALT/SGP 35 U/L (12-78); Albumin, Blood 3.1 g/dL (3.4-5.0); Albumin/Globulin Ratio 1.1 (0.8-1.8); Alk Phos 254 U/L (50-136); Anion Gap 5 mmol/L (6-16); Aspartate Aminotrans (AST/SGOT 31 U/L (12-37); Bilirubin, Total 2.2 mg/dL (0.1-1.0); Blood Urea Nitrogen 47 mg/dL (8-24); Bun/Creatinine Ratio 85.3 (12.0-20.0); CO2, Blood 22 mmol/L (21-32); Calcium, Blood 8.6 mg/dL (8.5-10.1); Chloride, Blood 119 mmol/L (98-108); Creatinine, Blood 0.55 mg/dL (0.40-1.00); Globulin, Blood 2.7 g/dL (2.2-4.0); Glomerular Filtration Rate >60 (60-); Glucose, Blood 315 mg/dL (70-99); Magnesium, Blood 2.6 mg/dL (1.6-2.4); Phosphorus, Blood 2.1 mg/dL (2.5-4.9); Potassium, Blood 3.7 mmol/L (3.5-5.5); Sodium, Blood 146 mmol/L (136-145); Total Protein, Blood 5.8 g/dL (6.4-8.2)
[2019-07-10 04:42] LABS: PCO2 Arterial 33.7 mmHg (35-45); PO2 Arterial 69.8 mmHg (80-100)
--- NOTE | 2019-07-10 05:48 | NUR ---
SHIFT SUMMARY PATIENT REMAINS LETHARGIC, OPENS EYES TO NOXIOUS STIMULI AND WILL GRIMACE WITH PAIN, BUT NOT WITHDRAWING, LOCALIZING, OR FOLLOWING COMMANDS. PATIENT REMAINED IN SPONTANOUS VENT SETTINGS WITH 350TV, 45%. LUNGS ARE COARSE AND WHEEZY WITH RHONCHI. HYPOACTIVE BOWEL SOUNDS, TOTAL BM 175ML FOR SHIFT. TOTAL URINE 900ML. AFEBRILE THROUGH NIGHT. VSS WITH MAP>60. PITTING EDEMA TO BUE, +1 EDEMA TO BLE. RECTAL TUBE IN PLACE DRAINING BROWNISH YELLOW LIQUID BM. KPHOS BEING REPLACED FOR k: 3.7 AND PO4: 2.1. NO ACUTE EVENTS OVERNIGHT. WILL CONTINUE TO MONITOR.
--- NOTE | 2019-07-10 07:00 | NUR ---
Recieved report from Lor ARMIJO. Patient sitting up in bed with HOB at <20 degrees. She is intubated and no sedation with trach. Vent settings Spontaneous mode, PS 10, TV 300, FiO2 30%, Peep 5.0 and sats 30%. She opens eyes and moves mouth as well as pupilary response . She is course with expiritory wheezes and diminished in bases. She does not track or rerspond to verbal stimuli, only painful stimuli. PICC line in OSVALDO and dressing intact and site WNL's. It is infusing K Phos at 126ml/hr and NS at TKO. She has 16Fr temp noe with clear james urine. She also has rectal tube with green granulated thin liquid. SCD's bilaterally in place. She has piercing in center bottom lip. She has NG toright nares with Pivot 1.5 to goal rate at 25ml/hr and 30 ml watter flushes Q4.
--- NOTE | 2019-07-10 09:32 | NUR ---
Cleaned trach and changed split dressing, suctions thick creamy secretions. AM meds through NG and no residual. VSS see EMR. Increased fiO2 to 40% as sats decreased during care. She remains out of restraints and no extremity movement. She opens eyes and responds to painful stimuli and does not track or follow commands.
--- NOTE | 2019-07-10 14:33 | NUR ---
No significant changes, no vent changes. Sats 95%, no neuro changes. Good urine output and rectal tube continues to drain small amount of reen fluid. VSS see EMR
--- NOTE | 2019-07-10 16:33 | NUR ---
Patient continues on spontaneous mode, same settings and continues to sat mid 90%'s. No new neuro changes. VSS see EMR.
--- NOTE | 2019-07-10 17:57 | NUR ---
Patient currently spontaneous mode, PS 8, FiO2 40% PeeP 5.0 and 96%. NS TKO in PICC OSVALDO. Temp noe in place with 1150 clear james urine and 400 liquid stool that has turned chambers. SCD in place to bilateral calves. NG continues Pivot 1.5 25ml/hr and 30ml water flush q4. No neuro changes. VSS see EMR.
--- NOTE | 2019-07-10 19:05 | NUR ---
assume care PATIENT IN BED, OPENS EYES TO SOUND. GRIMACES FROM PAIN, BUT NO EXTREMITY MOVEMENT. PATIENT ON SPONTANEOUS VENT SETTINGS WITH 8/15/350/40%. TRACHED. LUNG SOUNDS COARSE WITH EXPIRATORY WHEEZES AND RHONCHI. BOWEL TONES HYPOACTIVE. PATIENT HAS RECTAL TUBE DRAINING YELLOWISH BROWN LIQUID BM. GEORGE CATHETER PATENT AND FLOWING TO GRAVITY. HANDS WITH PITTING EDEMA, BLE +1 EDEMA. HANDS ELVEATED ABOVE HEART LEVEL TO REDUCE EDEMA. VSS. TUBE FEEDS GOING AT 25ML/HR WITH q4H FLUSHES OF 30ML WATER. PULSES STRONG THROUGHOUT.FAMILY AT BEDSIDE. WILL COTNINUE TO MONITOR.
[2019-07-11 03:23] LABS: BASOPHILS PERCENT AUTO 0 % (0-2); EOSINOPHILS PERCENT AUTO 0 % (0-6); Hematocrit 27.4 % (33.0-51.0); Hemoglobin 8.5 g/dL (11.5-16.0); IMMATURE GRAN ABSOLUTE AUTO 0.03 K/mm3 (0.00-0.10); IMMATURE GRAN PERCENT AUTO 1 % (0-1); LYMPHOCYTES ABSOLUTE AUTO 0.31 K/mm3 (0.84-5.20); LYMPHOCYTES PERCENT AUTO 6 % (21-46); MONOCYTES ABSOLUTE AUTO 0.33 K/mm3 (0.16-1.47); MONOCYTES PERCENT AUTO 6 % (4-13); Mean Corpuscular HGB 29.8 pg (26.0-34.0); Mean Corpuscular Volume 96 fL (80-100); Mean Platelet Volume 12.7 fL (9.1-12.4); NEUTROPHILS ABSOLUTE AUTO 4.94 K/mm3 (1.96-9.15); NEUTROPHILS PERCENT AUTO 88 % (41-73); Platelet Count 78 K/mm3 (150-400); RDW Coefficient Variation 18.3 % (11.7-14.2); RDW Standard Deviation 63.2 fL (35.1-46.3); Red Blood Cell Count 2.85 M/mm3 (3.80-5.20); White Blood Cell Count 5.61 K/mm3 (4.00-11.30)
[2019-07-11 03:39] LABS: Anion Gap 6 mmol/L (6-16); Blood Urea Nitrogen 52 mg/dL (8-24); Bun/Creatinine Ratio 103.6 (12.0-20.0); CO2, Blood 22 mmol/L (21-32); Calcium, Blood 8.7 mg/dL (8.5-10.1); Chloride, Blood 125 mmol/L (98-108); Glomerular Filtration Rate >60 (60-); Glucose, Blood 346 mg/dL (70-99); Magnesium, Blood 2.4 mg/dL (1.6-2.4); Phosphorus, Blood 3.5 mg/dL (2.5-4.9); Potassium, Blood 3.4 mmol/L (3.5-5.5); Sodium, Blood 153 mmol/L (136-145)
--- NOTE | 2019-07-11 07:30 | NUR ---
Received in room report from Lor ARMIJO. Patient lying on left side with HOB at <20 degrees. She is trached with 6.o and is on vent setting spon. mode PS 8 FiO2 40% Peep 5.0 and sats 97%. She has PICC line in OSVALDO dressing intact and site WNL and all ports flushed and new caps and is infusing NS TKO. She has 16Fr Lagunas draining to gravity clear james colored urine. She also has rectal tube with chambers colored output. She has 2-3 + distal edema. She moves her head, mouth , eye and flinches to pupil touch. Re retract to painful stimuli. She has piercings to lower lip and right nares. She has NG to right nares and has Pivot 1.5 TF infusing at 25ml/hr and 30ml water flushes Q4.
--- NOTE | 2019-07-11 09:30 | NUR ---
Dr Aguilar by rich and will be backto assess. Oral care and am care done. AM med through NG and IV. No residuals this am. VSS see EMR, repositioned. No neuro, gtt, vent changes
--- NOTE | 2019-07-11 11:30 | NUR ---
Dr Aguilar in with patient and no new acute orders. No neuro, gtt, or vent setting changes. VSS see EMR.
--- NOTE | 2019-07-11 13:30 | NUR ---
Patient resting and Dr Forbes and will leave care to finishing frame runner. No changes in Neuro, gtt's, and vent setting. VS remain stable.
--- NOTE | 2019-07-11 17:06 | NUR ---
No changes with patient. has been by and will be back later. RT in bi-hour and no changes and she sats mid 90% all day long. states he sees neuro changes but does not show when in room. He states she takes a long time to recover. Q2 positioning. oral care and trach care done. VS remains stable with little change. There has been 20 point chnage systolically all day.
--- NOTE | 2019-07-11 21:03 | NUR ---
PATIENT RESTING IN BED WITH EYES OPEN, SHACKING HEAD BACK AND FORTH, NOT FOLLOWING DIRECTIONS. AT TIMES APPEARS TO TRACK WITH HER EYES. TRACH IN PLACE MIDLINE WITH VENT SET AT SPONT TV 350 PEEP 5 FIO2 40% . NG IN PLACE WITH CONTINUOUS FEEDING AT GOAL RATE OF 25/HR. FLEXI-SEAL RECTAL TUBE CONTINUES TO DRAIN LIQUID BROWN/GREEN STOOL.
[2019-07-12 03:51] LABS: BASOPHILS PERCENT AUTO 0 % (0-2); EOSINOPHILS PERCENT AUTO 0 % (0-6); Hematocrit 30.2 % (33.0-51.0); IMMATURE GRAN ABSOLUTE AUTO 0.04 K/mm3 (0.00-0.10); IMMATURE GRAN PERCENT AUTO 1 % (0-1); LYMPHOCYTES ABSOLUTE AUTO 0.27 K/mm3 (0.84-5.20); LYMPHOCYTES PERCENT AUTO 6 % (21-46); MONOCYTES PERCENT AUTO 8 % (4-13); Mean Corpuscular HGB 29.4 pg (26.0-34.0); Mean Corpuscular HGB Conc 29.8 g/dL (31.5-36.5); Mean Platelet Volume 11.9 fL (9.1-12.4); NEUTROPHILS ABSOLUTE AUTO 4.21 K/mm3 (1.96-9.15); NEUTROPHILS PERCENT AUTO 86 % (41-73); Platelet Count 70 K/mm3 (150-400); RDW Coefficient Variation 18.7 % (11.7-14.2); RDW Standard Deviation 66.9 fL (35.1-46.3); Red Blood Cell Count 3.06 M/mm3 (3.80-5.20); White Blood Cell Count 4.92 K/mm3 (4.00-11.30)
[2019-07-12 03:54] LABS: Mean Corpuscular Volume 99 fL (80-100)
[2019-07-12 04:05] LABS: Magnesium, Blood 2.6 mg/dL (1.6-2.4)
[2019-07-12 04:06] LABS: Anion Gap 5 mmol/L (6-16); Blood Urea Nitrogen 52 mg/dL (8-24); Bun/Creatinine Ratio 96.5 (12.0-20.0); CO2, Blood 23 mmol/L (21-32); Calcium, Blood 9.3 mg/dL (8.5-10.1); Chloride, Blood 131 mmol/L (98-108); Creatinine, Blood 0.54 mg/dL (0.40-1.00); Glomerular Filtration Rate >60 (60-); Glucose, Blood 339 mg/dL (70-99); Phosphorus, Blood 2.3 mg/dL (2.5-4.9); Potassium, Blood 3.7 mmol/L (3.5-5.5); Sodium, Blood 159 mmol/L (136-145)
--- NOTE | 2019-07-12 06:06 | NUR ---
SUMMARY PATIENT REMAINS AWAKE T/O NIGHT, CONTINUES TO NOT FOLLOW DIRECTIONS. SLIGHT MOVEMENT SEEN IN FEET WITH PAINFUL STIMULI, NO MOVEMENT SEEN IN HANDS OR ARMS. TRACH REMAINS IN PLACE MIDLINE WITH VENT ON SPONT T/O NIGHT. PIVIT 1.5 CONTINUES VIA NG AT GOAL RATE OF 25 CC/HR, WITH VERY LITTLE RESIDUAL. FLEXI-SEAL RECTAL TUBE REMAINS IN PLACE DRAINING LIQUID BROWN STOOL.
--- NOTE | 2019-07-12 10:53 | NUR ---
0800 PT HAS NO PURPOSEFUL GAZE AND NOT FOLLOWING WITH EYES. PT WILL GRIMIZE WITH NOXIOUS STIMULI AND ATTEMPTS TO MOVE EXT BUT MINIMALLY SO. PT IS NOT RESTRAINED AT THIS TIME. VENT SETTING SPONT PS 8 40%. HAVE SPOKE WITH AND GIVEN UPDATE, HE WILL BE IN LATE.
--- NOTE | 2019-07-12 15:00 | NUR ---
PT RR HAS BEEN 18-24 THIS SHIFT WITH PS DEC EARLIER PER DR CERVANTES TO 5 AND FIO2 DOWN TO 30 BUT THEN BACK UP TO 35%. PT VS NOTE.
--- NOTE | 2019-07-12 16:20 | NUR ---
PT CHANGED TO HEATED ANIYA TRACH COLAR AT 50% PER RT AND WILL BE TITRATED DOWN PER RT ABLE.
--- NOTE | 2019-07-12 16:54 | NUR ---
No family present at time of visit. Antonina looked at me when I spoke to her, but could not focus. She does not appear lucid. Prayer provided at bedside. I will remain available to pt and family. Both are well known to me.
--- NOTE | 2019-07-12 17:23 | NUR ---
CALL WAS NOT PLACED TO DR HSS HAS BEEN STARTED AND PT HAS BEEN RECIEVING EXTRA D5W VIA RIDER, AND CBG IS ONLY MARGINALLY ABOE TREND AT THIS POINT. TREATED INDICATED.
--- NOTE | 2019-07-12 19:52 | NUR ---
PT HAS TOLERATED T-PIECE COLAR AND SATS NOTED ON 40%. CBG NOTED AND COVERED. NEURO STATUS HAS NOT CHANGED T/O THE COARCE OF THE DAY. I/O NOTED AND D5W REMAINS AT 80 ML TO COMPLETION OF THIS LITER.
--- NOTE | 2019-07-12 21:13 | NUR ---
PATIENT RESTING IN BED SHACKING HEAD BACK AND FORTH, OPEN AND CLOSING MOUTH SPONTANEOUSLY. NOT FOLLOWING DIRECTIONS. PULLING FEET AND LEGS BACK TO PAINFUL STIMULI, NO MOVEMENT SEEN IN HANDS OR ARMS. TRACH IN PLACE WITH T-PIECE IN PLACE WITH OXYGEN AT 40%. NG IN PLACE WITH TUBE FEEDING AT GOAL AND FREE WATER 170 CC Q4HR. FAMILY AT BEDSIDE PROVIDING GOOD SUPPORT.
--- NOTE | 2019-07-13 01:23 | NUR ---
PATIENT SHACKING HEAD BACK AND FORTH AND OPENING MOUTH WIDE, CAUSING HER CHIN TO DISLODGE HER T-PIECE FROM HER TRACH. RT CALLED AND ATTEMPT TO POSITION TUBING AND TRACH SUPPORTED AND PROTECTED WITH TOWEL AND WASHCLOTH PLACEMENT
[2019-07-13 04:35] LABS: BASOPHILS ABSOLUTE AUTO 0.01 K/mm3 (0.00-0.23); BASOPHILS PERCENT AUTO 0 % (0-2); EOSINOPHILS PERCENT AUTO 0 % (0-6); Hematocrit 32.5 % (33.0-51.0); Hemoglobin 9.7 g/dL (11.5-16.0); IMMATURE GRAN ABSOLUTE AUTO 0.17 K/mm3 (0.00-0.10); IMMATURE GRAN PERCENT AUTO 3 % (0-1); LYMPHOCYTES PERCENT AUTO 5 % (21-46); MONOCYTES ABSOLUTE AUTO 0.48 K/mm3 (0.16-1.47); MONOCYTES PERCENT AUTO 8 % (4-13); Mean Corpuscular HGB 29.8 pg (26.0-34.0); Mean Corpuscular HGB Conc 29.8 g/dL (31.5-36.5); Mean Corpuscular Volume 100 fL (80-100); Mean Platelet Volume 11.4 fL (9.1-12.4); NEUTROPHILS ABSOLUTE AUTO 5.06 K/mm3 (1.96-9.15); NEUTROPHILS PERCENT AUTO 84 % (41-73); NRBC ABSOLUTE 0.02 K/mm3 (0.00-0.02); NRBC Auto 0.3 /100 WBC (0.0-0.2); Platelet Count 72 K/mm3 (150-400); RDW Coefficient Variation 18.7 % (11.7-14.2); Red Blood Cell Count 3.26 M/mm3 (3.80-5.20); White Blood Cell Count 6.02 K/mm3 (4.00-11.30)
[2019-07-13 05:02] LABS: Alanine Aminotransfer (ALT/SGP 299 U/L (12-78); Albumin, Blood 3.1 g/dL (3.4-5.0); Albumin/Globulin Ratio 0.9 (0.8-1.8); Alk Phos 328 U/L (50-136); Anion Gap 4 mmol/L (6-16); Aspartate Aminotrans (AST/SGOT 398 U/L (12-37); Bilirubin, Total 3.5 mg/dL (0.1-1.0); Blood Urea Nitrogen 47 mg/dL (8-24); Bun/Creatinine Ratio 86.6 (12.0-20.0); CO2, Blood 23 mmol/L (21-32); Calcium, Blood 9.5 mg/dL (8.5-10.1); Chloride, Blood 134 mmol/L (98-108); Creatinine, Blood 0.54 mg/dL (0.40-1.00); Globulin, Blood 3.3 g/dL (2.2-4.0); Glomerular Filtration Rate >60 (60-); Glucose, Blood 319 mg/dL (70-99); Potassium, Blood 3.5 mmol/L (3.5-5.5); Sodium, Blood 161 mmol/L (136-145); Total Protein, Blood 6.4 g/dL (6.4-8.2)
--- NOTE | 2019-07-13 06:30 | NUR ---
SUMMARY PATIENT REMAINING WITH T-PIECE IN PLACE T/O NIGHT TO TRACH. PATIENT CONTINUES TO SHACK HEAD BACK AND FORTH, AT TIMES DISLODGING T-PIECE OFF TRACH. TRACH REMAINS MIDLINE SUCTIONING WHITE TO COLMENARES SPUTUM AND OCCASIONAL BLOOD STREAK SEEN. PATIENT CONTINUES TO NOT FOLLOW DIRECTIONS, MOVING FEET TO STIMULI AND OCCASIONALLY HAVE SEEN MOVEMENT TO SHOULDERS. RECTAL TUBE CONTINUES TO DRAIN LIQUID BROWN STOOL. NG REMAINS IN PLACE, RETAPED DURING THE NIGHT TO KEEP NG SECURED.
--- NOTE | 2019-07-13 08:00 | NUR ---
INITIAL ASSESMENT PT OPENS EYES SPONT, WILL NOT FOLLOW COMMANDS AND WITHDRAWS FROM PAINFUL PERIPHERAL STIM AND LOCALIZES TO CENTRAL PAINFUL STIM. PUPILS EQUAL WILL NOT FOCUS OR TRACK, MINIMAL SPOMT EXTREMITY MOVEMENT, NO NON VERBAL INDICATIONS OF PAIN. VSS, TMAX 100.3, BILAT UPPER AND LOWER EXTREM EDEMA AND ELEVATED ON PILLOWS. PALP PULSES T/O AND D5 AT 100. TOLERATING T PEICE BUT TACHY AND SHALLOW BREATHING, TRACH INTACT AND SUTURED WITH MINIMAL DRAINAGE. COURSE AND DIM BILAT AND SMALL YELLOW THICK TRACH SECREATIONS. TOLERATING TF, LIQUID BROWN STOOL VIA FMS, ABD SOFT ACITES ROUND AND OBESE. UO ADEQUATE VIA GEORGE. WILL CONT TO MONITOR
--- NOTE | 2019-07-13 11:30 | NUR ---
BLOOD GLUCOSE BEING CHECKED BEDSIDE. 1ST RESULT WAS "HI" DUE TO IVF NOT BEING STOPPED DURING DRAW. IVF STOPPED, LINE FLUSHED PRIOR TO 2ND DRAW. RESULT 312 WHICH FALLS IN LINE WITH PT TRENDS. PRIMARY RN MADE AWARE.
--- NOTE | 2019-07-13 16:00 | NUR ---
PT UPDATE PT REMAINS STABLE ON T PEICE AND TOLERATING WELL WITH COURSE AND DIM LUNG SOUNDS BILAT. TACHY AND HTN WITH METOPROLOL STARTED VIA NG TUBE. TOLERATING TFDD AT THIS TIME WITH 250 FREE WATER BOLUS Q4 AND SODIUM SLOWLY DECLINING. NEURO EXAM REMAINS UNCHANGED. UO ADEQUATE. WILL CONT TO MONITOR
[2019-07-13 16:31] LABS: Alanine Aminotransfer (ALT/SGP 291 U/L (12-78); Alk Phos 331 U/L (50-136); Anion Gap 2 mmol/L (6-16); Aspartate Aminotrans (AST/SGOT 293 U/L (12-37); Bilirubin, Total 3.9 mg/dL (0.1-1.0); Blood Urea Nitrogen 47 mg/dL (8-24); Bun/Creatinine Ratio 105.9 (12.0-20.0); CO2, Blood 23 mmol/L (21-32); Calcium, Blood 9.3 mg/dL (8.5-10.1); Chloride, Blood 134 mmol/L (98-108); Creatinine, Blood 0.44 mg/dL (0.40-1.00); Globulin, Blood 3.1 g/dL (2.2-4.0); Glomerular Filtration Rate >60 (60-); Glucose, Blood 248 mg/dL (70-99); Potassium, Blood 3.9 mmol/L (3.5-5.5); Sodium, Blood 159 mmol/L (136-145); Total Protein, Blood 6.1 g/dL (6.4-8.2)
--- NOTE | 2019-07-13 17:51 | NUR ---
Routine spiritual care note: Pt and spouse are very well-known to me from years of hospitalizations for Antonina. Ed wanted prayer at bedside and I happily complied. He has a strong sj and is waiting for a clear path. He also beleives Antonina is geting stronger and more lucid. While I was present, Antonina moved her head from side to side, opened and closed eyes randomly. Antonina and Ed are raising grandchildren and great grandchildren as well as proviing housing for their adult children. He is clearly overwhelmed. Ed seems to understand that Antonina has never been "this sick before" and states he has placed her in God's hands. "If God wants to take her, he will." Encouraged Ed to look for indicators of path--allowing Antonina's body/illnesses to guide him. He seemed to like this idea. Ed is emotionally/spiritually processing that he may have to let nature take it's course. We have an easy rapport and established trust. Piping Supervisor and comfort provided to good effect. I will remain available.
--- NOTE | 2019-07-13 19:26 | NUR ---
PATIENT RESTING QUIETLY, OPENS EYES TO SLIGHT STIMULI, OPEN AND CLOSING MOUTH SPONTANEOUSLY. MOVES LEGS SLIGHTLY TO NOXIOUS STIMULI, NO MOVEMENT SEEN IN ARMS OR HANDS. PATIENT NOT FOLLOWING DIRECTIONS. TRACH IN PLACE AND MIDLINE WITH T-PIECE IN PLACE WITH FIO2 35%. NG IN PLACE WITH TUBE FEEDING AT GOAL RATE OF 25CC/HR WITH 250CC WATER Q4HR. RECTAL TUBE DRAINING LIQUID BROWN STOOL. PATIENTS AT BEDSIDE PROVIDING GOOD SUPPORT.
--- NOTE | 2019-07-14 00:28 | NUR ---
PATIENT HAVING BLOODY ORAL SECRETIONS, SUCTIONING BRIGHT RED BLOOD FROM BACK OF THROAT. TRACH REMAINS IN PLACE AND MIDLINE, SUCTIONING SMALL AMT WHITE SPUTUM. WILL CONTINUE TO MONITOR FOR BLEEDING
[2019-07-14 04:36] LABS: BASOPHILS ABSOLUTE AUTO 0.02 K/mm3 (0.00-0.23); BASOPHILS PERCENT AUTO 0 % (0-2); EOSINOPHILS ABSOLUTE AUTO 0.01 K/mm3 (0.00-0.68); EOSINOPHILS PERCENT AUTO 0 % (0-6); Hematocrit 35.2 % (33.0-51.0); Hemoglobin 10.5 g/dL (11.5-16.0); IMMATURE GRAN ABSOLUTE AUTO 0.21 K/mm3 (0.00-0.10); IMMATURE GRAN PERCENT AUTO 2 % (0-1); LYMPHOCYTES ABSOLUTE AUTO 0.81 K/mm3 (0.84-5.20); LYMPHOCYTES PERCENT AUTO 7 % (21-46); MONOCYTES PERCENT AUTO 10 % (4-13); Mean Corpuscular HGB 29.9 pg (26.0-34.0); Mean Corpuscular HGB Conc 29.8 g/dL (31.5-36.5); Mean Corpuscular Volume 100 fL (80-100); Mean Platelet Volume 12.5 fL (9.1-12.4); NEUTROPHILS ABSOLUTE AUTO 9.87 K/mm3 (1.96-9.15); NEUTROPHILS PERCENT AUTO 81 % (41-73); NRBC ABSOLUTE 0.05 K/mm3 (0.00-0.02); NRBC Auto 0.4 /100 WBC (0.0-0.2); Platelet Count 104 K/mm3 (150-400); RDW Coefficient Variation 18.8 % (11.7-14.2); RDW Standard Deviation 67.2 fL (35.1-46.3); Red Blood Cell Count 3.51 M/mm3 (3.80-5.20); White Blood Cell Count 12.12 K/mm3 (4.00-11.30)
[2019-07-14 04:57] LABS: Alanine Aminotransfer (ALT/SGP 273 U/L (12-78); Albumin, Blood 2.8 g/dL (3.4-5.0); Albumin/Globulin Ratio 0.9 (0.8-1.8); Alk Phos 333 U/L (50-136); Anion Gap 0 mmol/L (6-16); Aspartate Aminotrans (AST/SGOT 240 U/L (12-37); Bilirubin, Total 4.6 mg/dL (0.1-1.0); Blood Urea Nitrogen 45 mg/dL (8-24); Bun/Creatinine Ratio 87.9 (12.0-20.0); CO2, Blood 27 mmol/L (21-32); Calcium, Blood 8.9 mg/dL (8.5-10.1); Chloride, Blood 131 mmol/L (98-108); Creatinine, Blood 0.51 mg/dL (0.40-1.00); Globulin, Blood 3.1 g/dL (2.2-4.0); Glomerular Filtration Rate >60 (60-); Glucose, Blood 172 mg/dL (70-99); Potassium, Blood 3.9 mmol/L (3.5-5.5); Sodium, Blood 158 mmol/L (136-145); Total Protein, Blood 5.9 g/dL (6.4-8.2)
--- NOTE | 2019-07-14 08:00 | NUR ---
INITIAL ASSESMENT PT OPENS EYES SPONT, WILL NOT FOLLOW COMMANDS AND WITHDRAWS FROM PAINFUL PERIPHERAL STIM AND LOCALIZES TO CENTRAL PAINFUL STIM. PUPILS EQUAL WILL FOCUS AND TRACK, MINIMAL SPONT EXTREMITY MOVEMENT, NO NON VERBAL INDICATIONS OF PAIN. VSS, TMAX 100.2, BILAT UPPER AND LOWER EXTREM EDEMA AND ELEVATED ON PILLOWS. PALP PULSES T/O AND D5 AT 100. TOLERATING T PEICE BUT TACHY AND SHALLOW BREATHING, TRACH INTACT AND SUTURED WITH MINIMAL DRAINAGE. COURSE AND DIM BILAT AND SMALL THICK COLMENARES TRACH SECREATIONS. TOLERATING TF, LIQUID BROWN STOOL VIA FMS, ABD SOFT ACITES ROUND AND OBESE. UO ADEQUATE VIA GEORGE. WILL CONT TO MONITOR
[2019-07-14 08:46] LABS: International Normalized Ratio 1.85; Prothrombin Time Results 19.1 Sec (9.7-11.5)
--- NOTE | 2019-07-14 18:45 | NUR ---
Prayer at bedside for Antonina. No family present at time of visit. Antonina appears about the same. Non-lucid, but opens eyes to voice. I will remain available.
--- NOTE | 2019-07-14 19:22 | NUR ---
ASSUME CARE SHIFT REPORT FROM ALEKSANDER GUTIERRES. PATIENT IN BED, APPEARS ASLEEP. VSS. TEMP 98.8. TPIECE 35%. TUBE FEEDS AT 35ML/HR (GOAL) OF PIVOT 1.5 WITH 250ML Q3 WATER FLUSHES. RECTAL TUBE PATENT AND DRAINING LIQUID DARK BROWN STOOL. GEORGE CATHETER PATENT AND FLOWING TO GRAVITY, YELLOW URINE.
[2019-07-15 03:58] LABS: Alanine Aminotransfer (ALT/SGP 220 U/L (12-78); Albumin, Blood 2.5 g/dL (3.4-5.0); Albumin/Globulin Ratio 0.9 (0.8-1.8); Alk Phos 345 U/L (50-136); Anion Gap 2 mmol/L (6-16); Aspartate Aminotrans (AST/SGOT 146 U/L (12-37); Bilirubin, Total 3.5 mg/dL (0.1-1.0); Blood Urea Nitrogen 47 mg/dL (8-24); Bun/Creatinine Ratio 88.2 (12.0-20.0); CO2, Blood 25 mmol/L (21-32); Calcium, Blood 8.5 mg/dL (8.5-10.1); Chloride, Blood 127 mmol/L (98-108); Creatinine, Blood 0.53 mg/dL (0.40-1.00); Globulin, Blood 2.8 g/dL (2.2-4.0); Glomerular Filtration Rate >60 (60-); Glucose, Blood 235 mg/dL (70-99); Potassium, Blood 3.8 mmol/L (3.5-5.5); Sodium, Blood 154 mmol/L (136-145); Total Protein, Blood 5.3 g/dL (6.4-8.2)
[2019-07-15 04:09] LABS: BASOPHILS ABSOLUTE AUTO 0.01 K/mm3 (0.00-0.23); BASOPHILS PERCENT AUTO 0 % (0-2); EOSINOPHILS ABSOLUTE AUTO 0.01 K/mm3 (0.00-0.68); EOSINOPHILS PERCENT AUTO 0 % (0-6); Hemoglobin 10.7 g/dL (11.5-16.0); IMMATURE GRAN ABSOLUTE AUTO 0.14 K/mm3 (0.00-0.10); IMMATURE GRAN PERCENT AUTO 1 % (0-1); LYMPHOCYTES ABSOLUTE AUTO 0.76 K/mm3 (0.84-5.20); LYMPHOCYTES PERCENT AUTO 6 % (21-46); MONOCYTES ABSOLUTE AUTO 1.01 K/mm3 (0.16-1.47); MONOCYTES PERCENT AUTO 8 % (4-13); Mean Corpuscular HGB 29.4 pg (26.0-34.0); Mean Corpuscular HGB Conc 29.7 g/dL (31.5-36.5); Mean Corpuscular Volume 99 fL (80-100); NEUTROPHILS PERCENT AUTO 84 % (41-73); NRBC ABSOLUTE 0.07 K/mm3 (0.00-0.02); NRBC Auto 0.6 /100 WBC (0.0-0.2); Platelet Count 61 K/mm3 (150-400); RDW Coefficient Variation 18.6 % (11.7-14.2); RDW Standard Deviation 65.3 fL (35.1-46.3); Red Blood Cell Count 3.64 M/mm3 (3.80-5.20); White Blood Cell Count 12.13 K/mm3 (4.00-11.30)
--- NOTE | 2019-07-15 05:37 | NUR ---
PT STILL NOT FOLLOWING COMMANDS. NO REACTION TO PERIPHERAL PAINFUL STIMULI. NO TRACKING. PUPILS BRISK, ROUND, REACTIVE. LUNGS COARSE WIHT DIMINISHED LOWER LOBES. NO FEVER OVERNIGHT. 1200 URINE OUTPUT FROM GEORGE CATHETER. TWO PIVS INSERTED. BED BATH DONE. VSS. WILL CONTINUE TO MONITOR UNTIL DAY SHIFT REPORT HANDOFF.
--- NOTE | 2019-07-15 08:00 | NUR ---
INITIAT ASSESMENT OPENS EYES SPONT, WILL NOT FOLLOW COMMANDS AND WITHDRAWS FROM PAINFUL PERIPHERAL STIM AND LOCALIZES TO CENTRAL PAINFUL STIM. PUPILS EQUAL. MINIMAL SPONT EXTREMITY MOVEMENT, NO NON VERBAL INDICATIONS OF PAIN. VSS, TMAX 99.5, BILAT UPPER AND LOWER EXTREM EDEMA AND ELEVATED ON PILLOWS. PALP PULSES T/O AND D5 AT 100. TOLERATING T PEICE BUT TACHY AND SHALLOW BREATHING, TRACH INTACT AND SUTURED WITH MINIMAL DRAINAGE. COURSE AND DIM BILAT AND SMALL THICK COLMENARES TRACH SECREATIONS. TOLERATING TF, LIQUID BROWN STOOL VIA FMS, ABD SOFT ACITES ROUND AND OBESE. UO ADEQUATE VIA GEORGE. PT UP IN CHAIR AND TOLERATING WELL.WILL CONT TO MONITOR
--- NOTE | 2019-07-15 18:33 | NUR ---
Met with Antonina's dtr and granddaughter at bedside. Dtr is mentally challenged and blind. She appeared unable to understand pt's illness. Grand-daughter tells me that family beleives pt is improving and will be able to return home and back to her usual self. I did not disuade this notion, but instead focused on gentle beauty counselor and assurance of excellent care/attenion. Offered prayer at bedside with family. [facility] services will remain available.
--- NOTE | 2019-07-15 19:13 | NUR ---
assume care PATIENT IN BED, WILL FROWN TO PAINFUL STIMULI IN BLE. NO RESPONSE TO BUE NOXIOUS STIMULI. NO TRACKING/FOLLOWING COMMANDS. TF GOING AT 25 (GOAL) WITH 250ML H20 FLUSH Q3H. PATIENT EDEMATOUS THROUGHOUT. AFEBRILE. VSS.
[2019-07-16 05:22] LABS: BASOPHILS ABSOLUTE AUTO 0.02 K/mm3 (0.00-0.23); BASOPHILS PERCENT AUTO 0 % (0-2); EOSINOPHILS PERCENT AUTO 7 % (0-6); Hematocrit 35.1 % (33.0-51.0); Hemoglobin 10.6 g/dL (11.5-16.0); IMMATURE GRAN PERCENT AUTO 2 % (0-1); LYMPHOCYTES ABSOLUTE AUTO 0.89 K/mm3 (0.84-5.20); LYMPHOCYTES PERCENT AUTO 8 % (21-46); MONOCYTES ABSOLUTE AUTO 0.88 K/mm3 (0.16-1.47); MONOCYTES PERCENT AUTO 8 % (4-13); Mean Corpuscular HGB 29.8 pg (26.0-34.0); Mean Corpuscular HGB Conc 30.2 g/dL (31.5-36.5); Mean Corpuscular Volume 99 fL (80-100); NEUTROPHILS ABSOLUTE AUTO 8.74 K/mm3 (1.96-9.15); NEUTROPHILS PERCENT AUTO 76 % (41-73); NRBC ABSOLUTE 0.05 K/mm3 (0.00-0.02); NRBC Auto 0.4 /100 WBC (0.0-0.2); Platelet Count 51 K/mm3 (150-400); RDW Coefficient Variation 18.6 % (11.7-14.2); RDW Standard Deviation 63.7 fL (35.1-46.3); Red Blood Cell Count 3.56 M/mm3 (3.80-5.20); White Blood Cell Count 11.53 K/mm3 (4.00-11.30)
[2019-07-16 05:43] LABS: Alanine Aminotransfer (ALT/SGP 219 U/L (12-78); Albumin, Blood 2.3 g/dL (3.4-5.0); Albumin/Globulin Ratio 0.9 (0.8-1.8); Alk Phos 361 U/L (50-136); Anion Gap 6 mmol/L (6-16); Aspartate Aminotrans (AST/SGOT 205 U/L (12-37); Blood Urea Nitrogen 36 mg/dL (8-24); Bun/Creatinine Ratio 84.7 (12.0-20.0); CO2, Blood 23 mmol/L (21-32); Calcium, Blood 8.4 mg/dL (8.5-10.1); Chloride, Blood 120 mmol/L (98-108); Creatinine, Blood 0.43 mg/dL (0.40-1.00); Globulin, Blood 2.6 g/dL (2.2-4.0); Glomerular Filtration Rate >60 (60-); Glucose, Blood 269 mg/dL (70-99); Potassium, Blood 3.2 mmol/L (3.5-5.5); Sodium, Blood 149 mmol/L (136-145); Total Protein, Blood 4.9 g/dL (6.4-8.2)
--- NOTE | 2019-07-16 06:16 | NUR ---
SHIFT SUMMARY PATIENT SLEPT COMFORTABLY THROUGH THE NIGHT. SOME PERIODS OF ALERTNESS. PATIENT IS NOW TRACKING AND FOLLOWING AND SEEMS LIKE SHE IS ATTEMPTING TO FOLLOW COMMANDS. AT ONE POINT, PT NODDED YES TO QUESTION ABOUT PAIN. PT ALSO SMILED AT RN AND RT. MORE LEG MOVEMENT NOTED. STILL NOTHING BUE. PATIENT WITHDRAWS FROM PAIN. AFEBRILE. PULSES STRONG AND PALPABLE. ZAIN HAND EDEMA GREATLY DECREASED. VSS. PT SECRETIONS LESS, STILL THICK AND COLMENARES. TUBE FEEDS CONTINUE AT 25 (GOAL) WITH 250ML H20 FLUSHES Q3H WITH NO RESIDUALS. ADEQUATE URINE OUTPUT. WILL COTNINUE TO MONITOR UNTIL DAY SHIFT REPORT HANDOFF.
--- NOTE | 2019-07-16 08:47 | NUR ---
ASSUMED CARE ASSUMED CARE OF PT AT 0700. REPORT RECEIVED FROM ALEKSANDER CHAMPION. PT AWAKE AND ALERT, TRACKING STAFF AROUND THE ROOM. PT APPEARS TO NOD HEAD/YES NO TO SOME QUESTIONS, MOVING LEGS SLIGHTLY, DOES NOT FOLLOW COMMANDS, NO MOVEMENT NOTED TO ARMS. MONITOR SHOWS SINUS RHYTHM WITH HR 60'S, BP STABLE. PT HAS TRACH WITH T PIECE AND FIO2 21%, LUNG SOUNDS COARSE T/O, SPO2 MID 90'S. NG IN PLACE TO R NARE WITH PIVOT 1.5 TUBE FEEDS AT GOAL OF 25ML/HR AND 250ML H20 FLUSHES Q3H. RECTAL TUBE IN PLACE DRAINING GREEN/BROWN LIQUID STOOL TO GRAVITY. TEMP GEORGE IN PLACE WITH CLEAR HARVINDER URINE DRAINING TO GRAVITY, AFEBRILE. SKIN EDEMATOUS T/O, FRAGILE WITH BRUISING AND SCATTERED ABRASIONS T/O. OSVALDO PICC LINE IN PLACE WITH D5W INFUSING AT 100ML/HR. PT UP TO CHAIR WITH LIFT THIS A.M. WILL CONTINUE TO MONITOR PT CLOSELY.
--- NOTE | 2019-07-16 14:33 | NUR ---
DR. AMINA HUYNH ROUNDED ON PT. DISCUSSED PT CONDITION AND PLAN OF CARE WITH AT BEDSIDE. TO HAVE A CONVERSATION WITH CHILDREN ABOUT PLAN OF CARE, CODE STATUS, ETC AND RECONVENE TOMORROW. PLAN TO DISCONTINUE IV FLUIDS AND LACTULOSE AND GIVE A DOSE OF LASIX. CONTINUE FREE WATER THROUGH NG TUBE. PLAN TO CHANGE LOVENOX TO SUBQ HEPARIN.
--- NOTE | 2019-07-16 19:30 | NUR ---
[place] of Care: Care assumed at 1900hr. Patient appears alert, but not following any commands. Opens eyes spontaneously, occasionally tracking staff, turning head [id number]. Minimal gross movement of all extremities. Trach, [place] 6.[address], with t-peice at 7LPM, 21% FiO2, O2-94%. No s/s of pain or discomfort, other than some facial grimace with repositioning. PICC line to OSVALDO patent and intact. Temp-probe noe patent and intact, draining clear james urine. Peripheral IV's to bilateral hands patent and intact. Will continue to monitor for pain, comfort, safety.
[2019-07-17 04:21] LABS: BASOPHILS ABSOLUTE AUTO 0.02 K/mm3 (0.00-0.23); BASOPHILS PERCENT AUTO 0 % (0-2); EOSINOPHILS ABSOLUTE AUTO 0.58 K/mm3 (0.00-0.68); EOSINOPHILS PERCENT AUTO 7 % (0-6); Hemoglobin 9.9 g/dL (11.5-16.0); IMMATURE GRAN ABSOLUTE AUTO 0.12 K/mm3 (0.00-0.10); IMMATURE GRAN PERCENT AUTO 1 % (0-1); LYMPHOCYTES ABSOLUTE AUTO 0.77 K/mm3 (0.84-5.20); LYMPHOCYTES PERCENT AUTO 9 % (21-46); MONOCYTES ABSOLUTE AUTO 0.71 K/mm3 (0.16-1.47); MONOCYTES PERCENT AUTO 8 % (4-13); Mean Corpuscular HGB Conc 30.9 g/dL (31.5-36.5); Mean Corpuscular Volume 97 fL (80-100); NEUTROPHILS ABSOLUTE AUTO 6.54 K/mm3 (1.96-9.15); NEUTROPHILS PERCENT AUTO 75 % (41-73); NRBC ABSOLUTE 0.03 K/mm3 (0.00-0.02); NRBC Auto 0.3 /100 WBC (0.0-0.2); RDW Coefficient Variation 19.7 % (11.7-14.2); RDW Standard Deviation 61.3 fL (35.1-46.3); White Blood Cell Count 8.74 K/mm3 (4.00-11.30)
[2019-07-17 04:23] LABS: Platelet Count 43 K/mm3 (150-400)
[2019-07-17 04:33] LABS: International Normalized Ratio 1.73; Prothrombin Time Results 17.9 Sec (9.7-11.5)
[2019-07-17 04:53] LABS: Alanine Aminotransfer (ALT/SGP 166 U/L (12-78); Albumin, Blood 2.1 g/dL (3.4-5.0); Albumin/Globulin Ratio 0.8 (0.8-1.8); Alk Phos 352 U/L (50-136); Anion Gap 6 mmol/L (6-16); Aspartate Aminotrans (AST/SGOT 129 U/L (12-37); Bilirubin, Total 3.4 mg/dL (0.1-1.0); Blood Urea Nitrogen 29 mg/dL (8-24); Bun/Creatinine Ratio 61.6 (12.0-20.0); CO2, Blood 24 mmol/L (21-32); Calcium, Blood 8.2 mg/dL (8.5-10.1); Chloride, Blood 118 mmol/L (98-108); Creatinine, Blood 0.47 mg/dL (0.40-1.00); Globulin, Blood 2.5 g/dL (2.2-4.0); Glomerular Filtration Rate >60 (60-); Glucose, Blood 169 mg/dL (70-99); Magnesium, Blood 1.8 mg/dL (1.6-2.4); Phosphorus, Blood 1.2 mg/dL (2.5-4.9); Potassium, Blood 3.1 mmol/L (3.5-5.5); Sodium, Blood 148 mmol/L (136-145); Total Protein, Blood 4.6 g/dL (6.4-8.2); Troponin I 0.039 ng/mL (0.000-0.040)
--- NOTE | 2019-07-17 06:17 | NUR ---
Shift Summary: Patient slept on/off throughout shift. Continues to rouse spontaneously and respond to verbal stimuli, but not following any commands. Improved tracking of staff or family members throughout room as shift progressed. VSS remain stable, O2-94-96% on T-peice with 7LPM, 21% FiO2. No s/s of pain or discomfort, only slight facial grimace with repositioning. PICC line to OSVALDO remains patent and intact, infusing without difficulty. Lagunas cath and rectal tube remain patent and intact. Clear dark yellow urine from [place], and liquid brown stool from rectal tube. Morning labs values showed K+ of 3.1 and phosphorus- 1.2. Call placed to Dr. Mullen and received order for Kphos 30mm IV x1. Patient appears calm and comfortable at this time. Will continue to monitor until report to day shift RN.
--- NOTE | 2019-07-17 07:26 | NUR ---
BEDSIDE REPORT TAKEN AT 0700. PT SLEEPING, APPEARS RESTFUL, VSS. TRACH TO T-COLLAR W 35% FIO2. PLAN: OOB TO CHAIR TOLERATED, MOBILIZE PT, PULM TOILET. KPHOS 30MMOL INFUSING.
--- NOTE | 2019-07-17 09:23 | NUR ---
TRACH CARE COMPLETED AND NEW TRACH COLLAR TIE PLACED W RT ASSIST. PT DOES NOT FOLLOW DIRECTIONS, DOES NOT NOD HEAD WHEN ASKED TOO. PT VERY ALERT THIS AM, FACCIAL EXPRESSIONS ARE LIKE. PT'S EYES WIDEN AND SHE SMILES LARGE, THEN LOOKS AWAY WITH FLAT EXPRESSION. PT DOES GRIMACE WITH TRACH CARE. 10CC RESIDUAL FROM TUBE FEEDING, BT'S HYPERACTIVE. PT UNABLE TO MOVE FINGERS TO DIRECTION, NO SPONT MOVEMENT TO EXTREMITIES NOTED, PT DOES MOVE HEAD WELL. VERY THICK DARK YELLOW SECRETIONS SX'D FROM TRACH. PT PLACED UP IN CHAIR LOOKING OUT WINDOW WITH LIFT.
--- NOTE | 2019-07-17 10:53 | NUR ---
PT EVALUATED PT; WAS NOT ABLE TO WORK W HER PT UNABLE TO FOLLOW COMMANDS. MATTING BRUSHED OUT FROM BACK OF HEAD, HAIR CONDITIONED AND BRAIDED; PT SEEMED TO ENJOY THIS. PT'S CALLED, UPDATE GIVEN.
--- NOTE | 2019-07-17 12:28 | NUR ---
DR HUYNH IN TO SEE PT. PT DOES NOT MOVE EXT SPONT, BUT DOES HAVE NORMAL PLANTAR REFLEX. PT HAS GAG, WEAK COUGH, WEAK SWALLOW. PT DOES NOT FOLLOW DIRECTIONS, EVEN ONES THAT ARE POSSIBLE FOR HER, I.E. STICK TONGUE OUT, CLOSE EYES, TURN HEAD. NEW PIVOT HUNG WITH NEW TUBING, RATE INCREASED TO 35CC/HR PER DIETARY. FREE WATER REMAINS AT 250CC Q 3HRS. PT CONT TO DO WELL UP IN CHAIR. NO OTHER ASSESSMENT CHANGES.
--- NOTE | 2019-07-17 18:27 | NUR ---
PT PLACED BACK IN BED USING LIFT. EXCORIATION NOTED TO BUTTOCKS, BARRIER CREAM APPLIED. NO CHANGE IN ASSESSMENT FROM EARLIER. AT BEDSIDE, SHALOM NUNEZ REVIEWED DR HUYNH HAD SPOKE TO PT'S YESTERDAY. PT'S IS CLEAR ABOUT WISHES; HE DOES NOT WANT PT TO HAVE CPR IF HER HEART SHOULD STOP BUT WANTS TO CONTINUE ALL OTHER CARE. HE IS NOT READY FOR COMFORT CARE AT THIS TIME HE SEE'S SMALL PROGRESS DAILY IN PT.
--- NOTE | 2019-07-17 20:00 | NUR ---
[place] of Care: Care assumed at 1900hr. Patient alert, responding to verbal stimuli, and tracking staff/family throughout room. Continues to not follow any commands. No s/s of pain, discomfort, SOB or dyspnea. Currently on t-peice to trach, with 7LPM, 215 FiO2, spO2-93-94%, VSS. Trach appliance cleansed with sterile water, inner cannula changed yesterday. NG tube to rt nare infusing TF at goal of 35ml/hr, with 250ml H2O flush q3hr. PICC line to OSVALDO patent and intact, infusing without difficulty. Lagunas cath patent and intact, draining clear, dark yellow urine. Appears calm and comfortable, family at bedside. Will continue to monitor.
[2019-07-18 03:55] LABS: BASOPHILS ABSOLUTE AUTO 0.01 K/mm3 (0.00-0.23); BASOPHILS PERCENT AUTO 0 % (0-2); EOSINOPHILS ABSOLUTE AUTO 0.41 K/mm3 (0.00-0.68); EOSINOPHILS PERCENT AUTO 5 % (0-6); Hematocrit 30.3 % (33.0-51.0); Hemoglobin 9.4 g/dL (11.5-16.0); IMMATURE GRAN ABSOLUTE AUTO 0.08 K/mm3 (0.00-0.10); IMMATURE GRAN PERCENT AUTO 1 % (0-1); LYMPHOCYTES ABSOLUTE AUTO 1.18 K/mm3 (0.84-5.20); LYMPHOCYTES PERCENT AUTO 14 % (21-46); MONOCYTES ABSOLUTE AUTO 0.73 K/mm3 (0.16-1.47); MONOCYTES PERCENT AUTO 9 % (4-13); Mean Corpuscular Volume 97 fL (80-100); NEUTROPHILS ABSOLUTE AUTO 6.08 K/mm3 (1.96-9.15); NEUTROPHILS PERCENT AUTO 72 % (41-73); RDW Coefficient Variation 20.8 % (11.7-14.2); RDW Standard Deviation 64.5 fL (35.1-46.3); Red Blood Cell Count 3.13 M/mm3 (3.80-5.20); White Blood Cell Count 8.49 K/mm3 (4.00-11.30)
[2019-07-18 03:58] LABS: Platelet Count 43 K/mm3 (150-400)
[2019-07-18 04:08] LABS: Anion Gap 5 mmol/L (6-16); Blood Urea Nitrogen 25 mg/dL (8-24); Bun/Creatinine Ratio 56.7 (12.0-20.0); CO2, Blood 24 mmol/L (21-32); Calcium, Blood 7.8 mg/dL (8.5-10.1); Chloride, Blood 115 mmol/L (98-108); Creatinine, Blood 0.44 mg/dL (0.40-1.00); Glomerular Filtration Rate >60 (60-); Glucose, Blood 220 mg/dL (70-99); Magnesium, Blood 1.7 mg/dL (1.6-2.4); Phosphorus, Blood 1.9 mg/dL (2.5-4.9); Potassium, Blood 3.2 mmol/L (3.5-5.5); Sodium, Blood 144 mmol/L (136-145)
--- NOTE | 2019-07-18 06:06 | NUR ---
Shift Summary: Patient slept on/off throughout shift. No changes in neuro status noted. continues to respond to verbal stimuli and track staff/family throughout room. Not following any commands, no movement of extremities, turns head [id number]. Occasionally smiles at staff or family. Appeared uncomfortable at times (facial grimace, increased movement of head), effectively/quickly managed with repositioning. Remained o T-peice to Trach throughout shift, o2-94-96%, no s/s of dyspnea/SOB, VSS. PICC line to OSVALDO remains patent and intact, infusing without difficulty. Lagunas cath patent and intact, draining clear, dark yellow urine. Rectal tube patent and intact, but only minimal drainage noted in tube, position of rectal tube changed this shift. Patient sleeping at this time. Will continue to monitor until report to day shift RN.
--- NOTE | 2019-07-18 08:02 | NUR ---
BEDSIDE REPORT TAKEN AT 0700. PT SLEEPING, AROUSES TO SOUND/TOUCH. NO CHANGE IN NEURO STATUS FROM YESTERDAYS ASSESSMENT. PT OPENS EYES TO NAME AND LOOKS AT YOU BUT UNABLE TO FOLLOW EVEN SIMPLE COMMANDS. POSSIBLY SLIGHT MOVEMENT TO LEGS, NO MOVEMENT NOTED TO UPPER EXT; PT ABLE TO TURN HEAD AND HOLD HEAD UP FOR SHORT PERIODS OF TIME. TRACH COLLAR W 35% FIO2. PLAN: OOB TO CHAIR, ATTEMPT PT/OT, PULM TOILET, INCREASE MOBILITY.
--- NOTE | 2019-07-18 11:03 | NUR ---
PT AWAKE AND ALERT. PT ABLE TO FOLLOW SIMPLE COMMANDS AND IS ABLE TO NOD HEAD APPROPRIATELY TO QUESTIONS. PER HEAD NODS; PT DENIES PAIN, DENIES FEAR BUT C/O FEELING SAD, AND TIRED OF BEING IN HOSPITAL. PT NODS YES TO WANTING TO BE UP IN CHAIR TO LOOK OUT WINDOW. PT TRANSFERED TO CHAIR VIA LIFT. BUTTOCKS EXCORIATED FROM SMALL AMT OF LIQUID STOOL SEEPING FROM RECTAL TUBE. ORNAGE BARRIER CREAM APPLIED. CALLED PER PT REQUEST. DR HUYNH AT BEDSIDE. LASIX TO BE GIVEN. LEFT HAND WEEPING WHERE IV REMOVED LAST NIGHT, HAND WRAPPED WITH MAX-ABSORB AND GAUZE.
--- NOTE | 2019-07-18 13:24 | NUR ---
TRACH STITCHES REMOVED PER DR MCCALLUM. OKAY TO CHANGE OUT TRACH PER DR MCCALLUM. TRACH MET RESISTANCE WHEN RT ATTEMPTED TO TRADE TRACH OUT FOR NEW ONE. DR HUYNH AT BEDSIDE AND MET SAME RESISTANCE. TRACH TO LEFT IN UNTIL XENA CAN ASSESS TRACH. XENA TO BE NOTIFIED TOMORROW. TRACH CLEANED AND DRAINAGE SPONGE PLACED AROUND TRACH. PT WAS ABLE TO WORK W PT AGAIN. PT DENIES COMPLAINTS AND REMAINS UPRIGHT IN CHAIR. LASIX GIVEN IVP PER DR HUYNH.
--- NOTE | 2019-07-18 19:13 | NUR ---
PT OOB TO CHAIR FOR ENTIRE DAY. PT AWAKE, ALERT, AND VERY ENGAGED T/O SHIFT. PT DENIED C/O PAIN T/O SHIFT. PT REQUESTED TO STAY UP IN CHAIR UP UNTIL 1800. AT BEDSIDE MAJORITY OF SHIFT. PT JORDYN TF AT 35CC/HR. LASIX IVP GIVEN W GOOD RESULTS. PT'S HIPS SHIFTED T/O SHIFT, ROLLED TOWELS USED TO SUPPORT HEAD AND T-COLLAR. SECRETIONS REMAIN THICK AND DARK. PT WAS ABLE TO WORK W PHYSICAL THERAPIST TODAY. EXCORIATED BOTTOM W/O CHANGE FROM THIS AM. ORANGE CREAM REMAINS ON; NO LEAKING FROM RECTAL TUBE. ENT TO BE CONTACTED ABOUT CHANGING OUT TRACH RT AND DR HUYNH WERE UNABLE TO 2ND TO RESISTANCE.
--- NOTE | 2019-07-18 21:02 | NUR ---
[place] of Care: Care assumed at 1900hr. Patient alert, lying in bed watching tv. Patient responding easily to verbal stimuli, tracking staff throughout room. Nodding head yes or no to questions at times, but sometimes not able to follow this command. Moves bilateral feet to command, but no movement of upper extremities. Smiling at staff, and appears calm/comfortable. T-peice to trach at 7LPM with 25% FiO2, spO2- 93-96%. No s/s of dyspnea/SOB. BP/HR stable and wnl. PICC line to OSVALDO patent and intact, infusing without difficulty. TF to rt nare NG tube patent and intact, infusing Pivot 1.5 paz at goal of 35ml/hr. Call placed to Dr. Mullen r/t H20 flush via NG tube, received order to change flush from 250ml q3hr to 250ml q6hr. Rectal tube in place, draining liquid green stool. Will continue to monitor.
[2019-07-19 03:45] LABS: BASOPHILS ABSOLUTE AUTO 0.02 K/mm3 (0.00-0.23); BASOPHILS PERCENT AUTO 0 % (0-2); EOSINOPHILS ABSOLUTE AUTO 0.53 K/mm3 (0.00-0.68); EOSINOPHILS PERCENT AUTO 6 % (0-6); Hematocrit 28.8 % (33.0-51.0); Hemoglobin 9.2 g/dL (11.5-16.0); IMMATURE GRAN ABSOLUTE AUTO 0.13 K/mm3 (0.00-0.10); IMMATURE GRAN PERCENT AUTO 1 % (0-1); LYMPHOCYTES ABSOLUTE AUTO 1.18 K/mm3 (0.84-5.20); LYMPHOCYTES PERCENT AUTO 12 % (21-46); MONOCYTES ABSOLUTE AUTO 0.95 K/mm3 (0.16-1.47); MONOCYTES PERCENT AUTO 10 % (4-13); Mean Corpuscular HGB 30.4 pg (26.0-34.0); Mean Corpuscular HGB Conc 31.9 g/dL (31.5-36.5); Mean Corpuscular Volume 95 fL (80-100); NEUTROPHILS ABSOLUTE AUTO 6.72 K/mm3 (1.96-9.15); NEUTROPHILS PERCENT AUTO 70 % (41-73); RDW Coefficient Variation 21.6 % (11.7-14.2); RDW Standard Deviation 68.8 fL (35.1-46.3); Red Blood Cell Count 3.03 M/mm3 (3.80-5.20); White Blood Cell Count 9.53 K/mm3 (4.00-11.30)
[2019-07-19 03:47] LABS: Platelet Count 71 K/mm3 (150-400)
[2019-07-19 03:52] LABS: Anion Gap 4 mmol/L (6-16); Blood Urea Nitrogen 23 mg/dL (8-24); Bun/Creatinine Ratio 49.8 (12.0-20.0); CO2, Blood 26 mmol/L (21-32); Calcium, Blood 7.7 mg/dL (8.5-10.1); Chloride, Blood 116 mmol/L (98-108); Creatinine, Blood 0.46 mg/dL (0.40-1.00); Glomerular Filtration Rate >60 (60-); Glucose, Blood 169 mg/dL (70-99); Magnesium, Blood 1.7 mg/dL (1.6-2.4); Phosphorus, Blood 1.5 mg/dL (2.5-4.9); Potassium, Blood 3.1 mmol/L (3.5-5.5); Sodium, Blood 146 mmol/L (136-145)
--- NOTE | 2019-07-19 06:17 | NUR ---
Shift Summary: Patient slept on/off throughout shift. Continues to rouse/respond easily to verbal stimuli. Continues to nod head yes/no at times, track throughout room, and smile at staff. Able to move feet on command, but no movement of upper extremities. Appears calm and comfortable, no s/s of pain, dyspnea or SOB. Continues on T-peice to trach at 7LPM with 25% FiO2, spO2-93-96%. Trach care provided early this shift. PICC line to OSVALDO remains patent and intact, dressing changed early this shift. Lagunas cath and rectal tube remain patent and intact, draining to gravity. Sleeping at this time. Will continue to monitor until report to day shift RN.
--- NOTE | 2019-07-19 09:57 | NUR ---
PT IS NODDING HEAD TO QUESTIONS, AND CONVERSATION BUT IT IS UNCLEAR IF IT IS AN ANSWER OR A NON SPECIFIC REACTION, WILL CONT TO ASSESS. TF RATE AND FLUSH NOTED. PT RECTAL REMOVED PER PT, AND REPLACED WITH SOME SMALL SKIN IRRITATION NOTED THAT WAS CLEANED AND COVERED WITH MEPLEX. IVPB INFUSING NOTED PER EMAR. IVF D5W TKO. TRACH COLAR INTACT AND PATENT WITH MINIMAL SX NOTED, SMALL OLD SX DEEP ORALLY. NG PATENT AND NO RESIDUAL, WILL INQUIRE AND CLARRIFY PT NEED AND PLAN FOR PEG TUBE. DR RIOS OFFICE CALLED AND DR RIVAS WILL BE IN 07/20 TO REPLACE THE FIRST TRACH. TRACH IS IN GOOD POSITON AND EXTRA STRAP SUPPORT TO SECURE.
--- NOTE | 2019-07-19 13:21 | NUR ---
EVEN COMMMANDS THAT WERE REPORTED BY DR YEAGER PT SEEMS UNABLE TO DUPLICATE WITH CONSISTANTLY. PT DENIES PAIN OR DISTRESS.
--- NOTE | 2019-07-19 15:10 | NUR ---
RT JUST PLACE PT ON R.A. AT 21% W/O DISTRESS OR NOTED SOB CURRENTLY, WILL FOLLOW.
--- NOTE | 2019-07-19 16:30 | NUR ---
FAM Conference w/, ED & Aleta Bell after case conf w/Dr and RN: Visit made to pt's ICU rm. She is awake and alert. If asked by she smiles at us. Pt appears worried with furrowed brow. I am unable to assess her level of understanding or cognition. She has trach and collar on. NG tube for feeding in place. Chaplain River in room when I arrived. She has a longstanding history with pt/, thru many illnesses over the years. ED, pickle processor and I met in conference room to discuss current challenges and current status per my conversation with her hospitalist and request for family conference to revisit goals of care and prognosis. Pt has had NG tube and feedings for a number of weeks. Per drs, she is not a candidate for a peg tube due to liver failure and resulting ascites. This was explained to her , in simple terms, and consequences of no viable child adolescent psychiatrist route for nutrition and fluids once the NG tube needs to be removed. Ed verbalizes understanding and states he can see in her eyes that she is suffering, that she is dying and that her liver failure is worsening. He feels her abdomen is more distended and that she appears jaundiced in the eyes to him. He reports that they have kept her end stage liver disease and lung disease at bay for many years and that she has recovered many times when it was believed she could not. WE discussed what Antonina would want, what would be required to continue agressive care, placement outside of the community, assisted institutionalized care. Ed is unsure if Antonina understands and comprehends or even recognizes him at times. He knows she would not want to live in a LTC facility, "hooked up to tubes and machines". Comfort care and hospice discussed. He was given possible options for pt's release from the hospital and would like to take her home if that is possible. He plans to discuss this with his son, Korey, who is his primary support person. Other family members have been in denial per and he may need some support to make them understand. and Carlyle spoke to Ed at length and he was able to verbalize good understanding of all that we covered. He is appropriately tearful and grieving the loss of his 's health and life. He understands that even though her LOC and lungs may be improved since admission that her multiple, severe, comorbidities are limiting any child adolescent psychiatrist recovery to her pre-hospital state. Plan to follow daily and cont to support and family with advanced care planning and EOL care decisions.
--- NOTE | 2019-07-19 18:17 | NUR ---
PT RESTING WELL WITH FAMILY VISITING AROUND PT. FAMILY HAS SOMME QUESTIONS AND A.M. APPOINTMENT HAS BEEN ARRANGED. I/O NOTED. PT HAS BEEN TURNED DOWN TO 21% FOR ABOUT 2 HOURS AND WAS RETURNED TO 26% O2 AT APPROX 1700. PT HAS DENIED PAIN THIS SHIFT. PT HAS BEEN TOLERATING TF. DIARRHEA PERSISTS VIA RECTAL TUBE OF BROWN LIQUID STOOL. PT REMAINS SR AND VSS.
--- NOTE | 2019-07-19 19:13 | NUR ---
Spiritual care note: Present for POC conference between spouse, ED, and palliative care RN, Dahlia. Ed appears to understand Antonina's dire prognosis, but he is still processing this reality. He states that he beleives she is ready to "go" and that she is suffering. Dahlia carefully explained options, including outcomes for each. Ed verbalized understanding, but would like to speak to his son before making decision. Antonina has survived "poor prognosis" and "terminal dx" at least four times in the years that I have known her. So, it is understandable that this family has difficulty beleiveing this very poor prognosis. What is different this time is she does seem to be suffering, and Ed admits she is dying. Family will require gentle explainations in clear and understandable terms probably more than once. Antonina is the center of this family, therefore this will be a tremendous emotional burden. They will benefit from consistent terminology regarding dire outcomes. Ed admits that Antonina "did not want any of this." I will continue providing support and prayer for this pt and family.
--- NOTE | 2019-07-19 21:56 | NUR ---
ASSUMED CARE OF PT, REPORT RCV'D FROM ALEKSANDER MCGREGOR. PT ALERT TO VERBAL STIMULATION, PT SMILES, NODS HEAD YES/NO IN RESPONSE TO QUESTIONS. PT FOLLOWS COMMANDS, WINKS AT FAMILY MEMBERS AND TURNS HEAD TOWARD VERBAL STIMULUS. BILATERAL UPPER EXTREMETIES FLACCID, PT EXHIBITS SLIGHT GROSS MOVEMENET OF BILATERAL LOWER EXTREMETIES. PT'S SON AND AT BEDSIDE. UPDATED WITH PLAN OF CARE AND MEETING WITH HOSPITALIST IN AM. T-PIECE TRACH WITH 26% FIO2. MODERATE AMOUNT OF THICK COLMENARES SECRETIONS SUCTIONED. PIVOT 1.5 INFUSING AT GOAL RATE OF 35 ML/HR WITH 250 ML Q6 FLUSH. RECTAL TUBE PATENT AND DRAINING LIQUID BROWN STOOL. TEMP PROBE GEORGE PATENT DRAINING CLOUDY YELLOW URINE. SEE FULL SHIFT ASSESSMENT
[2019-07-20 03:36] LABS: BASOPHILS ABSOLUTE AUTO 0.01 K/mm3 (0.00-0.23); BASOPHILS PERCENT AUTO 0 % (0-2); EOSINOPHILS ABSOLUTE AUTO 0.41 K/mm3 (0.00-0.68); EOSINOPHILS PERCENT AUTO 6 % (0-6); Hematocrit 28.5 % (33.0-51.0); Hemoglobin 9.1 g/dL (11.5-16.0); IMMATURE GRAN PERCENT AUTO 1 % (0-1); LYMPHOCYTES ABSOLUTE AUTO 0.93 K/mm3 (0.84-5.20); LYMPHOCYTES PERCENT AUTO 13 % (21-46); MONOCYTES ABSOLUTE AUTO 0.75 K/mm3 (0.16-1.47); MONOCYTES PERCENT AUTO 10 % (4-13); Mean Corpuscular HGB 30.4 pg (26.0-34.0); Mean Corpuscular HGB Conc 31.9 g/dL (31.5-36.5); Mean Corpuscular Volume 95 fL (80-100); NEUTROPHILS ABSOLUTE AUTO 5.02 K/mm3 (1.96-9.15); NEUTROPHILS PERCENT AUTO 70 % (41-73); RDW Coefficient Variation 22.3 % (11.7-14.2); RDW Standard Deviation 74.4 fL (35.1-46.3); Red Blood Cell Count 2.99 M/mm3 (3.80-5.20); White Blood Cell Count 7.22 K/mm3 (4.00-11.30)
[2019-07-20 03:37] LABS: Platelet Count 49 K/mm3 (150-400)
[2019-07-20 03:47] LABS: Alanine Aminotransfer (ALT/SGP 98 U/L (12-78); Albumin, Blood 2.1 g/dL (3.4-5.0); Albumin/Globulin Ratio 0.8 (0.8-1.8); Alk Phos 320 U/L (50-136); Anion Gap 6 mmol/L (6-16); Aspartate Aminotrans (AST/SGOT 54 U/L (12-37); Bilirubin, Total 3.1 mg/dL (0.1-1.0); Blood Urea Nitrogen 22 mg/dL (8-24); Bun/Creatinine Ratio 51.3 (12.0-20.0); CO2, Blood 25 mmol/L (21-32); Calcium, Blood 7.6 mg/dL (8.5-10.1); Chloride, Blood 115 mmol/L (98-108); Creatinine, Blood 0.43 mg/dL (0.40-1.00); Globulin, Blood 2.7 g/dL (2.2-4.0); Glomerular Filtration Rate >60 (60-); Glucose, Blood 206 mg/dL (70-99); Magnesium, Blood 1.7 mg/dL (1.6-2.4); Phosphorus, Blood 1.7 mg/dL (2.5-4.9); Potassium, Blood 3.6 mmol/L (3.5-5.5); Sodium, Blood 146 mmol/L (136-145); Total Protein, Blood 4.8 g/dL (6.4-8.2); Vancomycin, Trough <0.8 ug/mL (5.0-10.0)
--- NOTE | 2019-07-20 06:30 | NUR ---
SHIFT USMMARY PT AWAKE MOST OF THE NIGHT, REMAINED RESPONSIVE AND ABLE TO APPROPRIATELY ANSWER QUESTIONS WITH HEAD NO AND FOLLOW COMMANDS. PT DISPLAYS GROSS MOVEMENT BLE, NO BUE MOVEMENT NOTICED. RECTAL TUBE REMAINS PATENT, 20 MLS WATERY STOOL THIS SHIFT. TEMP GEORGE DRAINED 900 ML DARK YELLOW URINE. NGT FAILS TO FLUSH FOLLOWING REPOSITIONING @0600. WILL PASS ON TO DAYSHIFT NEED TO REPLACE. TF PLACED ON STANBY AT THIS TIME. WILL REPORT TO DAYSHIFT NURSE.
--- NOTE | 2019-07-20 12:53 | NUR ---
Dobhoff - placed into LT. nostril with some difficulty. Placement verfied by Dr. Grande. Tube inserted to the 50cm kareen. Tube secured in place with nasogastric statlock.
--- NOTE | 2019-07-20 13:34 | NUR ---
AM NOTE... SON LEONIDAS IN ROOM AND HAVE ARRANGED FOR HIM TO SPEAK WITH DR'S PRAVEEN AND SHOBHA. PT IS ALERT WITH INCONSISTANT REQUESTS AND COMMMANDS. PT IS HOWEVER MORE ALERT, RESPONSE TO NAME AND SOME COMMANDS BUT IS NOT COMPLETELY CONSISTANT. MINIMAL RESPONSE OF LOWER EXT. WITH SOME EXTENSION AND SL FLEXION BUT VERY LIMITED TO NO MOVEMENT OF ARM WITH SOME SHOULDER SHRUGS NOTED AT TIMES. PT IS MAKING GOOD EYE CONTACT BUT THIS TO FADES AND EYES WILL WONDER. TRACH IS IN GOOD PLACE WITH 26% T-PIECE AND SCHEDULED FOR TRACH CHANGE OUT TODAY PER DR RIVAS. LUNGS CLEAR UPPER, SL DIM BASES, AND SOME YELLOW SPUTUM SX AT TIMES. NG WAS FLUSHED OUT AND TF RESTARTED W/O NOTED RESIDUALS. STOOLING PERSISTS OF LIQUID BROWN. EDEMA NOTED OF HAND AND SL IN FEET. SKIN TO BUTTOCKS AND FREDY RECTAL AREA IS RED, CLEANED, LOTIONED, SKIN BARRIOR DSG APPLIED TO IMPROVING SKIN REDNESS.
--- NOTE | 2019-07-20 14:20 | NUR ---
PT WAS IN TO WORK WITH PT. PT WAS MOVED TO A TILT TABLE POSITION FOR APPROX 45 MIN AND TOLERATED WELL. PT WAS PUSHING UP SOME FROM FOOT BOARD AND WAS QUITE ALERT AND ACTIVE. DURING THIS TIME. AT APPROX 1215 PT NG WAS REMOVED FROM R NARE AND REPLACED TO L NARE. SEE Coty DAMON RN NOTE. PT IN TO ROOM TO VISIT AND IS AWARE OF CHANGE TO DOBB JULIO C TUBE AND UPDATE TO PT GENERAL STATUS. AT APPROX 1400 MAYO, RT CHANGED PT TO 2L 21% T-PEICE. WILL FOLLOW STATUS.
--- NOTE | 2019-07-20 16:51 | NUR ---
CALL MADE TO DR RIVAS OFFICE TO NELYY HIS VISIT TO CHANGE OUT PT TRACH. PER OFFICE STAFF, THIS CHANGE WILL BE DELAYED TILL FRIDAY. DR YEAGER WAS NOTIFYED AND AWARE OF DELAY.
--- NOTE | 2019-07-20 17:32 | NUR ---
DR YEAGER IN TO EVALUATE TRACH AND CUFF IS NOW DOWN. PT TOLERATING WITH SMALL AMT OF BLOODY SECREATIONS BEING COUGHED PER PT. SATS STABLE PER 26% T-PIECE.
--- NOTE | 2019-07-20 18:43 | NUR ---
PT HAS TOLERATED 1 HOUR OF TILT BED TYPE POSTION WITH EXERCISE OF QUADS, GASTROCNEMIOUS, SOME CORE MUSCLES, SEEMS TO HAVE MORE MOVEMENT OF UPPER SHOULDERS AND HEAD IN THIS POSITION.
--- NOTE | 2019-07-20 19:45 | NUR ---
ASSUMED PT CARE; ED AT BEDSIDE, PT IS ALERT, SMILING, NODDING. TURNS HEAD SIDE TO SIDE, ABLE TO WIGGLE TOES, MOVE SHOULDERS, UNABLE TO ANESTHESIOLOGY TECHNOLOGIST. O2 26% PER TRACH, CUFF IS DEFLATED. VSS, MONITOR SHOWS SR. TF PER DOBHOFF L NARE, 50CM AT NARE. GEORGE DRNG CONCENTRATED URINE, RECTAL TUBE W SCANT GREEN LIQUID DRNG. HOB IS ELEVATED. CONT TO MONITOR.
--- NOTE | 2019-07-21 | NUR ---
HAS GONE HOME. PT NOTED TO MOVE L ARM, GROSS MVMT PT HAS VERY LITTLE TONE. CONT TO ENC & MONITOR. ROM PROVIDED TO BOTH ARMS. SACRAL DRSG IN PLACE, REDNESS NOTED.
--- NOTE | 2019-07-21 02:10 | NUR ---
TRACH CLEANSED & DRSG CHANGED. CUFF CONT DEFLATED. ROM AGAIN PROVIDED W POSITION CHANGE. OCCAS COUGH W COLMENARES/YELLOW SECRETIONS, SOME STREAKS OF BLOOD. PT CONT ALERT, NODS & SMILES. TURNS HEAD TO COMMAND.
[2019-07-21 06:00] LABS: BASOPHILS ABSOLUTE AUTO 0.01 K/mm3 (0.00-0.23); BASOPHILS PERCENT AUTO 0 % (0-2); EOSINOPHILS ABSOLUTE AUTO 0.39 K/mm3 (0.00-0.68); EOSINOPHILS PERCENT AUTO 5 % (0-6); Hematocrit 29.3 % (33.0-51.0); IMMATURE GRAN ABSOLUTE AUTO 0.07 K/mm3 (0.00-0.10); IMMATURE GRAN PERCENT AUTO 1 % (0-1); LYMPHOCYTES ABSOLUTE AUTO 0.91 K/mm3 (0.84-5.20); LYMPHOCYTES PERCENT AUTO 11 % (21-46); MONOCYTES ABSOLUTE AUTO 0.93 K/mm3 (0.16-1.47); MONOCYTES PERCENT AUTO 11 % (4-13); Mean Corpuscular HGB 29.7 pg (26.0-34.0); Mean Corpuscular HGB Conc 30.7 g/dL (31.5-36.5); Mean Corpuscular Volume 97 fL (80-100); NEUTROPHILS ABSOLUTE AUTO 5.92 K/mm3 (1.96-9.15); NEUTROPHILS PERCENT AUTO 72 % (41-73); Platelet Count 60 K/mm3 (150-400); RDW Coefficient Variation 22.1 % (11.7-14.2); RDW Standard Deviation 77.4 fL (35.1-46.3); Red Blood Cell Count 3.03 M/mm3 (3.80-5.20); White Blood Cell Count 8.23 K/mm3 (4.00-11.30)
[2019-07-21 06:17] LABS: Anion Gap 5 mmol/L (6-16); Blood Urea Nitrogen 19 mg/dL (8-24); Bun/Creatinine Ratio 44.1 (12.0-20.0); CO2, Blood 27 mmol/L (21-32); Calcium, Blood 7.8 mg/dL (8.5-10.1); Chloride, Blood 113 mmol/L (98-108); Creatinine, Blood 0.43 mg/dL (0.40-1.00); Glomerular Filtration Rate >60 (60-); Glucose, Blood 216 mg/dL (70-99); Magnesium, Blood 1.8 mg/dL (1.6-2.4); Phosphorus, Blood 1.4 mg/dL (2.5-4.9); Potassium, Blood 3.4 mmol/L (3.5-5.5); Sodium, Blood 145 mmol/L (136-145)
--- NOTE | 2019-07-21 06:20 | NUR ---
PT SEEMED TO SLEEP WHEN UNDISTURBED. AWAKE, SMILES, NODS. NOTED TO MOVE L ARM, BUT UNABLE TO FABRICATION TECHNICIAN EITHER HAND. CONT TO MOVE FEET SPONTANEOUSLY. MINIMAL STOOL TONOC. CONT ON 26% TRACH COLLAR. CUFF REMAINS DEFLATED.
--- NOTE | 2019-07-21 08:00 | NUR ---
INITIAL ASSESSMENT PATIENT RESTING QUIETLY IN ROOM UPON ENTERING. SON SHOWED UP SHORTLY AFTER. PATIENT EXCITED TO SEE PATIENT. PATIENT RESPONDS TO VERBAL STIMULI WITH NODDING AND SHAKING OF HEAD. PATIENT FOLLOWS SOME COMMANDS. UPPER EXTREMITIES FLACCID, PATIENT DOES MOVE SHOULDERS AND FEET. SCLERA JAUNDICED. PATIENT DENIES PAIN. PATIENT AFEBRILE. PATIENT HAS 6.0 TRACH WITH T PIECE AND 26% HUMIDIFIED 02. CUFF DEFLATED AND IS SUPPOSED TO STAY THAT WAY UNTIL ENT DOCTOR HERE TO CHANGE TRACH OUT PER REPORT. SMALL AMOUNT OF THICK, COLMENARES SPUTUM BEING SUCTIONED FROM TRACH. LUNGS CLEAR IN UPPER LOBES AND DIMINISHED IN LOWER LOBES. PATIENT IN SR, HR IN THE 60S. BP STABLE. PATIENT HAS NON-PITTING, GENERALIZED EDEMA. PATIENT HAS DOBHOFF IN PLACE WITH PIVOT 1.5 TF INFUSING AT GOAL RATE OF 35 MLS/ HOUR WITH 250 ML WATER FLUSH Q6H. ABDOMEN MODERATELY DISTENDED, SOFT, NONTENDER, WITH NORMOACTIVE BS NOTED. PATIENT HAS RECTAL TUBE IN PLACE, DRAINING BROWN/ GREEN LIQUID. GEORGE IN PLACE DRAINING DARK YELLOW URINE WITH SEDIMENT NOTED. BUTTOCKS REDDENED. PATIENT HAS SCATTERED BRUISES AND ABRASIONS NOTED. SKIN JAUNDICED. SCAR TO L KNEE. D5W INFUSING TKO. PATIENT RECEIVING REPLACEMENTS FOR MAG AND PHOSPHORUS. BED LOW, CALL LIGHT IN REACH. WILL CONTINUE TO MONITOR PATIENT FREQUENTLY THROUGHOUT SHIFT.
--- NOTE | 2019-07-21 09:00 | NUR ---
DR. YEAGER INFORMED OF AM LAB RESULTS. INFORMED THAT PATIENT RECEIVING 30 MM SODIUM PHOSPHATE AND 2 G MAGNESIUM. INFORMED THAT PICC LINE INSERTION SITE APPEARS INFECTED. DR. YEAGER STATED TO PLACE PERIPHERAL IV AND REMOVE PICC.
--- NOTE | 2019-07-21 11:30 | NUR ---
[facility] clinical visit. Visit made to ICU with student nurse. Case conferenced with pt's RN prior to visit. Pt has passe halima valve placed and is able to be heard with verberlization now. Assessed mentation. She is unable to correctly nod yes or no to simple questions, ie "am I dressed in red?" When asked if she is hurting pt maintained eye contact but did not respond. Pt does not appear to be in distress or discomfort. Foot rub provided for therapeutic touch. Pt has NG for feedings, changed to oposite nares yesterday. Lagunas cath draining light yellow urine. Pt is unable to squeeze hands or push feet against my hands on demand. She does pedal feet sporatically but not in response to request. She lifts arms occassionally but doesn't use hands or demonstrate any fine motor use. PT in to work with pt as I was finishing visit. Case conferenced with PT, and after my visit.
--- NOTE | 2019-07-21 12:30 | NUR ---
PATIENT RESTING QUIETLY IN BED. PATIENT NOW ABLE TO SPEAK AFTER DR. YEAGER REPLACED TRACH WITH 6.0 CUFFLESS, FENESTRATED TRACH WITH PASSY MERLE VALVE. TRACH COLLAR IN PLACE WITH 26% HUMIDIFIED O2. PATIENT IN SB TO SR, HR 50S TO 60S. BP STABLE. CHARGE NURSE PLACED PG. PICC REMOVED INSERTION SITE APPEARED INFECTED. BS OF 283; COVERAGE GIVEN. PATIENT HAS NO COMPLAINTS AT THIS TIME. WILL CONTINUE TO MONITOR.
--- NOTE | 2019-07-21 14:50 | NUR ---
DR. YEAGER INFORMED THAT PATIENT HAS ONLY PUT OUT 82 MLS OF URINE THIS SHIFT. ORDER RECEIVED FOR 1000 CC BAG OF 1/2 NS. WILL CONTINUE TO MONITOR.
--- NOTE | 2019-07-21 15:15 | NUR ---
THADDEUS HOT PATCHER IN SPEAKING WITH PATIENT AND .
--- NOTE | 2019-07-21 16:00 | NUR ---
PATIENT RESTING QUIETLY IN BED. PATIENT AFEBRILE. PATIENT DENIES PAIN. PATIENT REMAINS SATTING 90% AND GREATER ON SAME O2 SETTINGS. PATIENT REMAINS IN SB TO SR, HR 50S TO 60S. BP STABLE. PATIENT HAS LIMITED UO OF 37 CC. PATIENT RECEIVED COMPLETE BED BATH. NO OTHER ACUTE CHANGES TO NOTE ON AT THIS TIME. WILL CONTINUE TO MONITOR.
[2019-07-21 16:26] LABS: Magnesium, Blood 2.2 mg/dL (1.6-2.4); Phosphorus, Blood 2.7 mg/dL (2.5-4.9); Potassium, Blood 3.4 mmol/L (3.5-5.5)
--- NOTE | 2019-07-21 17:17 | NUR ---
Spoke with , RENE, after THADDEUS orozco. He is optimistic re: her acceptance to their facility. He verbalized understanding that "the Lord could take her at any minute". He was holding his great granddau and expressing gratitude for all of his many blessings.
--- NOTE | 2019-07-21 17:18 | NUR ---
SPOKE WITH DR. YEAGER AND INFORMED OF PATIENT'S LAB RESULTS OF POTASSIUM OF 3.4, PHOS OF 2.7, MAG 2.2. ORDER RECEIVED FOR 20 MEQ IV KCL. INFORMED THAT PATIENT HAS ONLY HAD ADDITIONAL 37 CC URINE OUT SINCE LAST TALKED WITH HIM. STATED TO MONITOR OVERNIGHT AND HE WILL ASSESS UO STATUS AGAIN IN AM.
--- NOTE | 2019-07-21 18:39 | NUR ---
SHIFT SUMMARY PATIENT REMAINS RESPONDING TO VERBAL STIMULI. PATIENT REMAINS FOLLOWING SOME SIMPLE COMMANDS. PATIENT NOW VOCALIZING "YES" AND "NO" TO ANSWER QUESTIONS. PATIENT SOMETIMES SEEMS TO ANSWER "YES" TO ALL QUESTIONS BUT THEN AT OTHER TIMES WILL ANSWER WITH BOTH "YES" AND "NO". PATIENT REMAINS WEAK WITH FLACCID UPPER EXTREMITIES. BOTH OT AND PT WORKED WITH PATIENT THIS SHIFT. PATIENT HAD TMAX OF 98.9 DEGREES FAHRENHEIT. PATIENT'S TRACH CHANGED TO 6.0 UNCUFFED, FENESTRATED TRACH WITH PASSY MERLE VALVE. TRACH COLLAR IN PLACE WITH 26% HUMIDIFIED O2. PATIENT CONTINUED TO HAVE SMALL AMOUNT OF THICK, COLMENARES SPUTUM BEING SUCTIONED FROM TRACH. PATIENT REMAINED IN SB TO SR, HR 50S TO 60S. BP REMAINED STABLE. DOBHOFF REMAINED IN PLACE WITH TF INFUSING AT GOAL RATE. PATIENT HAD 125 MLS OF BROWN/ GREEN, LIQUID STOOL OUT FROM RECTAL TUBE. PATIENT HAD ONLY 119 MLS OF DARK YELLOW URINE, WITH SEDIMENT, OUT FROM GEORGE. DR. YEAGER AWARE. 1 L OF 1/2 NS INFUSING AT 150 MLS/ HOUR. NO CHANGE IN SKIN. PATIENT REPOSITIONED THROUGHOUT SHIFT AND RECEIVED COMPLETE BED BATH. PATIENT RECEIVED 2 G MAG, 30 MM SODIUM PHOS AND 40 MEQ KCL THIS SHIFT. BLOOD SUGARS 283 AND 173 THIS SHIFT; COVERAGE GIVEN BOTH TIMES. OT AND PT WORKED WITH PATIENT. MANY FAMILY MEMBERS IN TO SEE PATIENT THIS SHIFT. THADDEUS ALSO HERE TO SEE PATIENT. PATIENT HAS NO COMPLAINTS AT THIS TIME. BED LOW, CALL LIGHT IN REACH. WILL BE GIVING REPORT TO ONCOMING PRIMARY CARE PROVIDER NURSE SHORTLY. ARIEL
--- NOTE | 2019-07-21 18:48 | NUR ---
Routine spiritual care note: Met with family several times throughout this day. Spouse, Ed, feels hopeful after meeting with rehab folks from [facility]. Apparently, they told him they are hopeful Antonina will respond well to therapy and be able to "eat soft foods, regain her strength, and be able to return home in 3 weeks." He was very happy and excited. Antonina smiles easily, speaks one or two words, but is inconsistent with her answers. At times, she appears lucid, and others not so much. Regardless, both pt and family appear uplifted and hopeful. Spouse tells me Antonina will be transferred to facility tomorrow. Several prayers provided at family request. I will remain available.
--- NOTE | 2019-07-21 19:15 | NUR ---
ASSUMED PT CARE FROM ALEKSANDER VALENTINE PT RESTING IN BED. ALERT AND TRACKING WITH EYES. FOLLOWING SIMPLE COMMANDS. SPEAKING IN SHORT SENTENCES WITH PASSY-MERLE VALVE IN PLACE; HUMIDIFIED OXYGEN VIA TRACH COLLAR AT 26% FIO2. PT IS PLEASANT AND COOPERATIVE WITH CARES. DOBHOFF INFUSING PIVOT 1.5 AT GOAL OF 35MLS/HR WITH WATER FLUSHES 250CC Q4HRS. RECTAL TUBE IS PATENT AND DRAINING LOOSE BROWN STOOL TO GRAVITY. TEMP GEORGE CATHETER REMAINS PATENT AND DRAINING DARK, CLOUDY, HARVINDER COLORED URINE WITH SEDIMENT TO GRAVITY WELL. PT UNABLE TO PROPERLY USE CALL LIGHT AND REQUIRES FREQUENT CHECKS FOR NEEDS.
[2019-07-22 04:58] LABS: BASOPHILS ABSOLUTE AUTO 0.01 K/mm3 (0.00-0.23); BASOPHILS PERCENT AUTO 0 % (0-2); EOSINOPHILS ABSOLUTE AUTO 0.41 K/mm3 (0.00-0.68); EOSINOPHILS PERCENT AUTO 6 % (0-6); Hematocrit 29.1 % (33.0-51.0); IMMATURE GRAN ABSOLUTE AUTO 0.06 K/mm3 (0.00-0.10); IMMATURE GRAN PERCENT AUTO 1 % (0-1); LYMPHOCYTES ABSOLUTE AUTO 1.02 K/mm3 (0.84-5.20); LYMPHOCYTES PERCENT AUTO 14 % (21-46); MONOCYTES ABSOLUTE AUTO 0.78 K/mm3 (0.16-1.47); MONOCYTES PERCENT AUTO 10 % (4-13); Mean Corpuscular HGB 30.2 pg (26.0-34.0); Mean Corpuscular HGB Conc 30.9 g/dL (31.5-36.5); Mean Corpuscular Volume 98 fL (80-100); NEUTROPHILS PERCENT AUTO 70 % (41-73); Platelet Count 56 K/mm3 (150-400); RDW Coefficient Variation 22.4 % (11.7-14.2); RDW Standard Deviation 77.8 fL (35.1-46.3); Red Blood Cell Count 2.98 M/mm3 (3.80-5.20); White Blood Cell Count 7.48 K/mm3 (4.00-11.30)
[2019-07-22 05:14] LABS: Anion Gap 6 mmol/L (6-16); Blood Urea Nitrogen 22 mg/dL (8-24); CO2, Blood 25 mmol/L (21-32); Calcium, Blood 7.6 mg/dL (8.5-10.1); Chloride, Blood 109 mmol/L (98-108); Creatinine, Blood 0.48 mg/dL (0.40-1.00); Glomerular Filtration Rate >60 (60-); Glucose, Blood 146 mg/dL (70-99); Magnesium, Blood 2.1 mg/dL (1.6-2.4); Potassium, Blood 3.6 mmol/L (3.5-5.5); Sodium, Blood 140 mmol/L (136-145)
--- NOTE | 2019-07-22 05:37 | NUR ---
END OF SHIFT SUMMARY PT HAS REMAINED ALERT AND FOLLOWING COMMANDS. ABLE TO SPEAK IN LONGER SENTENCES WITH PASSY-MERLE VALVE IN PLACE. PT CONTINUES TO REPEAT THAT SHE IS READY TO GET OUT OF HERE. PLEASANT AND COOPERATIVE WITH CARES. 6.0 CUFFLESS, FENESTRATED TRACH; TRACH COLLAR IN PLACE WITH 26% HUMIDIFIED OXYGEN. PT IS VERY EDEMATOUS AND IS WEEPING; TOTAL BED LINEN CHANGE WITH DRY FLOWS PLACED. GEORGE CATH IS PATENT AND DRAINING DARK, CLOUDY, HARVINDER URINE WITH SEDIMENT TO GRAVITY. RECTAL TUBE IS PATENT AND DRAINING LOOSE, BROWN STOOL. WILL CONTINUE TO MONITOR UNTIL REPORT IS HANDED OFF TO ONCOMING RN.
--- NOTE | 2019-07-22 08:15 | NUR ---
INITIAL ASSESSMENT PATIENT RESPONDS TO VERBAL STIMULI. PATIENT APPEARS ORIENTED TO FAMILY AND FOLLOWING SOME COMMANDS. PATIENT MOSTLY SAYS "YES" AND "NO". PATIENT SOMETIMES SAYS SHORT SENTENCES. UPPER EXTREMITIES FLACCID. PATIENT ABLE TO MOVE LEGS AND SHOULDERS. SCLERA JAUNDICED. PATIENT AFEBRILE. NO COMPLAINTS OF PAIN. LUNGS DIMINISHED THROUGHOUT. 6.0 UNCUFFED, FENESTRATED TRACH IN PLACE WITH TRACH COLLAR TO 26% HUMIDIFIED 02. PASSY MERLE VALVE IN PLACE. PATIENT IN SR, HR 60S TO 70S. BP STABLE. PATIENT EDEMATOUS. DOBHOFF IN PLACE WITH TF INFUSING AT GOAL RATE. RECTAL TUBE IN PLACE DRAINING BROWN/ GREEN LIQUID STOOL. GEORGE DRAINING MINIMAL AMOUNT OF DARK YELLOW URINE WITH SEDIMENT NOTED. SKIN JAUNDICED. PATIENT HAS SCATTERED BRUISES AND ABRASIONS. SKIN DRY. SCAR TO L KNEE. BUTTOCKS REDDENED. 20 MM K PHOS INFUSING AT THIS TIME. PLATELETS 56 THIS AM AND POTASSIUM 3.4. BED LOW, CALL LIGHT IN REACH. WILL CONTINUE TO MONITOR PATIENT FREQUENTLY THROUGHOUT SHIFT.
--- NOTE | 2019-07-22 08:29 | NUR ---
DR. YEAGER UPDATED ON PATIENT. INFORMED THAT PATIENT HAD 325 CC URINE OUT OVER SAFETY ADVISOR. INFORMED THAT PLATELETS LOW AT 59 AND PHOSPHORUS LOW AT 2.0 THIS AM. INFORMED THAT 20 MM KPHOS INFUSING PER ICU ELECTROLYTE PROTOCOL.
--- NOTE | 2019-07-22 12:22 | NUR ---
PATIENT RESTING QUIETLY IN BED, WATCHING TV. NO COMPLAINTS OF PAIN. AFEBRILE. PATIENT REMAINS SATTING 90% AND GREATER ON SAME O2 SETTINGS. PATIENT REMAINS IN SR, HR 60S TO 70S. BP STABLE. BLOOD SUGAR OF 184; COVERAGE GIVEN. NO ACUTE CHANGES TO NOTE ON AT THIS TIME. WILL CONTINUE TO MONITOR.
--- NOTE | 2019-07-22 12:45 | NUR ---
[facility] HERE TO TRANSPORT PATIENT. CALLED AND MESSAGE LEFT TO INFORM.
--- NOTE | 2019-07-22 12:47 | NUR ---
SHIFT SUMMARY PATIENT REMAINED STABLE THROUGHOUT SHIFT. VITAL SIGNS STABLE. PATIENT HAD NO COMPLAINTS OF PAIN. PATIENT REMAINED AFEBRILE. PATIENT REMAINED SATTING 90% AND GREATER ON 26% HUMIDIFIED O2. PATIENT REMAINED IN SR, HR 60S TO 70S. BP STABLE. TF REMAINED AT GOAL RATE. DOBHOFF REMAINS IN PLACE. TF STOPPED FOR TRANSPLANT. RECTAL TUBE REMAINS IN PLACE, DRAINED 25 CC BROWN/ GREEN, LIQUID STOOL. PATIENT HAD NO CHANGE IN SKIN. PATIENT RECEIVED 20 MM K PHOS. PT AND OT WORKED WITH PATIENT. CALLED TO INFORM THAT TRANSFER HAS ALREADY ARRIVED TO TRANSPORT PATIENT TO [facility]. DID NOT ANSWER; MESSAGE LEFT BY CHARGE NURSE. PATIENT HAS LEFT UNIT WITH [facility]. PRIMARY NURSE TRIED TO CALL REPORT TO [facility] NURSE. INFORMED THAT THEY WILL CALL BACK FOR REPORT. WILL WAIT FOR CALL.
--- NOTE | 2019-07-22 14:10 | NUR ---
PRIMARY NURSE TRIED TO CALL REPORT TO RECEIVING VIBRA NURSE AGAIN.
--- NOTE | 2019-07-22 14:34 | NUR ---
REPORT GIVEN TO ASSUMING NURSE, HARLEEN SHAW, AT [facility].
--- NOTE | 2019-07-22 17:31 | NUR ---
Provided suportive visit and prayer to Antonina. She appears lucid, is speaking more clearly. She tells me she is happy she's still alive. She is hopeful for recovery. Antonina is being discharged to [facility] this afternoon.
== END 2019-07-22 12:55 | disposition short-term general hospital (02) | DRG 4 ==
LOC: ER 20:42 → ICUW 22:24 → ICUE 22:24
PROVIDERS: Emergency Medicine; Family Medicine; Internal Medicine; Internal Medicine Critical Care Medicine; Internal Medicine Pulmonary Disease; ADMIT Internal Medicine
PROC: 0BH17EZ Insertion of Endotracheal Airway into Trachea, Via Natural or Artificial Opening (ICD-10-PCS; principal; 2019-06-20)
PROC: 5A1955Z Respiratory Ventilation, Greater than 96 Consecutive Hours (ICD-10-PCS; 2019-06-20)
PROC: 3E043XZ Introduction of Vasopressor into Central Vein, Percutaneous Approach (ICD-10-PCS; 2019-06-20)
PROC: 02HV33Z Insertion of Infusion Device into Superior Vena Cava, Percutaneous Approach (ICD-10-PCS; 2019-06-20)
PROC: 0B113F4 Bypass Trachea to Cutaneous with Tracheostomy Device, Percutaneous Approach (ICD-10-PCS; 2019-07-06)
DX: A40.1 Sepsis due to streptococcus, group B (principal); J18.9 Pneumonia, unspecified organism; R65.21 Severe sepsis with septic shock; J96.01 Acute respiratory failure with hypoxia; J15.1 Pneumonia due to Pseudomonas; G92 Toxic encephalopathy; J69.0 Pneumonitis due to inhalation of food and vomit; N17.9 Acute kidney failure, unspecified; E87.0 Hyperosmolality and hypernatremia; J44.9 Chronic obstructive pulmonary disease, unspecified; K52.9 Noninfective gastroenteritis and colitis, unspecified; K72.90 Hepatic failure, unspecified without coma; E87.5 Hyperkalemia; E83.39 Other disorders of phosphorus metabolism; I95.9 Hypotension, unspecified; K74.60 Unspecified cirrhosis of liver; E11.65 Type 2 diabetes mellitus with hyperglycemia; Z79.4 Long term (current) use of insulin; K21.9 Gastro-esophageal reflux disease without esophagitis; D69.6 Thrombocytopenia, unspecified
CPT/HCPCS: 0099U; 31500; 31720; 36415; 36556; 36600; 51702; 70450; 71045; 71250; 72125; 74176; 74230; 76705; 76770; 80047; 80048; 80053; 80069; 80202; 82140; 82330; 82803; 82947; 83605; 83735; 83880; 84100; 84132; 84295; 84484; 85014; 85018; 85025; 85027; 85610; 86900; 86901; 87040; 87070; 87077; 87106; 87147; 87186; 87205; 90686; 92611; 93005; 93010; 93306; 93970; 94002; 94003; 94640; 94644; 94660; 96365-59; 96375-59; 97110; 97112; 97162; 97167; 97168; 97530; 99285-25; A9270; A9270-GY; C1751; C1769; C9113; G0008; J0610; J0692; J0696; J0713; J1100; J1644; J1650; J1815; J1940; J1956; J2060; J2185; J2250; J2543; J2704; J2920; J3010; J3370; J3475; J3480; J7030; J7050; J7060; J7070; J7120; P9046

== ENCOUNTER 2019-10-10 19:34 | Emergency (ER) | payer OTHER ==
[~2019-10-10] VITALS: Ht 149.9 cm; Wt 65.8 kg
[~2019-10-10 19:34] MED LIST changes: +ALBU3IS INH; +Fentanyl1 EAC4 TOP; +Generlac10 GM/15 M PO
[2019-10-10 20:09] LABS: BASOPHILS ABSOLUTE AUTO 0.02 K/mm3 (0.00-0.23); BASOPHILS PERCENT AUTO 0 % (0-2); EOSINOPHILS ABSOLUTE AUTO 0.45 K/mm3 (0.00-0.68); EOSINOPHILS PERCENT AUTO 4 % (0-6); Hematocrit 32.7 % (33.0-51.0); Hemoglobin 10.5 g/dL (11.5-16.0); IMMATURE GRAN ABSOLUTE AUTO 0.07 K/mm3 (0.00-0.10); IMMATURE GRAN PERCENT AUTO 1 % (0-1); LYMPHOCYTES ABSOLUTE AUTO 1.02 K/mm3 (0.84-5.20); LYMPHOCYTES PERCENT AUTO 9 % (21-46); MONOCYTES PERCENT AUTO 7 % (4-13); Mean Corpuscular HGB 27.5 pg (26.0-34.0); Mean Corpuscular HGB Conc 32.1 g/dL (31.5-36.5); Mean Corpuscular Volume 86 fL (80-100); NEUTROPHILS ABSOLUTE AUTO 8.77 K/mm3 (1.96-9.15); NEUTROPHILS PERCENT AUTO 79 % (41-73); RDW Coefficient Variation 20.8 % (11.7-14.2); RDW Standard Deviation 64.4 fL (35.1-46.3); Red Blood Cell Count 3.82 M/mm3 (3.80-5.20); White Blood Cell Count 11.13 K/mm3 (4.00-11.30)
[2019-10-10 20:11] LABS: Platelet Count 49 K/mm3 (150-400)
[2019-10-10 20:28] LABS: Alanine Aminotransfer (ALT/SGP 42 U/L (12-78); Albumin, Blood 2.3 g/dL (3.4-5.0); Albumin/Globulin Ratio 0.6 (0.8-1.8); Alk Phos 336 U/L (50-136); Anion Gap 10 mmol/L (6-16); Aspartate Aminotrans (AST/SGOT 45 U/L (12-37); Bilirubin, Total 2.1 mg/dL (0.1-1.0); Blood Urea Nitrogen 15 mg/dL (8-24); Bun/Creatinine Ratio 19.4 (12.0-20.0); CO2, Blood 23 mmol/L (21-32); Calcium, Blood 7.4 mg/dL (8.5-10.1); Chloride, Blood 104 mmol/L (98-108); Creatinine, Blood 0.78 mg/dL (0.40-1.00); Globulin, Blood 3.6 g/dL (2.2-4.0); Glomerular Filtration Rate >60 (60-); Glucose, Blood 149 mg/dL (70-99); Potassium, Blood 3.2 mmol/L (3.5-5.5); Sodium, Blood 137 mmol/L (136-145); Total Protein, Blood 5.9 g/dL (6.4-8.2)
[2019-10-10 20:36] LABS: Source, Urine Clean Catch
[2019-10-10 20:40] LABS: Appearance, Urine Clear (Clear); Bilirubin, Urine Neg (Neg); Blood, Urine Neg (Neg); Color, Urine Amber (P-Yellow); Glucose Qualitative, Urine Neg (Neg); Ketones, Urine Neg (Neg); Leukocyte Esterase, Urine Neg (Neg); Nitrite, Urine Neg (Neg); Protein, Urine Neg (Neg); Urobilinogen, Urine 1+ (Normal); pH, Urine 6.5 (5.0-8.0)
[2019-10-10] MEDS ORDERED: Keflex500 MG PO (21:45)
== END 2019-10-10 23:12 | disposition home or self-care (01) ==
LOC: ER 19:34
PROVIDERS: Emergency Medicine
DX: N39.0 Urinary tract infection, site not specified (principal); J44.9 Chronic obstructive pulmonary disease, unspecified; F17.200 Nicotine dependence, unspecified, uncomplicated; Z88.2 Allergy status to sulfonamides; Z88.8 Allergy status to other drugs, medicaments and biological substances; Z88.5 Allergy status to narcotic agent; Z79.899 Other long term (current) drug therapy; Z79.4 Long term (current) use of insulin; Z79.51 Long term (current) use of inhaled steroids
CPT/HCPCS: 36415; 71046; 74177; 80053; 81003; 85025; 87086; 93005; 93010; 96361-59; 96365-59; 99284-25; J0696; J7120; Q9967

== ENCOUNTER 2020-01-10 02:39 | Emergency (ER) | payer OTHER ==
[~2020-01-10] VITALS: Ht 149.9 cm; Wt 72.6 kg
[~2020-01-10 02:39] MED LIST changes: +Keflex500 MG PO
[2020-01-10 03:09] LABS: BASOPHILS ABSOLUTE AUTO 0.02 K/mm3 (0.00-0.23); BASOPHILS PERCENT AUTO 0 % (0-2); EOSINOPHILS ABSOLUTE AUTO 0.26 K/mm3 (0.00-0.68); EOSINOPHILS PERCENT AUTO 5 % (0-6); Hematocrit 33.3 % (33.0-51.0); Hemoglobin 10.2 g/dL (11.5-16.0); IMMATURE GRAN ABSOLUTE AUTO 0.02 K/mm3 (0.00-0.10); IMMATURE GRAN PERCENT AUTO 0 % (0-1); LYMPHOCYTES ABSOLUTE AUTO 0.69 K/mm3 (0.84-5.20); LYMPHOCYTES PERCENT AUTO 12 % (21-46); MONOCYTES ABSOLUTE AUTO 0.43 K/mm3 (0.16-1.47); MONOCYTES PERCENT AUTO 8 % (4-13); Mean Corpuscular HGB 26.4 pg (26.0-34.0); Mean Corpuscular HGB Conc 30.6 g/dL (31.5-36.5); Mean Corpuscular Volume 86 fL (80-100); NEUTROPHILS ABSOLUTE AUTO 4.17 K/mm3 (1.96-9.15); NEUTROPHILS PERCENT AUTO 75 % (41-73); Platelet Count 74 K/mm3 (150-400); RDW Standard Deviation 53.3 fL (35.1-46.3); Red Blood Cell Count 3.86 M/mm3 (3.80-5.20); White Blood Cell Count 5.59 K/mm3 (4.00-11.30)
[2020-01-10 03:23] LABS: International Normalized Ratio 1.45; Prothrombin Time Results 15.2 Sec (9.7-11.5)
[2020-01-10 03:29] LABS: Alanine Aminotransfer (ALT/SGP 51 U/L (12-78); Albumin, Blood 2.5 g/dL (3.4-5.0); Albumin/Globulin Ratio 0.7 (0.8-1.8); Alk Phos 405 U/L (50-136); Anion Gap 7 mmol/L (6-16); Aspartate Aminotrans (AST/SGOT 46 U/L (12-37); Bilirubin, Total 1.7 mg/dL (0.1-1.0); Blood Urea Nitrogen 15 mg/dL (8-24); Bun/Creatinine Ratio 19.5 (12.0-20.0); CO2, Blood 32 mmol/L (21-32); Calcium, Blood 7.9 mg/dL (8.5-10.1); Chloride, Blood 97 mmol/L (98-108); Creatinine, Blood 0.77 mg/dL (0.40-1.00); Globulin, Blood 3.4 g/dL (2.2-4.0); Glomerular Filtration Rate >60 (60-); Glucose, Blood 340 mg/dL (70-99); Potassium, Blood 2.7 mmol/L (3.5-5.5); Sodium, Blood 136 mmol/L (136-145); Total Protein, Blood 5.9 g/dL (6.4-8.2); Troponin I <0.015 ng/mL (0.000-0.040)
[2020-01-10] MEDS ORDERED: ALBU90OI INH (04:18)
[2020-01-10] MEDS ORDERED: Prednisone20 MG PO (04:18)
[2020-01-10] MEDS ORDERED: BENZ100A PO (04:18)
[2020-01-10] MEDS ORDERED: TRAM50 PO (04:18)
== END 2020-01-10 04:45 | disposition home or self-care (01) ==
LOC: ER 02:39
PROVIDERS: Emergency Medicine
DX: J18.9 Pneumonia, unspecified organism (principal); Z88.2 Allergy status to sulfonamides; Z88.5 Allergy status to narcotic agent; Z88.8 Allergy status to other drugs, medicaments and biological substances; Z79.899 Other long term (current) drug therapy; Z79.4 Long term (current) use of insulin; Z79.2 Long term (current) use of antibiotics; J44.9 Chronic obstructive pulmonary disease, unspecified; Z86.19 Personal history of other infectious and parasitic diseases; F17.200 Nicotine dependence, unspecified, uncomplicated
CPT/HCPCS: 36415; 71045; 80053; 83880; 84484; 85025; 85610; 85730; 93005; 93010; 94640; 96374; 99285-25; A9270; J1885

== ENCOUNTER 2020-02-05 20:11 | Inpatient (IN) | payer OTHER ==
[~2020-02-05] VITALS: Ht 162.6 cm; Wt 72.2 kg
[~2020-02-05 20:11] MED LIST changes: +BENZ100A PO; +TRAM50 PO
[2020-02-05 20:57] LABS: BASOPHILS ABSOLUTE AUTO 0.05 K/mm3 (0.00-0.23); BASOPHILS PERCENT AUTO 1 % (0-2); EOSINOPHILS ABSOLUTE AUTO 0.29 K/mm3 (0.00-0.68); EOSINOPHILS PERCENT AUTO 4 % (0-6); Hematocrit 49.4 % (33.0-51.0); Hemoglobin 15.9 g/dL (11.5-16.0); IMMATURE GRAN ABSOLUTE AUTO 0.03 K/mm3 (0.00-0.10); IMMATURE GRAN PERCENT AUTO 0 % (0-1); LYMPHOCYTES ABSOLUTE AUTO 1.67 K/mm3 (0.84-5.20); LYMPHOCYTES PERCENT AUTO 20 % (21-46); MONOCYTES ABSOLUTE AUTO 0.85 K/mm3 (0.16-1.47); MONOCYTES PERCENT AUTO 10 % (4-13); Mean Corpuscular HGB 25.6 pg (26.0-34.0); Mean Corpuscular HGB Conc 32.2 g/dL (31.5-36.5); Mean Corpuscular Volume 80 fL (80-100); NEUTROPHILS ABSOLUTE AUTO 5.28 K/mm3 (1.96-9.15); NEUTROPHILS PERCENT AUTO 65 % (41-73); Platelet Count 119 K/mm3 (150-400); RDW Coefficient Variation 20.5 % (11.7-14.2); RDW Standard Deviation 54.5 fL (35.1-46.3); Red Blood Cell Count 6.21 M/mm3 (3.80-5.20); White Blood Cell Count 8.17 K/mm3 (4.00-11.30)
[2020-02-05 21:08] LABS: Source, Urine Clean Catch
[2020-02-05 21:10] LABS: Appearance, Urine Hazy (Clear); Bilirubin, Urine Neg (Neg); Blood, Urine Neg (Neg); Color, Urine Yellow (P-Yellow); Glucose Qualitative, Urine Neg (Neg); Ketones, Urine Neg (Neg); Leukocyte Esterase, Urine 1+ (Neg); Nitrite, Urine Neg (Neg); Protein, Urine Neg (Neg); Specific Gravity, Urine 1.005 (1.003-1.022); Urobilinogen, Urine NORM (Normal)
[2020-02-05 21:13] LABS: Alanine Aminotransfer (ALT/SGP 42 U/L (12-78); Albumin, Blood 3.5 g/dL (3.4-5.0); Albumin/Globulin Ratio 0.7 (0.8-1.8); Alk Phos 333 U/L (50-136); Anion Gap 15 mmol/L (6-16); Aspartate Aminotrans (AST/SGOT 64 U/L (12-37); Bilirubin, Total 4.6 mg/dL (0.1-1.0); Blood Urea Nitrogen 54 mg/dL (8-24); Bun/Creatinine Ratio 17.3 (12.0-20.0); CO2, Blood 20 mmol/L (21-32); Calcium, Blood 9.2 mg/dL (8.5-10.1); Chloride, Blood 102 mmol/L (98-108); Creatinine, Blood 3.13 mg/dL (0.40-1.00); Ethanol (Alcohol), Blood, Med <3 mg/dL; Globulin, Blood 4.8 g/dL (2.2-4.0); Glomerular Filtration Rate 16 (60-); Glucose, Blood 210 mg/dL (70-99); Potassium, Blood 3.7 mmol/L (3.5-5.5); Sodium, Blood 137 mmol/L (136-145); Total Protein, Blood 8.3 g/dL (6.4-8.2)
[2020-02-05 21:16] LABS: International Normalized Ratio 1.38; Prothrombin Time Results 14.5 Sec (9.7-11.5)
[2020-02-05] MEDS ORDERED: HUMALOG100 UNIT/1 SC (21:19)
[2020-02-05 21:20] LABS: Bacteria Many /hpf; Red Blood Cells, Urine Not Seen /hpf (0-2); Transitional Epithelial Cells Rare /hpf (0-Rare)
[2020-02-05 21:21] LABS: Renal Epithelial Rare /hpf (0-Rare); Squamous Epithelial Cells Mod /hpf (Few)
[2020-02-05] MEDS ORDERED: Bumetanide2 MG PO (21:22)
[2020-02-05] MEDS ORDERED: DOXE75C PO (21:22)
[2020-02-05] MEDS ORDERED: BASAGLAR K100 UNIT/1 SC (21:23)
[2020-02-05] MEDS ORDERED: METO2.5 PO (21:23)
[2020-02-05 21:29] LABS: U Amphetamine Screen Not Detected; U Barbituate Screen Not Detected; U Benzodiazapine Screen Not Detected; U Buprenorphine Screen Not Detected; U Cannabinoids Screen Not Detected; U Cocaine Screen Not Detected; U Methadone Screen Not Detected; U Methamphetamine Screen Not Detected; U Opiates Screen Not Detected; U Oxycodone Screen Not Detected; U Phencyclidine Screen Not Detected; U Propoxyphene Screen Not Detected
[2020-02-06 01:44] LABS: Source, Urine Catheter
[2020-02-06 01:54] LABS: Bilirubin, Urine Neg (Neg); Blood, Urine Neg (Neg); Glucose Qualitative, Urine Neg (Neg); Ketones, Urine Neg (Neg); Leukocyte Esterase, Urine 1+ (Neg); Nitrite, Urine Neg (Neg); Protein, Urine Neg (Neg); Urobilinogen, Urine NORM (Normal)
[2020-02-06 01:55] LABS: Appearance, Urine Clear (Clear); Color, Urine Yellow (P-Yellow)
[2020-02-06 02:02] LABS: Bacteria Many /hpf; Red Blood Cells, Urine Not Seen /hpf (0-2); Squamous Epithelial Cells Few /hpf (Few)
[2020-02-06 04:10] LABS: BASOPHILS ABSOLUTE AUTO 0.03 K/mm3 (0.00-0.23); BASOPHILS PERCENT AUTO 0 % (0-2); EOSINOPHILS ABSOLUTE AUTO 0.22 K/mm3 (0.00-0.68); EOSINOPHILS PERCENT AUTO 3 % (0-6); Hematocrit 44.1 % (33.0-51.0); IMMATURE GRAN ABSOLUTE AUTO 0.03 K/mm3 (0.00-0.10); IMMATURE GRAN PERCENT AUTO 0 % (0-1); LYMPHOCYTES ABSOLUTE AUTO 1.11 K/mm3 (0.84-5.20); LYMPHOCYTES PERCENT AUTO 16 % (21-46); MONOCYTES ABSOLUTE AUTO 0.78 K/mm3 (0.16-1.47); MONOCYTES PERCENT AUTO 11 % (4-13); Mean Corpuscular HGB 25.8 pg (26.0-34.0); Mean Corpuscular HGB Conc 31.7 g/dL (31.5-36.5); Mean Corpuscular Volume 81 fL (80-100); NEUTROPHILS ABSOLUTE AUTO 4.77 K/mm3 (1.96-9.15); NEUTROPHILS PERCENT AUTO 69 % (41-73); Platelet Count 76 K/mm3 (150-400); RDW Coefficient Variation 20.4 % (11.7-14.2); RDW Standard Deviation 56.4 fL (35.1-46.3); Red Blood Cell Count 5.42 M/mm3 (3.80-5.20); White Blood Cell Count 6.94 K/mm3 (4.00-11.30)
[2020-02-06 04:28] LABS: Albumin, Blood 2.9 g/dL (3.4-5.0); Albumin/Globulin Ratio 0.7 (0.8-1.8); Bilirubin, Total 3.4 mg/dL (0.1-1.0); Bun/Creatinine Ratio 20.6 (12.0-20.0); Creatinine, Blood 2.62 mg/dL (0.40-1.00); Globulin, Blood 3.9 g/dL (2.2-4.0); Potassium, Blood 2.7 mmol/L (3.5-5.5); Total Protein, Blood 6.8 g/dL (6.4-8.2)
--- NOTE | 2020-02-06 05:30 | NUR ---
PT ARRIVED FROM ED PRETTY LETHARGIC, MAINTAINED LETHARGIC THROUGH REST OF SHIFT. TELE NSR ROOM AIR - CONT. PULSE OX GI - LACTULOSE ENEMAS X2 - RECTAL TUBE IN PLACE, AND CHANGED BAG X2 ~3L STOOL OUTPUT - PT DID NOT VOID, BLADDER SCAN READ 999+ML, GEORGE PLACED, UA SENT, FREDY CARE PERFORMED. 1500ML CAME OUT. NO SKIN ISSUES VSS, BP HYPOTENSIVE CALL LIGHT WTIHIN REACH, BED IN LOWEST POSITION. WILL CONTINUE TO MONITOR.
--- NOTE | 2020-02-06 07:13 | NUR ---
ASSUMED CARE: PT FIDGETING IN BED, SAID HI TO STAFF. NS AND K RIDER RUNNING AT THIS TIME. GEORGE CATH AND RECTAL TUBE IN PLACE. BED ALARM ON. NO ACUTE NEEDS OR CONCERNS AT THIS TIME.
--- NOTE | 2020-02-06 08:19 | NUR ---
BEDSIDE SWALLOW EVAL COMPLETED. PT DID NOT HAVE ANY SIGNS OF ASPIRATION OR CHOKING BUT DOES NOT FOLLOW INSTRUCTIONS WELL. SHE IS AWAKE AND STATES NAME BUT DOES NOT KNOW BIRTHDAY OR WHERE SHE IS. SPEAKS TO STAFF CLEARLY BUT SLOW TO RESPOND AT TIMES. DINKEY ENGINEER AT BEDSIDE AT THIS TIME.
[2020-02-06 12:26] LABS: Bun/Creatinine Ratio 23.3 (12.0-20.0); Calcium, Blood 7.8 mg/dL (8.5-10.1); Creatinine, Blood 2.19 mg/dL (0.40-1.00)
--- NOTE | 2020-02-06 12:44 | NUR ---
CALL TO DR MYRICK TO REPORT POTASSIUM LEVEL AND TO DISCUSS LACTULOSE ORDER DUE TO PT BEING AWAKE ENOUGH TO TAKE ORAL AND CURRENTLY GETTING ENEMAS
--- NOTE | 2020-02-06 18:18 | NUR ---
SHIFT SUMMARY: PT AWAKE ENOUGH TO EAT AND TAKE ORAL MEDICATIONS BUT STILL CONFUSED AND REQUIRES PROMPTING WHEN GIVEN DIRECTIONS. AWARE OF NAME, FAMILY, AND LOCATION THIS AFTERNOON. WAS AT BEDSIDE A MAJORITY OF SHIFT. NO FURTHER NEEDS OR CONCERNS AT THIS TIME.
[2020-02-07 05:12] LABS: Albumin, Blood 2.6 g/dL (3.4-5.0); Albumin/Globulin Ratio 0.7 (0.8-1.8); Bilirubin, Total 3.6 mg/dL (0.1-1.0); Bun/Creatinine Ratio 27.9 (12.0-20.0); Calcium, Blood 7.5 mg/dL (8.5-10.1); Creatinine, Blood 1.65 mg/dL (0.40-1.00); Globulin, Blood 3.6 g/dL (2.2-4.0); Potassium, Blood 2.2 mmol/L (3.5-5.5); Total Protein, Blood 6.2 g/dL (6.4-8.2)
--- NOTE | 2020-02-07 06:34 | NUR ---
PATIENT CONFUSED AND SLIGHTLY LETHARGIC UPON ASSESSMENT. SHE IS ALERT TO SELF AND SITUATION AND IS SLOW TO RESPOND. SHE WAKES UP INTERMITTENTLY TO CALL OUT FOR ICE WATER AND ICECHIPS. SHE SPILLS ICE WATER ON THE FLOOR IF LEFT UNATTENDED. SHE IS RECEPTIVE TO TEACHING ALTHOUGH FORGETFUL. SHE IS COOPERATIVE WHEN GIVEN BREAKS AND IS NOT OVERWHELMED. RESTLESS IN BED, WILL PASS ON TO HAVE DR. PORRASRT MIRAPEX FOR RESTLESS LEGS. VSS, CALL LIGHT WITHIN REACH, WILL CONTINUE TO MONITOR UNTIL END OF SHIFT.
--- NOTE | 2020-02-07 09:50 | NUR ---
UPDATE ASSUMED CARE AT APPROXIMATELY 0800. PT ALERT AND ORIENTED TO SELF, PLACE, AND SITUATION. VS STABLE. HR NSR WITH PAC. PT DENIES ANY PAIN. RECTAL TUBE REMOVED. GEORGE PATENT AND DRAINING CLEAR YELLOW URINE. SMALL BLISTER NOTED TO INNER LEFT THIGH DIME SIZED. PT REPOSITIONED NEEDED AND PER REQUEST. PT ON CLEAR LIQUIDS AND TOLERATING WELL. STATUS CHANGED TO MEDICAL WITHOUT TELEMETRY AND REPORT CALLED TO ALEX ARMIJO. PT TAKEN UP BY BED.
--- NOTE | 2020-02-07 10:05 | NUR ---
PT ARRIVED TO THE UNIT VIA BED. SHE IS ALERT AND PLESANT. ORIENTED TO THE ROOM. PROVIDED APPLE JUICE. NO OTHER NEEDS AT THIS TIME
--- NOTE | 2020-02-07 17:23 | NUR ---
SHIFT SUMMARY- PT IS A/O, PLESANT AND COOPERATIVE. SHE IS EATING AND DRINKING WELL. HER BLOOD SUGAR LEVELS WERE ELEVATED THIS AFTERNOON. SHE TRANSFERED FROM PCU THIS MORNING. SHE HAS HAD TWO LOOSE BOWEL MOVMENTS. HER GEORGE IS PATIENT AND DRAINING. HER IV INFULTRATED AND WAS REPLACED.
--- NOTE | 2020-02-07 20:10 | NUR ---
ASSUMED CARE. DANELLE AT BEDSIDE. ASSISTED LIEUTENANT GENERAL IN BED CHANGE AND ATTENDS CHANGE. VERY LOOSE BM, HAS HAD SEVERAL TODAY. WILL HOLD LACTOLOSE TONIGHT. NO PAIN NOTED. LUNG SOUNDS CLEAR T/O. HR SINUS. ABDOMIN SLIGHTLY DISTENDED. SKIN INTACT EXCEPT SMALL OPEN AREA ON LEFT INNER THIGH. WILL PLACE A DRESSING. IV INFUSING INTO LEFT HAND. ABLE TO STATE ORIENTATION BUT IS FORGETFUL AND TENDS TO HAVE PERIODS OF CONFUSION. WILL MONITOR. CALL LIGHT IN REACH, BED ALARM ON.
[2020-02-07 23:25] LABS: Bun/Creatinine Ratio 29.5 (12.0-20.0); Calcium, Blood 7.9 mg/dL (8.5-10.1); Creatinine, Blood 1.12 mg/dL (0.40-1.00); Potassium, Blood 2.3 mmol/L (3.5-5.5)
--- NOTE | 2020-02-07 23:35 | NUR ---
SPOKE TO DR. HINOJOSA REGARDING CRITICAL POTASSIUM OF 2.3. NEW ORDER FOR 60MEQ k+ IV ORDERED.
--- NOTE | 2020-02-08 05:46 | NUR ---
SHIFT SUMMARY: AOX3 WITH CONFUSION NIGHT PROGRESSED. SOME HULLUCINATIONS AND TALKING TO SELF. DID NOT SLEEP AT ALL. CONSTANTLY CALLING AND REPEATING SELF FORGETTING WE JUST HELPED HER ON THAT SUBJECT. INCREASE IN BM'S, 4-5 LOOSE WATERY STOOL THIS SHIFT. HELD LACTOLOSE. ABDOMIN TENDER AND DISTENDED. BRUISING SCATTERED ALL OVER BODY. SMALL ULCER LIKE WOUND TO LEFT MEDIAL THIGH WITH SOME WHITE ESCAR. CLEANSED AND DRESSING APPLIED. CRITICAL K+ 2.3. HOSPITALIST CALLED, ORDER FOR 60MG K RIDER ORDERED. HAS BEEN INFUSING ALL NIGHT. IV IN LEFT HAND DC'D DUE TO PAIN. NEW STARTED IN RIGHT FA 22G. BS IN 100'S. LR CONTINUOUS. VS WNL, AFEBRILE. CATHETER REMAINED PATENT. BED ALARM REMAINED ON AND CALL LIGHT IN REACH.
[2020-02-08 08:29] LABS: Albumin, Blood 2.4 g/dL (3.4-5.0); Anion Gap 6 mmol/L (6-16); Blood Urea Nitrogen 24 mg/dL (8-24); Bun/Creatinine Ratio 24.9 (12.0-20.0); CO2, Blood 21 mmol/L (21-32); Calcium, Blood 7.7 mg/dL (8.5-10.1); Chloride, Blood 108 mmol/L (98-108); Creatinine, Blood 0.96 mg/dL (0.40-1.00); Glomerular Filtration Rate >60 (60-); Glucose, Blood 140 mg/dL (70-99); Phosphorus, Blood 2.1 mg/dL (2.5-4.9); Sodium, Blood 135 mmol/L (136-145)
[2020-02-08 08:30] LABS: Potassium, Blood 4.7 mmol/L (3.5-5.5)
[2020-02-08] MEDS ORDERED: POTA10T PO (13:37)
--- NOTE | 2020-02-08 13:49 | NUR ---
DISCHARGE SUMMARY PT SLIGHTLY CONFUSED T/O SHIFT BUT EASILY RE-ORIENTED. PT HAD SEVERAL LIQUID STOOLS THIS SHIFT DUE TO LACTULOSE. ARIEL AND BANG DC'D. PATIENT DC'D HOME WITH SON.
--- NOTE | 2020-02-08 18:22 | NUR ---
Antonina is well-known to me from years of hospitalizations. I know her family and have an easy rapport with spouse, Ed. This morning Antonina did not recognize me. This is very unusual for her. She was rather slow to respond. She was anxious to get up and dressed as "my son is coming to take me home." I prayed for her and offered encouragement. She appeared frail.
== END 2020-02-08 13:45 | disposition home or self-care (01) | DRG 441 ==
LOC: ER 20:11 → PCU 22:23 → MEDS 02-07 09:47
PROVIDERS: Emergency Medicine; Internal Medicine; ADMIT Internal Medicine
DX: K72.00 Acute and subacute hepatic failure without coma (principal); G92 Toxic encephalopathy; N17.9 Acute kidney failure, unspecified; I85.00 Esophageal varices without bleeding; E87.6 Hypokalemia; E11.65 Type 2 diabetes mellitus with hyperglycemia; G62.9 Polyneuropathy, unspecified; K74.60 Unspecified cirrhosis of liver; E11.22 Type 2 diabetes mellitus with diabetic chronic kidney disease; N18.3 Chronic kidney disease, stage 3 (moderate); J44.9 Chronic obstructive pulmonary disease, unspecified; B19.20 Unspecified viral hepatitis C without hepatic coma; F17.210 Nicotine dependence, cigarettes, uncomplicated; E86.9 Volume depletion, unspecified
CPT/HCPCS: 36415; 70450; 71045; 76770; 80048; 80053; 80069; 81001; 82140; 82947; 83735; 84100; 85025; 85610; 87077; 87086; 87186; 93005; 93010; 96360; 97162; 97165; 97530; 97535; 99285-25; A9270; A9270-GY; G0480; J0696; J1644; J2405; J3411; J3475; J3480; J7030; J7042; J7060; J7120; P9612

== ENCOUNTER 2020-02-23 13:48 | Day surgery (SDC) | payer OTHER ==
[~2020-02-23] VITALS: Ht 149.9 cm; Wt 65.1 kg
[~2020-02-23 13:48] MED LIST changes: +ALBU2.5V5 INH; +BASAGLAR K100 UNIT/1 SC; +Bumetanide2 MG PO; +DOXE75C PO; +ESCI20 PO; +HUMALOG100 UNIT/1 SC; +Klor-Con M1010 MEQ PO; +NYSTATIN100000 UN2 MT; +POTA10T PO; +SPIRIVA RESPIMAT4 G3 INH; +Tessalon200 MG PO
--- NOTE | 2020-02-23 14:23 | NUR ---
02/23/20 1423 BASSAM TAYLOR CHEM BG BY JOSE MARIA UNABLE TO SIGN INTIALS SIGNED BY ALEKSANDER
== END 2020-02-23 15:40 | disposition home or self-care (01) ==
LOC: ORSCSDS 13:48
PROVIDERS: Internal Medicine Gastroenterology
PROC: 0DJ08ZZ Inspection of Upper Intestinal Tract, Via Natural or Artificial Opening Endoscopic (ICD-10-PCS; principal; 2020-02-23 15:00)
DX: K74.69 Other cirrhosis of liver (principal); R13.14 Dysphagia, pharyngoesophageal phase; K22.2 Esophageal obstruction; K76.6 Portal hypertension; K22.8 Other specified diseases of esophagus; E11.22 Type 2 diabetes mellitus with diabetic chronic kidney disease; N18.3 Chronic kidney disease, stage 3 (moderate); K31.89 Other diseases of stomach and duodenum; J44.9 Chronic obstructive pulmonary disease, unspecified; R56.9 Unspecified convulsions; K29.70 Gastritis, unspecified, without bleeding; E66.9 Obesity, unspecified; Z68.32 Body mass index [BMI] 32.0-32.9, adult; Z87.891 Personal history of nicotine dependence; Z79.4 Long term (current) use of insulin; Z79.899 Other long term (current) drug therapy
CPT/HCPCS: 82947; J2704; J7120

== ENCOUNTER 2020-04-17 19:35 | Inpatient (IN) | payer SELFPAY ==
[~2020-04-17] VITALS: Ht 149.9 cm; Wt 74.5 kg
[2020-04-17 20:34] LABS: BASOPHILS ABSOLUTE AUTO 0.05 K/mm3 (0.00-0.23); BASOPHILS PERCENT AUTO 1 % (0-2); EOSINOPHILS ABSOLUTE AUTO 0.54 K/mm3 (0.00-0.68); EOSINOPHILS PERCENT AUTO 8 % (0-6); Hematocrit 39.9 % (33.0-51.0); Hemoglobin 12.3 g/dL (11.5-16.0); IMMATURE GRAN ABSOLUTE AUTO 0.03 K/mm3 (0.00-0.10); IMMATURE GRAN PERCENT AUTO 0 % (0-1); LYMPHOCYTES ABSOLUTE AUTO 0.81 K/mm3 (0.84-5.20); LYMPHOCYTES PERCENT AUTO 11 % (21-46); MONOCYTES PERCENT AUTO 7 % (4-13); Mean Corpuscular HGB 27.6 pg (26.0-34.0); Mean Corpuscular HGB Conc 30.8 g/dL (31.5-36.5); Mean Corpuscular Volume 90 fL (80-100); Mean Platelet Volume 9.2 fL (9.1-12.4); NEUTROPHILS ABSOLUTE AUTO 5.26 K/mm3 (1.96-9.15); NEUTROPHILS PERCENT AUTO 73 % (41-73); Platelet Count 73 K/mm3 (150-400); RDW Standard Deviation 83.3 fL (35.1-46.3); Red Blood Cell Count 4.46 M/mm3 (3.80-5.20); White Blood Cell Count 7.19 K/mm3 (4.00-11.30)
[2020-04-17 21:00] LABS: Troponin I <0.015 ng/mL (0.000-0.040)
[2020-04-17 21:10] LABS: Alanine Aminotransfer (ALT/SGP 39 U/L (12-78); Albumin, Blood 2.5 g/dL (3.4-5.0); Albumin/Globulin Ratio 0.7 (0.8-1.8); Alk Phos 326 U/L (50-136); Anion Gap 4 mmol/L (6-16); Aspartate Aminotrans (AST/SGOT 56 U/L (12-37); Bilirubin, Total 3.5 mg/dL (0.1-1.0); Blood Urea Nitrogen 12 mg/dL (8-24); Bun/Creatinine Ratio 10.9 (12.0-20.0); CO2, Blood 19 mmol/L (21-32); Calcium, Blood 9.2 mg/dL (8.5-10.1); Chloride, Blood 117 mmol/L (98-108); Globulin, Blood 3.4 g/dL (2.2-4.0); Glomerular Filtration Rate 53 (60-); Glucose, Blood 164 mg/dL (70-99); Sodium, Blood 140 mmol/L (136-145); Total Protein, Blood 5.9 g/dL (6.4-8.2)
[2020-04-17 21:11] LABS: Potassium, Blood 7.7 mmol/L (3.5-5.5)
[2020-04-17 22:00] LABS: Calcium, Ionized (POC) 1.33 mmol/L (1.10-1.46); Chloride (POC) 114 mmol/L (98-108); Creatinine (POC) 1.1 mg/dL (0.6-1.0); Glucose (ISTAT POC) 138 mg/dL (70-99); Hemoglobin (POC) 11.9 g/dL (12.0-16.0); Potassium (POC) 7.2 mmol/L (3.5-5.5); Sodium (POC) 137 mmol/L (135-148); Total CO2 (POC) 16 mmol/L (21-32)
[2020-04-17 22:01] LABS: Influenza A, PCR Negative (NEGATIVE); Influenza B, PCR Negative (NEGATIVE); Resp Syncytial Virus, PCR Negative (NEGATIVE); SARS-Cov-2 (COVID-19) PCR, MMC Negative (NEGATIVE)
[2020-04-17 23:41] LABS: CPK Creatine Kinase 135 U/L (26-193)
[2020-04-18 00:11] LABS: PO2 Arterial 61.4 mmHg (80-100); pH Blood Arterial 7.37 (7.35-7.45)
[2020-04-18 04:10] LABS: BASOPHILS ABSOLUTE AUTO 0.02 K/mm3 (0.00-0.23); BASOPHILS PERCENT AUTO 1 % (0-2); EOSINOPHILS ABSOLUTE AUTO 0.02 K/mm3 (0.00-0.68); EOSINOPHILS PERCENT AUTO 1 % (0-6); Hematocrit 37.9 % (33.0-51.0); Hemoglobin 11.9 g/dL (11.5-16.0); IMMATURE GRAN ABSOLUTE AUTO 0.03 K/mm3 (0.00-0.10); IMMATURE GRAN PERCENT AUTO 1 % (0-1); LYMPHOCYTES ABSOLUTE AUTO 0.27 K/mm3 (0.84-5.20); LYMPHOCYTES PERCENT AUTO 7 % (21-46); MONOCYTES ABSOLUTE AUTO 0.06 K/mm3 (0.16-1.47); MONOCYTES PERCENT AUTO 2 % (4-13); Mean Corpuscular HGB 27.9 pg (26.0-34.0); Mean Corpuscular HGB Conc 31.4 g/dL (31.5-36.5); Mean Corpuscular Volume 89 fL (80-100); Mean Platelet Volume 9.9 fL (9.1-12.4); NEUTROPHILS ABSOLUTE AUTO 3.59 K/mm3 (1.96-9.15); NEUTROPHILS PERCENT AUTO 90 % (41-73); Platelet Count 53 K/mm3 (150-400); RDW Coefficient Variation 25.9 % (11.7-14.2); RDW Standard Deviation 83.1 fL (35.1-46.3); Red Blood Cell Count 4.27 M/mm3 (3.80-5.20); White Blood Cell Count 3.99 K/mm3 (4.00-11.30)
[2020-04-18 04:34] LABS: Albumin, Blood 2.5 g/dL (3.4-5.0); Anion Gap 7 mmol/L (6-16); Blood Urea Nitrogen 15 mg/dL (8-24); Bun/Creatinine Ratio 12.9 (12.0-20.0); CO2, Blood 18 mmol/L (21-32); Calcium, Blood 9.4 mg/dL (8.5-10.1); Chloride, Blood 114 mmol/L (98-108); Creatinine, Blood 1.16 mg/dL (0.40-1.00); Glomerular Filtration Rate 50 (60-); Glucose, Blood 207 mg/dL (70-99); Phosphorus, Blood 4.6 mg/dL (2.5-4.9); Potassium, Blood 6.5 mmol/L (3.5-5.5); Sodium, Blood 139 mmol/L (136-145)
--- NOTE | 2020-04-18 05:02 | NUR ---
shift summary pt arrived from ed around 0200. pt transferred from stretcher and shifted her hips onto hospital bed - as pt explained she doesnt feel good about standing or walking right now bc she feels weak. pt is alert and oriented, but fidgety and seems restless. tele was placed and verified with monitor room - nsr. pt states she wears 1-2lnc at home when sleeping as needed. pt feels she doesnt need o2 tonight, her sats remain >90% on room air. because pt feels weak and unsteady, bed alarm is on in place for safety, and rn/career education teacher have placed an attends on pt and is using bedpan. pt states her "dog scratched her left foot" pictures are taken and in chart. pt potassium critically high at 6.5 - dr lucio notified and instructed said orders that were put in. monitored vs and labs. pt c/o generalized pain - tylenol given x1. tums and benadryl given x1. ivf d5ns @ 50ml/hr. vss, bed alarm on, call light within reach. bed in lowest position. will continue to monitor until handoff to oncoming rn.
[2020-04-18 08:32] LABS: Albumin, Blood 2.1 g/dL (3.4-5.0); Anion Gap 8 mmol/L (6-16); Blood Urea Nitrogen 15 mg/dL (8-24); Bun/Creatinine Ratio 14.3 (12.0-20.0); CO2, Blood 18 mmol/L (21-32); Calcium, Blood 8.8 mg/dL (8.5-10.1); Chloride, Blood 112 mmol/L (98-108); Creatinine, Blood 1.05 mg/dL (0.40-1.00); Glomerular Filtration Rate 56 (60-); Glucose, Blood 179 mg/dL (70-99); Potassium, Blood 5.9 mmol/L (3.5-5.5); Sodium, Blood 138 mmol/L (136-145)
--- NOTE | 2020-04-18 08:36 | NUR ---
NOTIFIED DR MARTIN OF K AND CO2; NEW ORDERS FOR 1/2 AMP BICARB IV TIMES 1 NOW. WILL CONTINUE TO MONITOR.
--- NOTE | 2020-04-18 17:08 | NUR ---
Prayer and encouragement provided to Antonina and ehr , Ed. Both are well-known to me from Antonina's numerous hospitalizations over the years. They are appreciaitve of spiritual support and we have an easy rapport. Antonina reports hope for return to baseline. I will continue to follow as schedule permits.
--- NOTE | 2020-04-18 17:35 | NUR ---
SHIFT SUMMARY PT A&Ox3; CALM AND COOPERATIVE WITH CARE. PT RESTING IN BED DURING SHIFT. UP TO BATHROOM WIHT 1 PERSON ASSIST. PT REPORTS RIGHT SHOULDER PAIN, MEDICATED WITH TYLENOL PER EMAR. PT SPO2 >90% ON RA; REPORTS NONPRODUCTIVE COUGH. PT DENIES CHEST PAIN, NAUSEA AND DIZZINESS. PT RECEIVING LOKELMA, K TRENDING DOWN. VSS. NO OTHER ACUTE CHANGES NOTED DURING SHIFT. WILL CONTINUE TO MONITOR UNITL REPORT GIVEN TO ONCOMING RN.
[2020-04-19 03:56] LABS: Hemoglobin 10.9 g/dL (11.5-16.0); Mean Corpuscular HGB 27.9 pg (26.0-34.0); Mean Corpuscular HGB Conc 32.1 g/dL (31.5-36.5); Mean Corpuscular Volume 87 fL (80-100); Platelet Count 60 K/mm3 (150-400); RDW Coefficient Variation 25.8 % (11.7-14.2); RDW Standard Deviation 80.4 fL (35.1-46.3); Red Blood Cell Count 3.91 M/mm3 (3.80-5.20)
[2020-04-19 04:16] LABS: Albumin, Blood 2.2 g/dL (3.4-5.0); Albumin/Globulin Ratio 0.7 (0.8-1.8); Bilirubin, Total 1.8 mg/dL (0.1-1.0); Bun/Creatinine Ratio 15.6 (12.0-20.0); Calcium, Blood 8.6 mg/dL (8.5-10.1); Creatinine, Blood 1.47 mg/dL (0.40-1.00); Globulin, Blood 3.1 g/dL (2.2-4.0); Magnesium, Blood 1.9 mg/dL (1.6-2.4); Potassium, Blood 4.7 mmol/L (3.5-5.5); Total Protein, Blood 5.3 g/dL (6.4-8.2)
--- NOTE | 2020-04-19 05:20 | NUR ---
shift summary pt rested comfortably through night. pt c/o pain x1 - tylenol given x1. pt biggest complaint is her indigestion. tums x2, and was able to get zofran ordered as well. pt given some sprite as well. did have 1 bout of emesis - small. potassium came back within normal ranges at 4.7. using bedside commode with one person assist. 1 bm. voiding. maintaining sats >90% on room air. tele verified with monitor room - nsr/sinus tach. pt able to make needs known. vss. call light within reach, bed in lowest position. will continue to monitor.
--- NOTE | 2020-04-19 14:14 | NUR ---
TRANSFER NOTE REPORT GIVEN TO ALEKSANDER SANTIAGO ASSUMING CARE OF PATIENT. PT TRANSFERING TO ROOM 333. PT A&Ox4; CALM AND COOPERATIVE WITH CARE. PT REPORTING PAIN TO RIGHT SHOULDER, PT STATES SHE DOES NOT TREAT IT AT HOME. PT SOB WITH EXERTION, SPO2 >90% ON RA. PT REPORTS HAINVNG "THE WORST HEART BURN FELA EVER HAD"; NOTIFIED DR STOUT; NEW ORDERS THIS AM ENTERED; PT PROVIDED GI COCKTAIL WITH MINIMAL RELEIFE; DR ALMONTE UPDATED WITH NO NEW ORDERS PROVIDED. PT DENIES CHEST PAIN OR DIZZINESS. CLARIFIED ORDER FOR CONTINOUS IV FLUIDS WITH DR MARTIN; NEW ORDERS TO D/C. VSS. NO OTHER ACUTE CHANGES NOTED. PT LEFT PCU 3 AT 1425.
--- NOTE | 2020-04-19 17:20 | NUR ---
SUMMARY PT TRANSFERED UP FROM PCU, PT ORIENTED TO ROOM AND CALL SYSTEM, PT ALERT AND ORIENTED, PLEASANT AND COOPERATIVE WITH CARE, GI CONSULT DONE, DR ZAMUDIO IN TO SEE THE PT, CT ABD ORDERED, PT AWARE, VSS, NO ACUTE CHANGES, WILL CONT TO MONITOR
--- NOTE | 2020-04-20 03:24 | NUR ---
SHIFT SUMMARY PATIENT HAD NO ACUTE CHANGES OBSERVED. AXOX 3 AND SBA TO BSC. POWERGLIDE OSVALDO INTACT. CBG 185. DENIES PAIN, SOB, AND N/V. VSS/AFEBRILE. GUAIFENESIN 10 mL GIVEN FOR COUGH PER EMAR. PATIENT REPORTS HELPS REDUCE COUGH SO SHE CAN SLEEP. REPORTS SHE HAS BEEN TIRED TODAY. CALL LIGHT IN REACH. BED IN LOWEST POSITION. WILL CONTINUE TO MONITOR UNTIL DAY SHIFT NURSE ASSUMES CARE.
[2020-04-20 06:02] LABS: Albumin, Blood 1.9 g/dL (3.4-5.0); Anion Gap 7 mmol/L (6-16); Blood Urea Nitrogen 22 mg/dL (8-24); Bun/Creatinine Ratio 15.9 (12.0-20.0); CO2, Blood 22 mmol/L (21-32); Calcium, Blood 8.3 mg/dL (8.5-10.1); Chloride, Blood 109 mmol/L (98-108); Creatinine, Blood 1.38 mg/dL (0.40-1.00); Glomerular Filtration Rate 41 (60-); Glucose, Blood 124 mg/dL (70-99); Phosphorus, Blood 3.9 mg/dL (2.5-4.9); Sodium, Blood 138 mmol/L (136-145)
--- NOTE | 2020-04-20 06:26 | NUR ---
NAUSEOUS X ONE AND IV ZOFRAN GIVEN PER EMAR.
[2020-04-20] MEDS ORDERED: TUMS500 MG PO (13:27)
[2020-04-20] MEDS ORDERED: FLUC150A PO (13:28)
[2020-04-20] MEDS ORDERED: PRAM.125 PO (13:29)
[2020-04-20] MEDS ORDERED: SUCR1 PO (13:31)
[2020-04-20] MEDS ORDERED: NYST237S PO (13:32)
[2020-04-20] MEDS ORDERED: PANT40 PO (13:33)
--- NOTE | 2020-04-20 17:19 | NUR ---
PT AOX4 AND COOPERATIVE OF CARE. PT RESTING IN BED MOST OF THE DAY. PT A ONE PERSON ASSIST TO BEDSIDE COMMODE. PT CALLED APPROPRIATELY. DISCHARGED AT 1655 WITH TO TRANSPORT. ALL PAPERWORK REVIEWED AND EDUCATIONAL MATERIAL SENT. NO DISTRESS NOTED VOLUNTEER ESCORTED PT OUT VIA WHEEL CHAIR ALL BELONGINGS COLLECTED.
== END 2020-04-20 16:57 | disposition home or self-care (01) | DRG 917 ==
LOC: ER 19:35 → MEDS 23:28 → PCU 23:28 → ERHOLD 23:28 → PCU 04-18 02:33 → MEDS 04-19 14:35
PROVIDERS: Emergency Medicine; Internal Medicine; Internal Medicine Nephrology; ADMIT Family Medicine
DX: T50.3X1A Poisoning by electrolytic, caloric and water-balance agents, accidental (unintentional), initial encounter (principal); I50.33 Acute on chronic diastolic (congestive) heart failure; I13.0 Hypertensive heart and chronic kidney disease with heart failure and stage 1 through stage 4 chronic kidney disease, or unspecified chronic kidney disease; N25.81 Secondary hyperparathyroidism of renal origin; B37.0 Candidal stomatitis; E87.2 Acidosis; Z20.828 Contact with and (suspected) exposure to other viral communicable diseases; E87.5 Hyperkalemia; N18.30 Chronic kidney disease, stage 3 unspecified; E11.22 Type 2 diabetes mellitus with diabetic chronic kidney disease; K21.9 Gastro-esophageal reflux disease without esophagitis; J44.9 Chronic obstructive pulmonary disease, unspecified; D69.6 Thrombocytopenia, unspecified; K74.60 Unspecified cirrhosis of liver; B19.20 Unspecified viral hepatitis C without hepatic coma; K12.30 Oral mucositis (ulcerative), unspecified; F41.8 Other specified anxiety disorders; G25.81 Restless legs syndrome; Z99.81 Dependence on supplemental oxygen; D64.9 Anemia, unspecified
CPT/HCPCS: 0241U; 36415; 36600; 71045; 73030; 74150; 76770; 80047; 80053; 80069; 82140; 82374; 82550; 82803; 82947; 83735; 83880; 84132; 84484; 85014; 85025; 85027; 93005; 93010; 94640; 94760; 96374; 96375; 99285-25; A9270; A9270-GY; C1751; C9113; J0610; J1100; J1644; J1815; J1940; J2405; J7042; J7799; Q0163

== ENCOUNTER → 2020-05-02 | Outpatient (CLI) | payer OTHER ==
[~2020-05-02] MED LIST changes: +FLUC150A PO; +NYST237S PO; +SUCR1 PO; +TUMS500 MG PO
[2020-05-02 19:10] LABS: BASOPHILS ABSOLUTE AUTO 0.06 K/mm3 (0.00-0.23); BASOPHILS PERCENT AUTO 1 % (0-2); EOSINOPHILS ABSOLUTE AUTO 0.43 K/mm3 (0.00-0.68); EOSINOPHILS PERCENT AUTO 5 % (0-6); Hematocrit 32.5 % (33.0-51.0); IMMATURE GRAN ABSOLUTE AUTO 0.08 K/mm3 (0.00-0.10); IMMATURE GRAN PERCENT AUTO 1 % (0-1); LYMPHOCYTES ABSOLUTE AUTO 0.72 K/mm3 (0.84-5.20); LYMPHOCYTES PERCENT AUTO 9 % (21-46); MONOCYTES ABSOLUTE AUTO 0.67 K/mm3 (0.16-1.47); MONOCYTES PERCENT AUTO 8 % (4-13); Mean Corpuscular HGB 28.8 pg (26.0-34.0); Mean Corpuscular HGB Conc 30.8 g/dL (31.5-36.5); Mean Corpuscular Volume 94 fL (80-100); NEUTROPHILS ABSOLUTE AUTO 6.45 K/mm3 (1.96-9.15); NEUTROPHILS PERCENT AUTO 77 % (41-73); Platelet Count 90 K/mm3 (150-400); RDW Coefficient Variation 26.2 % (11.7-14.2); RDW Standard Deviation 88.4 fL (35.1-46.3); Red Blood Cell Count 3.47 M/mm3 (3.80-5.20); White Blood Cell Count 8.41 K/mm3 (4.00-11.30)
== END | disposition home or self-care (01) ==
LOC: LAB 18:12
PROVIDERS: Internal Medicine Hematology & Oncology
DX: E61.1 Iron deficiency (principal); R53.83 Other fatigue
CPT/HCPCS: 85025

== ENCOUNTER → 2020-05-15 | Outpatient (CLI) | payer OTHER ==
[2020-05-15 18:13] LABS: Alanine Aminotransfer (ALT/SGP 32 U/L (12-78); Albumin, Blood 2.4 g/dL (3.4-5.0); Albumin/Globulin Ratio 0.7 (0.8-1.8); Alk Phos 235 U/L (50-136); Anion Gap 12 mmol/L (6-16); Aspartate Aminotrans (AST/SGOT 43 U/L (12-37); Bilirubin, Total 2.8 mg/dL (0.1-1.0); Blood Urea Nitrogen 14 mg/dL (8-24); Bun/Creatinine Ratio 14.4 (12.0-20.0); CO2, Blood 19 mmol/L (21-32); Calcium, Blood 7.7 mg/dL (8.5-10.1); Chloride, Blood 111 mmol/L (98-108); Creatinine, Blood 0.97 mg/dL (0.40-1.00); Globulin, Blood 3.3 g/dL (2.2-4.0); Glomerular Filtration Rate >60 (60-); Glucose, Blood 176 mg/dL (70-99); Magnesium, Blood 1.3 mg/dL (1.6-2.4); Phosphorus, Blood 2.3 mg/dL (2.5-4.9); Potassium, Blood 3.2 mmol/L (3.5-5.5); Sodium, Blood 142 mmol/L (136-145); Total Protein, Blood 5.7 g/dL (6.4-8.2)
== END ==
LOC: LAB 17:44
PROVIDERS: Internal Medicine Hematology & Oncology
DX: D50.0 Iron deficiency anemia secondary to blood loss (chronic) (principal)
CPT/HCPCS: 80053; 83735; 84100

== ENCOUNTER → 2020-06-22 | Outpatient (CLI) | payer SELFPAY ==
[2020-06-29 05:09] LABS: NOROVIRUS GI Negative (Negative); NOROVIRUS GII Negative (Negative)
== END | disposition home or self-care (01) ==
LOC: LAB 14:55 → LAB SHORT 14:55
PROVIDERS: Physician Assistant
DX: K72.91 Hepatic failure, unspecified with coma (principal); K92.1 Melena; D50.9 Iron deficiency anemia, unspecified; D69.6 Thrombocytopenia, unspecified; R19.7 Diarrhea, unspecified
CPT/HCPCS: 87015; 87045; 87046; 87205; 87329; 87493; 87798; 87899

== ENCOUNTER 2020-07-05 10:22 | Emergency (ER) | payer SELFPAY ==
[~2020-07-05] VITALS: Ht 149.9 cm; Wt 54.4 kg
[2020-07-05 12:23] LABS: BASOPHILS ABSOLUTE AUTO 0.06 K/mm3 (0.00-0.23); BASOPHILS PERCENT AUTO 1 % (0-2); EOSINOPHILS ABSOLUTE AUTO 0.45 K/mm3 (0.00-0.68); EOSINOPHILS PERCENT AUTO 7 % (0-6); Hematocrit 34.7 % (33.0-51.0); Hemoglobin 10.9 g/dL (11.5-16.0); IMMATURE GRAN ABSOLUTE AUTO 0.05 K/mm3 (0.00-0.10); IMMATURE GRAN PERCENT AUTO 1 % (0-1); LYMPHOCYTES ABSOLUTE AUTO 0.65 K/mm3 (0.84-5.20); LYMPHOCYTES PERCENT AUTO 10 % (21-46); MONOCYTES ABSOLUTE AUTO 0.61 K/mm3 (0.16-1.47); MONOCYTES PERCENT AUTO 10 % (4-13); Mean Corpuscular HGB 29.9 pg (26.0-34.0); Mean Corpuscular HGB Conc 31.4 g/dL (31.5-36.5); Mean Corpuscular Volume 95 fL (80-100); Mean Platelet Volume 9.4 fL (9.1-12.4); NEUTROPHILS ABSOLUTE AUTO 4.59 K/mm3 (1.96-9.15); NEUTROPHILS PERCENT AUTO 72 % (41-73); NRBC ABSOLUTE 0.02 K/mm3 (0.00-0.02); NRBC Auto 0.3 /100 WBC (0.0-0.2); Platelet Count 81 K/mm3 (150-400); RDW Coefficient Variation 19.9 % (11.7-14.2); Red Blood Cell Count 3.65 M/mm3 (3.80-5.20); White Blood Cell Count 6.41 K/mm3 (4.00-11.30)
[2020-07-05 12:42] LABS: Alanine Aminotransfer (ALT/SGP 29 U/L (12-78); Albumin, Blood 2.1 g/dL (3.4-5.0); Albumin/Globulin Ratio 0.5 (0.8-1.8); Alk Phos 281 U/L (50-136); Anion Gap 8 mmol/L (6-16); Aspartate Aminotrans (AST/SGOT 46 U/L (12-37); Blood Urea Nitrogen 10 mg/dL (8-24); Bun/Creatinine Ratio 11.8 (12.0-20.0); CO2, Blood 26 mmol/L (21-32); Calcium, Blood 7.3 mg/dL (8.5-10.1); Chloride, Blood 109 mmol/L (98-108); Creatinine, Blood 0.85 mg/dL (0.40-1.00); Globulin, Blood 4.1 g/dL (2.2-4.0); Glomerular Filtration Rate >60 (60-); Glucose, Blood 44 mg/dL (70-99); Potassium, Blood 2.8 mmol/L (3.5-5.5); Sodium, Blood 143 mmol/L (136-145); Total Protein, Blood 6.2 g/dL (6.4-8.2)
== END 2020-07-05 15:08 | disposition home or self-care (01) ==
LOC: ER 10:22
PROVIDERS: Emergency Medicine
DX: E11.649 Type 2 diabetes mellitus with hypoglycemia without coma (principal); E11.40 Type 2 diabetes mellitus with diabetic neuropathy, unspecified; J44.9 Chronic obstructive pulmonary disease, unspecified; Z87.891 Personal history of nicotine dependence; Z79.4 Long term (current) use of insulin; Z79.899 Other long term (current) drug therapy
CPT/HCPCS: 36415; 80053; 82947; 85025; 96374; 99285-25

== ENCOUNTER 2020-08-09 00:27 | Emergency (ER) | payer SELFPAY | END 2020-08-09 03:37 | disposition home or self-care (01) | LOC: ER 00:27 | DX: T20.24XA Burn of second degree of nose (septum), initial encounter (principal); J44.9 Chronic obstructive pulmonary disease, unspecified; E11.40 Type 2 diabetes mellitus with diabetic neuropathy, unspecified; Z23 Encounter for immunization; Z79.4 Long term (current) use of insulin; Z79.899 Other long term (current) drug therapy; W40.1XXA Explosion of explosive gases, initial encounter | CPT/HCPCS: 16020; 90471; 90714; 96374-59; 99283-25; A9270; J3010 ==